=== PATIENT | male | born 1960 | race Caucasian/White ===

== ENCOUNTER → 2017-12-22 08:36 | Outpatient (CLI) | payer OTHER, SELFPAY | PROVIDERS: Family Provider Internal Medicine; PCP Internal Medicine; Visit Provider Nurse Practitioner | DX: M79.672 Pain in left foot (principal) | CPT/HCPCS: 73630 ==

== ENCOUNTER → 2018-01-25 07:48 | Outpatient (CLI) | payer OTHER, SELFPAY ==
[2018-01-25 10:26] LABS: Erythrocyte Sedimentation Rate 28 mm/hr (0-20)
[2018-01-25 10:27] LABS: Absolute Lymphocyte Count 1.81 X10^3/ul (0.83-4.51); Absolute Neutrophil Count 6.9 X10^3/uL (2.0-7.7); Basophil# 0.04 X10^3/uL; Basophil% 0.4 % (0-1); Eosinophil# 0.16 X10^3/uL; Eosinophils% 1.6 % (0-5); Hematocrit 43.3 % (40-54); Hemoglobin 14.5 g/dl (13.0-16.5); Lymphocyte # 1.81 X10^3/ul (4.0); Lymphocyte % 18.2 % (19-41); Mean Corp Hgb Conc 33.5 g/gl (32-36); Mean Corpuscular Hgb 29.9 pg (27.0-32.0); Mean Corpuscular Volume 89.3 fL (80-94); Mean Platelet Vol. 10.6 fl (6.2-12.0); Monocyte# 1.02 X10^3/uL; Monocyte% 10.2 % (0-10); Neutrophil # 6.91 X10^3/uL (2.7-7.7); Neutrophil % 69.3 % (47-70); Platelet Count 243 K/mm3 (150-450); RBC Distribution Width CV 12.9 % (11.6-14.6); RBC Distribution Width SD 42.1 fl (35.1-43.9); Red Blood Count 4.85 M/mm3 (4.6-6.2)
[2018-01-25 10:30] LABS: POSITIVE COUNT NO; POSITIVE DIFFERENTIAL NO; POSITIVE MORPHOLOGY NO
[2018-01-25 10:45] LABS: ALB/GLOB Ratio 0.9 RATIO (0.9-2.4); AST(SGOT) 14 U/L (15-37); Alanine Aminotransfer ALT/SGPT 30 U/L (16-61); Albumin, Serum 3.7 g/dL (3.2-5.0); Alkaline Phosphatase 112 U/L (45-117); Anion Gap 7 (5-15); BUN 18 mg/dL (7-18); BUN/Creat Ratio 17.1 RATIO (10-20); CRP 8.46 mg/L (0.0-3.0); Chloride 108 mmol/L (98-107); Creatinine, Serum 1.05 mg/dL (0.70-1.30); EST Glomerular Filtration Rate 77 mL/min (>60); Est Glom Filt Rate - Afr Amer 94 mL/min (>60); Globulin 4.2 g/dL (2.2-4.2); Glucose 87 mg/dL (74-106); Potassium 4.5 mmol/L (3.5-5.1); Protein, Total 7.9 g/dL (6.4-8.2); Rheumatoid Factor < 10.0 IU/mL (<15); Sodium Level 142 mmol/L (136-145); Uric Acid 6.1 mg/dL (3.5-7.2)
[2018-01-29 16:19] LABS: ANTINUCLEAR ANTIBODIES DIRECT Negative (Negative)
[2018-01-30 22:08] LABS: Lyme IgG P18 Ab Absent (.); Lyme IgG P23 Ab Present (.); Lyme IgG P28 Ab Absent (.); Lyme IgG P30 Ab Absent (.); Lyme IgG P39 Ab Absent (.); Lyme IgG P41 Ab Absent (.); Lyme IgG P45 Ab Absent (.); Lyme IgG P58 Ab Absent (.); Lyme IgG P66 Ab Absent (.); Lyme IgG P93 Ab Absent (.); Lyme IgM P23 Ab Absent (.); Lyme IgM P39 Ab Absent (.); Lyme IgM P41 Ab Absent (.)
[2018-01-31 13:50] LABS: HLA B27 Negative (.); Lyme IgG WB Interpretation Negative (.); Lyme IgM WB Interpretation Negative (.)
== END ==
PROVIDERS: Family Provider Internal Medicine; PCP Internal Medicine; Referring Provider Podiatrist; Visit Provider Podiatrist
DX: L08.9 Local infection of the skin and subcutaneous tissue, unspecified (principal)
CPT/HCPCS: 36415; 80053; 81374; 84550; 85025; 85652; 86038; 86140; 86431; 86617

== ENCOUNTER → 2018-02-20 07:04 | Outpatient (CLI) | payer OTHER, SELFPAY ==
--- NOTE | 2018-02-20 07:09 | MRI_ITS ---
STUDY: MRI LEFT FOREFOOT WITHOUT CONTRAST REASON FOR EXAM: Pain and swelling of the third toe, began 4 months ago with a bite. TECHNIQUE: Standardized fat and water weighted pulse sequences were obtained in all 3 orthogonal planes. COMPARISON: Radiographs 12/22/2017. FINDINGS: Normal metatarsophalangeal joint of the hallux. Normal tibial and fibular sesamoids, with normal sesamoids-first metatarsal articulations. Normal interphalangeal joint of the hallux. Normal proximal and distal phalanges of the great toe. Normal medial and lateral heads of the flexor hallucis brevis tendons. Normal flexor and extensor hallucis longus tendons. Normal second through fifth metatarsophalangeal (MTP) joints. There is mild bone edema of the third proximal and middle phalanges (T2 series 4 images 12, 13; inversion recovery series 7 images 25-31). There is no decreased T1 bone marrow signal to indicate osteomyelitis. Normal proximal and distal interphalangeal joints of the third digit without demonstrated arthropathy (T2 series 4 image 11). There is soft tissue fullness in the plantar aspect of the second webspace (T1 series 5 image 24) measuring 0.7 cm in AP dimension, suggestive of an intermetatarsal neuroma. There is mild flexor tenosynovitis of the third digit at the level of the proximal interphalangeal joint (inversion recovery series 7 images 27, 28) and at the level of the distal third metatarsal (inversion recovery series 7 images 16, 17). Normal extensor tendon of the third digit. Normal visualized metatarsi. Normal intrinsic muscles of the forefoot. There is edema in the subcutis adipose space of the third digit. There is no focal fluid collection to indicate soft tissue abscess. MRI/Lower Ext/No Jt/w/o IMPRESSION: Mild bone edema of the third proximal and middle phalanges. Soft tissue fullness in the plantar aspect of the second webspace suggestive of an intermetatarsal neuroma. Mild flexor tenosynovitis of the third digit. No demonstrated arthropathy of the third digit. Electronically Signed: Austin Osorio MD at 14:13 EST Tel , Service support ,
== END ==
PROVIDERS: Family Provider Internal Medicine; PCP Internal Medicine; Referring Provider Podiatrist; Visit Provider Podiatrist
DX: M86.9 Osteomyelitis, unspecified (principal); M19.072 Primary osteoarthritis, left ankle and foot
CPT/HCPCS: 73718

== ENCOUNTER → 2018-03-19 09:53 | Outpatient (CLI) | payer OTHER, SELFPAY ==
--- NOTE | 2018-03-19 10:02 | RAD_ITS ---
STUDY: X-RAY - PELVIS REASON FOR EXAM: Male, 57 years old. Pain. Foot pain. 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 TECHNIQUE: One view of the pelvis was obtained. COMPARISON: None. FINDINGS: There is a non-specific bowel gas pattern. There are multiple calcified phleboliths. Normal bilateral iliac wings, sacroiliac joints and visualized sacrum. Normal visualized bilateral superior and inferior pubic rami. Normal pubic symphysis. Normal ischial tuberosities. Normal visualized right femoral head. Normal right acetabulum. Normal right hip joint. Normal visualized left femoral head. Normal left acetabulum. Normal left hip joint. RAD/Pelvis 1 or 2 Views IMPRESSION: Normal x-ray examination of the pelvis. Electronically Signed: Cooper Boone MD at 2:21 EST , Service support ,
[2018-03-19 12:16] LABS: Absolute Lymphocyte Count 1.98 X10^3/ul (0.83-4.51); Absolute Neutrophil Count 5.2 X10^3/uL (2.0-7.7); Basophil# 0.03 X10^3/uL; Basophil% 0.4 % (0-1); Eosinophil# 0.12 X10^3/uL; Eosinophils% 1.5 % (0-5); Hematocrit 43.5 % (40-54); Hemoglobin 14.3 g/dl (13.0-16.5); Lymphocyte # 1.98 X10^3/ul (4.0); Lymphocyte % 24.5 % (19-41); Mean Corp Hgb Conc 32.9 g/gl (32-36); Mean Corpuscular Hgb 29.7 pg (27.0-32.0); Mean Corpuscular Volume 90.2 fL (80-94); Mean Platelet Vol. 10.5 fl (6.2-12.0); Monocyte# 0.78 X10^3/uL; Monocyte% 9.6 % (0-10); Neutrophil # 5.15 X10^3/uL (2.7-7.7); Neutrophil % 63.6 % (47-70); Platelet Count 237 K/mm3 (150-450); RBC Distribution Width CV 13.4 % (11.6-14.6); RBC Distribution Width SD 43.5 fl (35.1-43.9); Red Blood Count 4.82 M/mm3 (4.6-6.2); White Blood Count 8.1 K/mm3 (4.4-11.0)
[2018-03-19 12:22] LABS: POSITIVE COUNT NO; POSITIVE DIFFERENTIAL NO; POSITIVE MORPHOLOGY NO
[2018-03-19 12:28] LABS: ALB/GLOB Ratio 0.9 RATIO (0.9-2.4); AST(SGOT) 22 U/L (15-37); Alanine Aminotransfer ALT/SGPT 28 U/L (16-61); Albumin, Serum 3.8 g/dL (3.2-5.0); Alkaline Phosphatase 123 U/L (45-117); Anion Gap 9 (5-15); BUN 18 mg/dL (7-18); Calcium,Total 9.2 mg/dL (8.5-10.1); Chloride 105 mmol/L (98-107); Creatinine, Serum 1.06 mg/dL (0.70-1.30); EST Glomerular Filtration Rate 76 mL/min (>60); Est Glom Filt Rate - Afr Amer 92 mL/min (>60); Globulin 4.2 g/dL (2.2-4.2); Glucose 86 mg/dL (74-106); Potassium 4.4 mmol/L (3.5-5.1); Rheumatoid Factor < 10.0 IU/mL (<15); Sodium Level 141 mmol/L (136-145)
[2018-03-21 11:56] LABS: CCP IgG Antibodies 6 units (0-19); HEPATITIS B SURFACE AG Negative (Negative); Hep B Surface Antibodies Reactive (.); Hep C Antibodies 0.2 s/co ratio (0.0-0.9)
--- OUTSIDE RECORDS SUMMARY | 2018-05-12 14:34 | XMS RPT_ITS | Continuity of Care Document ---
:1960 Author Organization [facility] Address [address] [facility] [address] [place] [address] Phone Care Team Providers Name Role Phone Chelsey Pritchett MD Unavailable Dr. Clemente Flynn Unavailable Tien Jones Unavailable Dr. Hunter Mayers Unavailable Dr. Diallo Jacobo Unavailable Long LEASING DIRECTOR, Rina L Unavailable Unavailable SARIKA Nolan Unavailable Unavailable Britneykeltonradha LEON, Tessy Unavailable Unavailable Unavailable Problems Name Dates Details Abnormal blood sugar (R73.09, 790.29) Comments: went as high 6.1. some better working on 5.8 then recently 5.7 Status: Active Alcohol dependence in sustained full remission (F10.21, 303.93) 1986 Comments: still goes to meetings Status: Active AV fistula (I77.0, 447.0) Comments: in right groin per pt and follow up with Dr. bear. reviewed with patient specialist's note. he had repeat US 10-15 needs to call and follow up us summer 2015. . seen gonzalez 7-16 check US. will follo w yearly. if signs and symptoms surgry. will see what gonzalez found at vascular care conference. 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 Gotti. he wants to rebreak and move heal and redo surgery. stable now still pain will not do more surgery per pt. Dr. rosario and pt not like will send to another opinion he does not want to do if c anhelp risk with AV fistula and DVT with another surgery so that issue Status: Active Benign essential hypertension (I10, 401.1) Comments: he does not want the water pill because cause achey willstop this and he must do low salt diet. Status: Active BMI 40.0-44.9, adult (Z68.41, V85.41) Comments: 42.38 Status: Active BMI 45.0-49.9, adult (Z68.42, V85.42) Status: Active Chronic sinusitis (J32.9, 473.9) Status: Active Encounter for routine history and physical exam for male (Z00.00, V70.0) Comments: 04-02 [facility] physical PSA , colonoscopy 2013(rpt. 10 years)TDAP 2009. Hep C screen 07-01. derm check 04-02. need eye check. dentistplan removal teeth -18 Status: Active Foot pain, left (M79.672, 729.5) Comments: ? Mortons neuroma suggest xray to assure no fracture, and referal to corporate scheduler for insert Status: Active History of pneumonia (Z87.01, V12.61) Comments: was in hospital and at risk Status: Active History of thrombophlebitis (Z86.72, V12.52) Comments: MTHFR mutation. no signs and symptoms of clot. xarelto for long car or plane ride but with fistula and new literature on risk worry need on for life. pt obese and more sedatary. will call netzleyDr. Bear said no to the filter prior to surgery unless there is some reason he cannot tolerate DVT prevention, and Dr. Bear is fine comfortable with aspirin 325mg therapy qd, no need for xarelto qd Status: Active Hyperlipidemia, mild (E78.5, 272.4) Comments: not take statin because worry side effects LDL 130's if loose weightcutting out animal fat eat good fats Status: Active Infected tooth (K04.7, 522.4) Status: Active Inguinal hernia without obstruction or gangrene (K40.90, 550.90) Status: Active Low back pain, episodic (M54.5, 724.2) Comments: right LBP more burning ? tight muscles by how describe if fever, night pain. will give stretches for legs and lower back if worsen kevin call not sound like urine or kidney stone Status: Active MTHFR mutation (E72.12, 270.4) Comments: on folic acid 5 mg a day and vit B complex daily but not tolerate so not on anythign Status: Active Obesity (E66.9, 278.00) Comments: started exercise. mainly portion control and limiting carbs. eat breakfast 3-4 days a week. talk about diet and carbs. is trying to eat earlier in [id number] HS. started 40's over 200. Status: Active Screening for prostate cancer (Z12.5, V76.44) Status: Active [place] (Q66.89, 754.70) Comments: right foot heal nonunion fracture. 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) (F17.201, V15.82) Status: Active Medications Name Dates Details ASPIRIN EC, 325MG (Oral Tablet Delayed Release) 1 (one) Tablet DR Tablet DR qd for 0 days Quantity: 30 {Tablet} Refills: 0 Ordered:24-Jul-2015 Shreyas PURDY, Chelsey Winters MD, Chelsey Hutchins Start : 22-Jun-2015 Active Fish Oil Burp-Less 500 MG Oral Capsule 1 (one) Capsule Capsule bid for 0 days Quantity: 60 {Capsule} Refills: 0 Ordered:12-Aug-2016 SARIKA Nolan Start : 28-Jul-2016 Active Losartan Potassium 100 MG Oral Tablet 1 (one) Tablet Tablet qd for 0 days Quantity: 30 {Tablet} Refills: 4 Ordered:27-Nov-2017 Rina Byers LPN Start : 27-Nov-2017 Active MetFORMIN HCl 500 MG Oral Tablet 1 (one) Tablet in am with breakfast for 0 days Quantity: 30 {Tablet} Refills: 6 Ordered:27-Dec-2017 Fast DO, Bambi A Start : 27-Dec-2017 Active Multivitamin Oral Tablet 1 (one) qd Active VIAGRA, 50MG (Oral Tablet) 1 Tablet uad for 0 days Quantity: 10 {Tablet} Refills: 0 Ordered:04-Oct-2011 SARIKA Nolan Start : 04-Oct-2011 Active ATIVAN, 0.5MG (Oral Tablet) 1 Tablet prn for 0 days Quantity: 30 {Tablet} Refills: 0 Ordered:06-May-2011 SARIKA Nolan Start : 15-Oct-2010 End : 06-May-2011 Inactive Comments:thirty B complex vitamins 1 qd Inactive Biaxin 500 MG Oral Tablet 1 (one) Tablet bid for 0 days Quantity: 20 {Tablet} Refills: 0 Ordered:06-Jul-2017 SARIKA Nolan Start : 15-May-2017 End : 06-Jul-2017 Inactive Comments:Hold Lipitor while taking BYSTOLIC, 2.5MG (Oral Tablet) 1 Tablet daily for 14 days Refills: 0 Ordered:28-Jul-2010 Chelsey Pritchett MD, MD, Dana M Start : 08-Jun-2010 End : 22-Jun-2010 Inactive CONTRAVE, 8-90MG (Oral Tablet Extended Release 12 Hour) 1 (one) Tablet ER 12HR uad for 30 days Refills: 2 Ordered:21-May-2015 SARIKA Nolan Start : 23-Jan-2015 End : 21-May-2015 Inactive Comments:thirty daysstart 1 at night for 1 week then 1 bid for 1 week then 2 in am and 1 at night for 1 weekthen 2 bid. DOXYCYCLINE HYCLATE, 100MG (Oral Capsule) 1 Capsule bid for 10 days Quantity: 20 {Capsule} Refills: 0 Ordered:06-May-2011 Chelsey Pritchett MD, MD, Dana M Start : 06-May-2011 End : 16-May-2011 Inactive FOLIC ACID, 1MG (Oral Tablet) 5 Tablet qd for 0 days Quantity: 150 {Tablet} Refills: 6 Ordered:26-Feb-2013 Chelsey Pritchett MD, MD, Dana M Start : 26-Feb-2013 End : 26-Feb-2013 Inactive Comments:didnt feel well with it -- FRAGMIN, 22818EBWQ/0.5ML (Subcutaneous Injectable) uad 77150 units bid (33307 UNIT/0.5ML) Inactive FRAGMIN, 82861BPZZ/0.5ML (Subcutaneous Injectable) 1 Injectable bid for 2 days Quantity: 4 {Injectable} Refills: 0 Ordered:05-Aug-2010 SARIKA Nolan Start : 05-Aug-2010 End : 07-Aug-2010 Inactive Lipitor 10 MG Oral Tablet 1 (one) Tablet at night for 0 days Quantity: 30 {Tablet} Refills: 4 Ordered:06-Jul-2017 Chelsey Pritchett MD, MD, Dana M Start : 06-Jul-2017 End : 06-Jul-2017 Inactive Comments:does not like the side effects MULTI FOR HIM (Oral Tablet) 1 qd for 0 days Refills: 0 Ordered:12-Apr-2013 SARIKA oNlan End : 12-Apr-2013 Inactive Nystatin 158310 UNIT/GM External Cream uad Cream bid to affected area(s) for 0 days Quantity: 1 {Tube} Refills: 3 Ordered:15-Mar-2018 SARIKA Nolan Start : 22-Dec-2017 End : 15-Mar-2018 Inactive Olmesartan Medoxomil 40 MG Oral Tablet 1 (one) Tablet qd for 0 days Quantity: 30 {Tablet} Refills: 6 Ordered:27-Nov-2017 Chelsey Pritchett MD, MD, Chelsey Hutchins Start : 27-Nov-2017 End : 27-Nov-2017 Inactive Comments:per patient it has also been re called 11-27-17 Terbinafine HCl 1 % External Cream 1 (one) Application bid for 21 days Quantity: 1 {Tube} Refills: 0 Ordered:22-Dec-2017 Betty Davis CNP Start : 22-Dec-2017 End : 12-Jan-2018 Inactive TRIAMTERENE-HCTZ, 37.5-25MG (Oral Capsule) 1 (one) Capsule daily for 0 days Quantity: 30 {Capsule} Refills: 6 Ordered:28-Mar-2014 SARIKA Nolan Start : 03-Jan-2014 End : 28-Mar-2014 Inactive Valsartan 320 MG Oral Tablet 1 (one) Tablet Tablet in am for 0 days Quantity: 30 {Tablet} Refills: 6 Ordered:31-Oct-2017 SARIKA Nolan Start : 30-Mar-2017 End : 31-Oct-2017 Inactive Comments:pt will call when need VICODIN, 5-500MG (Oral Tablet) 1 Tablet q 4-6 hours prn for 0 days Quantity: 30 {Tablet} Refills: 0 Ordered:06-May-2011 SARIKA Nolan Start : 15-Oct-2010 End : 06-May-2011 Inactive WARFARIN SODIUM, 5MG (Oral Tablet) 1 qd as directed (5 MG) Inactive XARELTO, 10MG (Oral Tablet) 1 Tablet daily for 2 weeks for 0 days Quantity: 14 {Tablet} Refills: 0 Ordered:12-Apr-2013 SARIKA Nolan Start : 26-Feb-2013 End : 12-Apr-2013 Inactive XARELTO, 20MG (Oral Tablet) 1 (one) Tablet Tablet qd for 0 days Quantity: 30 {Tablet} Refills: 3 Ordered:22-Jun-2015 SARIKA Nolan Start : 18-Sep-2014 End : 22-Jun-2015 Inactive Valsartan-Hydrochlorothiazide 160-12.5 MG Oral Tablet 1 (one) Tablet in am for 0 days Quantity: 30 {Tablet} Refills: 6 Ordered:30-Mar-2017 Chelsey Pritchett MD, MD, Dana M Start : 30-Mar-2017 End : 30-Mar-2017 Discontinued VITAMIN B COMPLEX (Oral Capsule) 1 Capsule qd for 0 days Quantity: 30 {Capsule} Refills: 6 Ordered:02-Aug-2012 Chelsey Pritchett MD, MD, Dana M Start : 02-Aug-2012 End : 26-Feb-2013 Discontinued Comments:This order discontinued per [employer]. WARFARIN SODIUM, 4MG (Oral Tablet) 2 (two) Tablet qd as directed for 0 days Quantity: 60 {Tablet} Refills: 3 Ordered:09-Dec-2011 Chelsey Pritchett MD, MD, Dana M Start : 09-Dec-2011 End : 17-Mar-2012 Discontinued WARFARIN SODIUM, 5MG (Oral Tablet) 1.5 Tablet qd as directed for 0 days Quantity: 60 {Tablet} Refills: 3 Ordered:06-Mar-2012 Chelsey Pritchett MD, MD, Dana M Start : 06-Mar-2012 End : 17-Mar-2012 Discontinued Allergies and Adverse Reactions Name Dates Details Adhesive Tape (Allergy) Status: Active Curity Suture Removal *MEDICAL DEVICES* (Allergy) Status: Active Comments: dissolvable sutures Penicillins (Allergy) Status: Active Past Medical History Name Dates Details Abnormal blood chemistry (R79.9, 790.6) Comments: prolactin--slightly elevated will recheck Status: Inactive as of 23-Jan-2015 Actinic keratosis (L57.0, 702.0) Comments: reveiwed with patient bx Status: Inactive as of 28-Jul-2008 Athlete's foot, left (B35.3, 110.4) Status: Resolved as of 15-Mar-2018 Decreased sexual response (R68.82, 302.72) Status: Inactive as of 18-Jun-2015 Deep vein thrombosis, unspecified laterality (453.40) Comments: 4-11 after foot surgery.. doppler --- better. that time not have anticaod after surgery plus was more major. this surger 03-21-13 only going to take out screw nto as major. Status: Inactive as of 12-Apr-2013 Disorder of the skin and subcutaneous tissue, unspecified (L98.9, 709.9) Status: Inactive as of 12-Apr-2013 Elevated blood-pressure reading without diagnosis of hypertension (R03.0, 796.2) Comments: better now Status: Inactive as of 28-Mar-2014 Encounter for hepatitis C virus screening test for high risk patient (Z11.59, V73.89) Status: Inactive as of 12-Aug-2016 Exposure to hepatitis C (Z20.5, V01.79) Comments: he was born bin age group needs tested plus work with [employer] for [employer]. Status: Resolved as of 06-Jul-2017 Foot pain (M79.673, 729.5) Comments: had surgery working with Dr. blackwell. reviewed with patient specialist's note and disability papers. nonunion right foot and screw backing out. make need repeat surgery and put in bone wedge to put ba ck together. will do disability for 1 year. Status: Inactive as of 26-Nov-2012 ganglion cyst Comments: reassurance told to get removed again if bother him Status: Inactive as of 14-Oct-2008 Hematuria, unspecified (R31.9, 599.70) Comments: did have cytoscopy in past. seen uro and sisters have too. Status: Inactive as of 12-Apr-2013 Ingrowing nail (L60.0, 703.0) Comments: infected. kevin treat with atb not betternext weekthen remove will hold one day of coumadin and have inr planned in 02/16 week to check. will soak Status: Inactive as of 26-Nov-2012 Low HDL (under 40) (E78.6, 272.5) Comments: reveiwed with patient recent tests hdl good Status: Inactive as of 23-Jan-2015 NEED FOR PROPHYLACTIC VACCINATION AND INOCULATION AGAINST INFLUENZA (V04.81) (Renamed from Need for prophylactic vaccination and inoculation against influenza) (Z23, V04.81) Status: Inactive as of 23-Jan-2015 Neoplasm of uncertain behavior of skin (D48.5, 238.2) Comments: 2 areas on area--one punch6 mm biopsy upper arm and lower arm [id number] Status: Inactive as of 28-Jul-2008 Other and unspecified alcohol dependence, unspecified drinking behavior (F10.20, 303.90) Comments: still in remission Status: Inactive as of 26-Nov-2012 Other general medical examination for administrative purposes (Z02.89, V70.3) Comments: see form Status: Inactive as of 12-Apr-2013 Personal history of thrombosis of leg (V12.51) Comments: 4-11 after foot surgery.. doppler --- better. that time not have anticaod after surgery plus was more major. this surger 03-21-13 only going to take out screw nto as major. Status: Inactive as of 28-Mar-2014 Pneumococcal vaccination given (Z23, V06.6) Status: Inactive as of 28-Jul-2016 Pre-operative examination (Z01.818, V72.84) Comments: will be seen iat PAT and from my standpoint cleared form surgery if their ekg and labs okay Status: Inactive as of 23-Jan-2015 Rash (R21, 782.1) Comments: yeast nystatni help needs more if seat and in heat worsen Status: Inactive as of 03-Jul-2014 Rash (R21, 782.1) Comments: rt ? from compression sock ( sigvaris XL) and swelling vs other, changing compression hose Status: Resolved as of 15-Mar-2018 Screening examination for infectious disease (Z11.9, V75.9) Status: Inactive as of 12-Aug-2016 Screening for measles (Z11.59, V73.2) Status: Inactive as of 12-Aug-2016 Screening for rubella (Z11.59, V73.3) Status: Inactive as of 12-Aug-2016 Sebaceous cyst (L72.3, 706.2) Status: Inactive as of 26-Nov-2012 Unspecified Diagnosis Status: Inactive as of 26-Nov-2012 Unspecified Diagnosis Status: Inactive as of 12-Apr-2013 Unspecified Diagnosis Status: Resolved as of 14-Mar-2017 Unspecified disorder of male genital organs (608.9) Status: Inactive as of 28-Mar-2014 Procedures Procedure Dates Details Colonoscopy Completed Comments: 08-13-13 Jose repeat in 10 years Sugery to right foot/heel area Completed Comments: patient born with club foot x2 with Dr. Blackwell last surgery 03-21-2013 club foot hindu Date Value Details 20-Feb-2018 Lower Ext/No Jt/w/o Result: Comments: See Note; NOTES: [facility] Imaging Services [address] [facility] [place] [address] Lower Ext/No Jt/w/o MR#: [id number] Acct: [id number] Name: KERA RAY Jr. Rep #: [id number] : 1960 M 57 From: Austin Osorio MD PCP: Chelsey Pritchett MD Status: REG CLI Study: Lower Ext/No Jt/w/o Date of Exam: 02/20/18 Exam# [id number] Ordering Dr: Diallo Jacobo DPM STUDY: MRI LEF T FOREFOOT WITHOUT CONTRAST REASON FOR EXAM: Pain and swelling of the third toe, began 4 months ago with a bite. TECHNIQUE: Standardized fat and water weighted pulse sequences were obtained in all 3 o rthogonal planes. COMPARISON: Radiographs 12/22/2017. FINDINGS: Normal metatarsophalangeal joint of the hallux. Normal tibial and fibular sesamoids, with normal sesam oids-first metatarsal articulations. Normal interphalangeal joint of the hallux. Normal proximal and distal phalanges of the great toe. Normal medial and lateral heads of the flexor hallucis brevis ten dons. Normal flexor and extensor hallucis longus tendons. Normal second through fifth metatarsophalangeal (MTP) joints. There is mild bone edema of the third proximal and middle phalanges (T2 series 4 images 12, 13; inversion recovery series 7 images 25-31). There is no decreased T1 bone marrow signal to indicate osteomyelitis. Normal proximal and distal interphalangeal joints of the third digit with out demonstrated arthropathy (T2 series 4 image 11). There is soft tissue fullness in the plantar aspect of the second webspace (T1 series 5 image 24) measuring 0.7 cm in AP dimension, suggestive of an intermetatarsal neuroma. There is mild flexor tenosynovitis of the third digit at the level of the proximal interphalangeal joint (inversion recovery series 7 images 27, 28) and at the level of the di stal third metatarsal (inversion recovery series 7 images 16, 17). Normal extensor tendon of the third digit. Normal visualized metatarsi. Normal intrinsic muscles of the forefoot. There is edema in t he subcutis adipose space of the third digit. There is no focal fluid collection to indicate soft tissue abscess. MRI/Lower Ext/No Jt/w/o IMPRESS ION: Mild bone edema of the third proximal and middle phalanges. Soft tissue fullness in the plantar aspect of the second webspace suggestive of an intermetatarsal neuroma. Mild flexor tenosynovitis o f the third digit. No demonstrated arthropathy of the third digit. Electronically Signed: Austin Osorio MD at 14:13 EST Tel , Service support , Fax CC: Chelsey Pritchett MD; Diallo Jacobo DPM Consumer Science Teacher: Signed 22-Dec-2017 Foot min 3 Views Result: Comments: See Note; NOTES: [facility] Imaging Services [address] [place] [address] Foot min 3 Views MR#: [id number] Acct: [id number] Name: KERA RAY JR Rep #: [id number] : 1960 M 57 From: Gricelda Weiss MD PCP: Chelsey Pritchett MD Status: REG CLI Study: Foot min 3 Views Date of Exam: 12/22/17 Exam# [id number] Ordering Dr: Betty Davis STUDY: X-RAY - LEFT FOOT C LINICAL: Male, 57 years old. Mid foot pain TECHNIQUE: Three view(s) of the foot were obtained. COMPARISON: None. FINDINGS: Bones: There are no acute osseous abnorm alities. Joints: The visualized joints are unremarkable. Soft tissues: The soft tissues are unremarkable. Foreign body: None RAD/Foot min 3 V iews IMPRESSION: No significant abnormalities are seen radiographically in the left foot. If further evaluation is needed or there is clinical concern for a stress fracture, an MRI or nuclear medicine study can be obtained. Electronically Signed: Gricelda Weiss MD at 1:38 EDT Tel Direct: [phone], Service support , CC: Betty Davis WOOD SHINGLE ROOFER; Cehlsey Pritchett MD Consumer Science Teacher: Signed 27-Sep-2015 Venous Duplex Lower Extremity Result: Comments: See Note; NOTES: [facility] Cardiovascular Services [address] [place] [address] Venous Duplex US, Unilateral 09/21/15 0757 MR#: [id number] Acct: [id number] Name: KERA RAY JR Rep #: [id number] : 1960 55 From: Jorge L Vail MD Attending Dr: TIEN BEAR MD Status: REG CLI Ordering Dr: Tien Bear MD Date: 09/21/15 Location: CV S Sex: M C Admitted: Reason For Study: Thrombosis of deep veins of RLE RIGHT LEFT GSV is normal. CFV is compressible, spontaneous, phasic , PTV is compressible. competent, and demonstrates n ormal RT PerV is compressible. augmentation. Rt CFV, Rt FV prox, Rt PopV, and Rt T/P trunk are partially compressible with bright intraluminal echoes consistent with chronic DVT Rt FV mid and dis luan have chronic vein wall thickening Rt CFV has pulsatile venous flow. Procedure Exam performed in department. A preliminary report was called and/or faxed to Dr. Bear. Interpretation Summa ry there is chronic DVT noted of the right lower extremity. Ordering Physician: URSZULA BEAR Referring Physician: Chelsey Pritchett Performed By: Audrey Fan, JOHANN, RVT 09/27/15 0947 Date Jorge L Vail MD CC: Chelsey Pritchett MD; TIEN BEAR MD Date Dictated: 09/21/15 0757 Date Transcribed: 09/27/15 0947 Consumer Science Teacher: Signed Immunization Name Dates Details Influenza, preservative free, injectable Comments: 01-30 jeff dozier Pneumococcal (2 years and up) on: Mar-2016 Comments: in our office Tdap (7 years and up) Comments: 01-30 jeff dozier Family History Unknown Family Member Name Dates Details Father Comments: HTN, obesity, smoke old age 76 yo, AAA Status: Active Mother Comments: Smoker with complicatinos. melanoma face, 75yo think CVA took her. had carotid atherosclerosis Status: Active Negative Family History of: Comments: Prostate or colon CA Status: Active Sister 1 Comments: melanoma face, obesity Status: Active Social History Name Dates Details Caffeine Use Comments: 3-4 cups coffee qd Status: Active Current Work/Study Status: Disabled. Status: Active Exercise History Comments: recumbant bike and walk some. Status: Active Living Situation Comments: lives with , church important Status: Active No Drug Use Status: Active Non Drinker/No Alcohol Use Comments: sober as of 1986 Status: Active Tobacco Use Comments: Quit 19 years ago Status: Active Tobacco use: Former smoker. Status: Inactive Vital Signs Date Test Result Details :14 Temperature 97.2 f Pulse 72 /min Comments: Pattern: Regular Respiration Rate 16 /min Comments: Pattern: Unlabored O2 SAT 97 % Comments: Room air BP Systolic 122 mm[Hg] Comments: Patient Position: Sitting; Cuff Location: Left Arm; Cuff Size: Standard BP Diastolic 78 mm[Hg] Comments: Patient Position: Sitting; Cuff Location: Left Arm; Cuff Size: Standard Weight 278 lb Height 64 in Body Mass Index Calculated 47.72 kg/m2 Body Surface Area Calculated 2.25 m2 :56 Temperature 97.6 f Comments: Method: Temporal Pulse 70 /min Comments: Pattern: Regular Respiration Rate 20 /min Comments: Pattern: Unlabored O2 SAT 98 % Comments: Room air BP Systolic 124 mm[Hg] Comments: Patient Position: Sitting; Cuff Location: Left Arm; Cuff Size: Large BP Diastolic 82 mm[Hg] Comments: Patient Position: Sitting; Cuff Location: Left Arm; Cuff Size: Large Weight 285 lb Height 64 in Body Mass Index Calculated 48.92 kg/m2 Body Surface Area Calculated 2.27 m2 :25 BP Systolic 132 mm[Hg] Comments: Patient Position: Sitting; Cuff Location: Left Arm; Cuff Size: Large BP Diastolic 80 mm[Hg] Comments: Patient Position: Sitting; Cuff Location: Left Arm; Cuff Size: Large Weight 280 lb Height 64 in Body Mass Index Calculated 48.06 kg/m2 Body Surface Area Calculated 2.26 m2 :58 Temperature 97.3 f Comments: Method: Temporal Pulse 78 /min Comments: Pattern: Regular Respiration Rate 20 /min Comments: Pattern: Unlabored O2 SAT 98 % Comments: Room air BP Systolic 124 mm[Hg] Comments: Patient Position: Sitting; Cuff Location: Left Arm; Cuff Size: Large BP Diastolic 84 mm[Hg] Comments: Patient Position: Sitting; Cuff Location: Left Arm; Cuff Size: Large Weight 284 lb Height 68 in Body Mass Index Calculated 43.18 kg/m2 Body Surface Area Calculated 2.37 m2 :04 Temperature 97.6 f Comments: Method: Temporal Pulse 88 /min Comments: Pattern: Regular Respiration Rate 16 /min Comments: Pattern: Unlabored O2 SAT 95 % Comments: Room air BP Systolic 130 mm[Hg] Comments: Patient Position: Sitting; Cuff Location: Left Arm; Cuff Size: Large BP Diastolic 80 mm[Hg] Comments: Patient Position: Sitting; Cuff Location: Left Arm; Cuff Size: Large Weight 278 lb Height 68 in Body Mass Index Calculated 42.27 kg/m2 Body Surface Area Calculated 2.35 m2 :28 Pulse 66 /min Comments: Pattern: Regular Respiration Rate 18 /min O2 SAT 98 % Comments: Room air BP Systolic 124 mm[Hg] Comments: Patient Position: Sitting BP Diastolic 62 mm[Hg] Comments: Patient Position: Sitting Weight 282 lb Height 68 in Body Mass Index Calculated 42.88 kg/m2 Body Surface Area Calculated 2.37 m2 :06 Temperature 97.1 f Comments: Method: Temporal Pulse 73 /min Comments: Pattern: Regular Respiration Rate 16 /min Comments: Pattern: Unlabored O2 SAT 97 % Comments: Room air BP Systolic 130 mm[Hg] Comments: Patient Position: Sitting; Cuff Location: Left Arm; Cuff Size: Standard BP Diastolic 80 mm[Hg] Comments: Patient Position: Sitting; Cuff Location: Left Arm; Cuff Size: Standard Weight 286 lb Height 68 in Body Mass Index Calculated 43.49 kg/m2 Body Surface Area Calculated 2.38 m2 :00 Weight 291 lb Height 68 in Body Mass Index Calculated 44.25 kg/m2 Body Surface Area Calculated 2.4 m2 :37 Temperature 97.2 f Comments: Method: Temporal Pulse 82 /min Comments: Pattern: Regular Respiration Rate 20 /min Comments: Pattern: Unlabored O2 SAT 97 % Comments: Room air BP Systolic 116 mm[Hg] Comments: Patient Position: Sitting; Cuff Location: Left Arm; Cuff Size: Large BP Diastolic 78 mm[Hg] Comments: Patient Position: Sitting; Cuff Location: Left Arm; Cuff Size: Large Weight 287 lb Height 69 in Body Mass Index Calculated 42.38 kg/m2 Body Surface Area Calculated 2.41 m2 :39 Temperature 97.9 f Comments: Method: Temporal Pulse 80 /min Comments: Pattern: Regular Respiration Rate 20 /min Comments: Pattern: Unlabored O2 SAT 98 % Comments: Room air BP Systolic 120 mm[Hg] Comments: Patient Position: Sitting; Cuff Location: Left Arm; Cuff Size: Large BP Diastolic 80 mm[Hg] Comments: Patient Position: Sitting; Cuff Location: Left Arm; Cuff Size: Large Weight 288 lb Height 69 in Body Mass Index Calculated 42.53 kg/m2 Body Surface Area Calculated 2.41 m2 :00 Weight 291 lb Height 69 in Body Mass Index Calculated 42.97 kg/m2 Body Surface Area Calculated 2.42 m2 :15 Temperature 98.2 f Pulse 87 /min Comments: Pattern: Regular Respiration Rate 18 /min Comments: Pattern: Unlabored O2 SAT 95 % Comments: Room air BP Systolic 132 mm[Hg] Comments: Patient Position: Sitting; Cuff Location: Left Arm; Cuff Size: Standard BP Diastolic 84 mm[Hg] Comments: Patient Position: Sitting; Cuff Location: Left Arm; Cuff Size: Standard Weight 285.5 lb Height 69 in Body Mass Index Calculated 42.16 kg/m2 Body Surface Area Calculated 2.4 m2 :18 Temperature 97.6 f Comments: Method: Temporal Pulse 82 /min Comments: Pattern: Regular Respiration Rate 20 /min Comments: Pattern: Unlabored O2 SAT 95 % Comments: Room air BP Systolic 124 mm[Hg] Comments: Patient Position: Sitting; Cuff Location: Left Arm; Cuff Size: Large BP Diastolic 80 mm[Hg] Comments: Patient Position: Sitting; Cuff Location: Left Arm; Cuff Size: Large Weight 296 lb Height 69 in Body Mass Index Calculated 43.71 kg/m2 Body Surface Area Calculated 2.44 m2 :17 Temperature 97.6 f Comments: Method: Temporal Pulse 74 /min Comments: Pattern: Regular Respiration Rate 20 /min Comments: Pattern: Unlabored O2 SAT 97 % Comments: Room air BP Systolic 122 mm[Hg] Comments: Patient Position: Sitting; Cuff Location: Left Arm; Cuff Size: Large BP Diastolic 84 mm[Hg] Comments: Patient Position: Sitting; Cuff Location: Left Arm; Cuff Size: Large Weight 290 lb Height 69 in Body Mass Index Calculated 42.83 kg/m2 Body Surface Area Calculated 2.42 m2 :34 Temperature 97.6 f Comments: Method: Temporal Pulse 80 /min Comments: Pattern: Regular Respiration Rate 20 /min Comments: Pattern: Unlabored O2 SAT 95 % Comments: Room air BP Systolic 130 mm[Hg] Comments: Patient Position: Sitting; Cuff Location: Left Arm; Cuff Size: Large BP Diastolic 80 mm[Hg] Comments: Patient Position: Sitting; Cuff Location: Left Arm; Cuff Size: Large Weight 274 lb Height 69 in Body Mass Index Calculated 40.46 kg/m2 Body Surface Area Calculated 2.36 m2 :26 Temperature 97.6 f Comments: Method: Temporal Pulse 80 /min Comments: Pattern: Regular Respiration Rate 20 /min Comments: Pattern: Unlabored O2 SAT 97 % Comments: Room air BP Systolic 116 mm[Hg] Comments: Patient Position: Sitting; Cuff Location: Left Arm; Cuff Size: Large BP Diastolic 84 mm[Hg] Comments: Patient Position: Sitting; Cuff Location: Left Arm; Cuff Size: Large Weight 286 lb Height 69 in Body Mass Index Calculated 42.23 kg/m2 Body Surface Area Calculated 2.4 m2 :15 Temperature 97.6 f Comments: Method: Temporal Pulse 74 /min Comments: Pattern: Regular Respiration Rate 20 /min Comments: Pattern: Unlabored O2 SAT 97 % Comments: Room air BP Systolic 124 mm[Hg] Comments: Patient Position: Sitting; Cuff Location: Left Arm; Cuff Size: Large BP Diastolic 90 mm[Hg] Comments: Patient Position: Sitting; Cuff Location: Left Arm; Cuff Size: Large Weight 287 lb Height 69 in Body Mass Index Calculated 42.38 kg/m2 Body Surface Area Calculated 2.41 m2 :22 Temperature 97.6 f Comments: Method: Temporal Pulse 77 /min Comments: Pattern: Regular Respiration Rate 18 /min Comments: Pattern: Unlabored O2 SAT 97 % Comments: Room air BP Systolic 130 mm[Hg] Comments: Patient Position: Sitting; Cuff Location: Left Arm; Cuff Size: Large BP Diastolic 86 mm[Hg] Comments: Patient Position: Sitting; Cuff Location: Left Arm; Cuff Size: Large Weight 287 lb Height 69 in Body Mass Index Calculated 42.38 kg/m2 Body Surface Area Calculated 2.41 m2 :55 Temperature 97.6 f Comments: Method: Temporal Pulse 78 /min Comments: Pattern: Regular Respiration Rate 18 /min Comments: Pattern: Unlabored O2 SAT 99 % Comments: Room air BP Systolic 142 mm[Hg] Comments: Patient Position: Sitting; Cuff Location: Left Arm; Cuff Size: Standard BP Diastolic 82 mm[Hg] Comments: Patient Position: Sitting; Cuff Location: Left Arm; Cuff Size: Standard Weight 285 lb Height 69 in Body Mass Index Calculated 42.09 kg/m2 Body Surface Area Calculated 2.4 m2 :29 Pulse 74 /min Comments: Pattern: Regular Respiration Rate 16 /min Comments: Pattern: Unlabored O2 SAT 97 % Comments: Room air BP Systolic 142 mm[Hg] Comments: Patient Position: Sitting; Cuff Location: Left Arm; Cuff Size: Standard BP Diastolic 80 mm[Hg] Comments: Patient Position: Sitting; Cuff Location: Left Arm; Cuff Size: Standard Weight 275 lb Height 69 in Body Mass Index Calculated 40.61 kg/m2 Body Surface Area Calculated 2.37 m2 :59 Temperature 97.1 f Comments: Method: Temporal Pulse 74 /min Comments: Pattern: Regular Respiration Rate 20 /min Comments: Pattern: Unlabored O2 SAT 97 % Comments: Room air BP Systolic 120 mm[Hg] Comments: Patient Position: Sitting; Cuff Location: Left Arm; Cuff Size: Large BP Diastolic 86 mm[Hg] Comments: Patient Position: Sitting; Cuff Location: Left Arm; Cuff Size: Large Weight 274 lb Height 69 in Body Mass Index Calculated 40.46 kg/m2 Body Surface Area Calculated 2.36 m2 :05 Temperature 97.6 f Comments: Method: Temporal Pulse 78 /min Comments: Pattern: Regular Respiration Rate 20 /min Comments: Pattern: Unlabored O2 SAT 98 % Comments: Room air BP Systolic 124 mm[Hg] Comments: Patient Position: Sitting; Cuff Location: Left Arm; Cuff Size: Large BP Diastolic 82 mm[Hg] Comments: Patient Position: Sitting; Cuff Location: Left Arm; Cuff Size: Large Weight 275 lb Height 69 in Body Mass Index Calculated 40.61 kg/m2 Body Surface Area Calculated 2.37 m2 :01 BP Systolic 152 mm[Hg] Comments: Patient Position: Sitting; Cuff Size: Large BP Diastolic 100 mm[Hg] Comments: Patient Position: Sitting; Cuff Size: Large :38 Temperature 97.1 f Comments: Method: Oral Pulse 80 /min Comments: Pattern: Regular Respiration Rate 18 /min Comments: Pattern: Unlabored O2 SAT 97 % Comments: Room air BP Systolic 158 mm[Hg] Comments: Patient Position: Sitting; Cuff Location: Left Arm; Cuff Size: Standard BP Diastolic 82 mm[Hg] Comments: Patient Position: Sitting; Cuff Location: Left Arm; Cuff Size: Standard Weight 277.25 lb Height 69 in Body Mass Index Calculated 40.94 kg/m2 Body Surface Area Calculated 2.37 m2 :32 Temperature 97.6 f Comments: Method: Oral Pulse 76 /min Comments: Pattern: Regular Respiration Rate 20 /min Comments: Pattern: Unlabored BP Systolic 128 mm[Hg] Comments: Patient Position: Sitting; Cuff Location: Left Arm; Cuff Size: Large BP Diastolic 84 mm[Hg] Comments: Patient Position: Sitting; Cuff Location: Left Arm; Cuff Size: Large Weight 293 lb Height 69 in Body Mass Index Calculated 43.27 kg/m2 Body Surface Area Calculated 2.43 m2 :41 Temperature 97.6 f Comments: Method: Oral Pulse 76 /min Comments: Pattern: Regular Respiration Rate 20 /min Comments: Pattern: Unlabored BP Systolic 126 mm[Hg] Comments: Patient Position: Sitting; Cuff Location: Left Arm; Cuff Size: Standard BP Diastolic 78 mm[Hg] Comments: Patient Position: Sitting; Cuff Location: Left Arm; Cuff Size: Standard Weight 287 lb Height 69 in Body Mass Index Calculated 42.38 kg/m2 Body Surface Area Calculated 2.41 m2 :18 Comments: wt taken w shoes Temperature 97.1 f Comments: Method: Temporal Pulse 78 /min Comments: Pattern: Regular Respiration Rate 16 /min Comments: Pattern: Unlabored O2 SAT 97 % Comments: Room air BP Systolic 130 mm[Hg] Comments: Patient Position: Sitting; Cuff Location: Left Arm; Cuff Size: Standard BP Diastolic 76 mm[Hg] Comments: Patient Position: Sitting; Cuff Location: Left Arm; Cuff Size: Standard Weight 287 lb Height 69 in Body Mass Index Calculated 42.38 kg/m2 Body Surface Area Calculated 2.41 m2 :42 BP Systolic 136 mm[Hg] Comments: Patient Position: Sitting BP Diastolic 88 mm[Hg] Comments: Patient Position: Sitting :25 Temperature 97.8 f Comments: Method: Temporal Pulse 72 /min Comments: Pattern: Regular Respiration Rate 16 /min Comments: Pattern: Unlabored O2 SAT 98 % Comments: Room air BP Systolic 138 mm[Hg] Comments: Patient Position: Sitting; Cuff Location: Left Arm; Cuff Size: Standard BP Diastolic 90 mm[Hg] Comments: Patient Position: Sitting; Cuff Location: Left Arm; Cuff Size: Standard Weight 286 lb Height 69 in Body Mass Index Calculated 42.23 kg/m2 Body Surface Area Calculated 2.4 m2 :36 Temperature 97.6 f Comments: Method: Oral Pulse 70 /min Comments: Pattern: Regular Respiration Rate 18 /min Comments: Pattern: Unlabored BP Systolic 160 mm[Hg] Comments: Patient Position: Sitting; Cuff Location: Left Arm; Cuff Size: Standard BP Diastolic 100 mm[Hg] Comments: Patient Position: Sitting; Cuff Location: Left Arm; Cuff Size: Standard Weight 290 lb Height 69 in Body Mass Index Calculated 42.83 kg/m2 Body Surface Area Calculated 2.42 m2 :46 Temperature 97 f Comments: Method: Oral Pulse 78 /min Comments: Pattern: Regular Respiration Rate 20 /min Comments: Pattern: Unlabored O2 SAT 97 % Comments: Room air BP Systolic 142 mm[Hg] Comments: Patient Position: Sitting; Cuff Location: Left Arm; Cuff Size: Large BP Diastolic 90 mm[Hg] Comments: Patient Position: Sitting; Cuff Location: Left Arm; Cuff Size: Large Weight 289 lb Height 69 in Body Mass Index Calculated 42.68 kg/m2 Body Surface Area Calculated 2.42 m2 :59 Temperature 97 f Comments: Method: Temporal Pulse 82 /min Comments: Pattern: Regular Respiration Rate 16 /min Comments: Pattern: Unlabored O2 SAT 96 % Comments: Room air BP Systolic 122 mm[Hg] Comments: Patient Position: Sitting; Cuff Location: Left Arm; Cuff Size: Standard BP Diastolic 80 mm[Hg] Comments: Patient Position: Sitting; Cuff Location: Left Arm; Cuff Size: Standard Weight 287.5 lb Height 69 in Body Mass Index Calculated 42.46 kg/m2 Body Surface Area Calculated 2.41 m2 :33 Temperature 97.2 f Comments: Method: Oral Pulse 84 /min Comments: Pattern: Regular Respiration Rate 18 /min Comments: Pattern: Unlabored O2 SAT 97 % Comments: Room air BP Systolic 128 mm[Hg] Comments: Patient Position: Sitting; Cuff Location: Left Arm; Cuff Size: Standard BP Diastolic 78 mm[Hg] Comments: Patient Position: Sitting; Cuff Location: Left Arm; Cuff Size: Standard Weight 286.5 lb Height 69 in Body Mass Index Calculated 42.31 kg/m2 Body Surface Area Calculated 2.41 m2 :21 Temperature 97.3 f Comments: Method: Oral Pulse 72 /min Comments: Pattern: Regular Respiration Rate 16 /min Comments: Pattern: Unlabored BP Systolic 128 mm[Hg] Comments: Patient Position: Sitting; Cuff Location: Left Arm; Cuff Size: Standard BP Diastolic 74 mm[Hg] Comments: Patient Position: Sitting; Cuff Location: Left Arm; Cuff Size: Standard Weight 287 lb Height 69 in Body Mass Index Calculated 42.38 kg/m2 Body Surface Area Calculated 2.41 m2 :26 Temperature 97.5 f Comments: Method: Oral Pulse 78 /min Comments: Pattern: Regular Respiration Rate 20 /min Comments: Pattern: Unlabored BP Systolic 126 mm[Hg] Comments: Patient Position: Sitting; Cuff Location: Left Arm; Cuff Size: Standard BP Diastolic 90 mm[Hg] Comments: Patient Position: Sitting; Cuff Location: Left Arm; Cuff Size: Standard Weight 287 lb Height 69 in Body Mass Index Calculated 42.38 kg/m2 Body Surface Area Calculated 2.41 m2 :36 Temperature 97.8 f Comments: Method: Oral Pulse 74 /min Comments: Pattern: Regular Respiration Rate 20 /min Comments: Pattern: Unlabored BP Systolic 142 mm[Hg] Comments: Patient Position: Sitting; Cuff Location: Left Arm; Cuff Size: Standard BP Diastolic 86 mm[Hg] Comments: Patient Position: Sitting; Cuff Location: Left Arm; Cuff Size: Standard Weight 284 lb Height 69 in Body Mass Index Calculated 41.94 kg/m2 Body Surface Area Calculated 2.4 m2 :07 Temperature 97.8 f Comments: Method: Oral Pulse 74 /min Comments: Pattern: Regular Respiration Rate 20 /min Comments: Pattern: Unlabored BP Systolic 134 mm[Hg] Comments: Patient Position: Sitting; Cuff Location: Left Arm; Cuff Size: Standard BP Diastolic 84 mm[Hg] Comments: Patient Position: Sitting; Cuff Location: Left Arm; Cuff Size: Standard Weight 284 lb Height 69 in Body Mass Index Calculated 41.94 kg/m2 Body Surface Area Calculated 2.4 m2 :34 Temperature 97.6 f Comments: Method: Oral Pulse 72 /min Comments: Pattern: Regular Respiration Rate 20 /min Comments: Pattern: Unlabored BP Systolic 126 mm[Hg] Comments: Patient Position: Sitting; Cuff Location: Left Arm; Cuff Size: Large BP Diastolic 84 mm[Hg] Comments: Patient Position: Sitting; Cuff Location: Left Arm; Cuff Size: Large Weight 285 lb Height 69 in Body Mass Index Calculated 42.09 kg/m2 Body Surface Area Calculated 2.4 m2 :09 Temperature 97.6 f Comments: Method: Oral Pulse 74 /min Comments: Pattern: Regular Respiration Rate 18 /min Comments: Pattern: Unlabored BP Systolic 128 mm[Hg] Comments: Patient Position: Sitting; Cuff Location: Left Arm; Cuff Size: Standard BP Diastolic 84 mm[Hg] Comments: Patient Position: Sitting; Cuff Location: Left Arm; Cuff Size: Standard Weight 265 lb Height 60 in Body Mass Index Calculated 51.75 kg/m2 Body Surface Area Calculated 2.1 m2 :45 Temperature 98 f Comments: Method: Oral Pulse 70 /min Comments: Pattern: Regular Respiration Rate 20 /min Comments: Pattern: Unlabored BP Systolic 134 mm[Hg] Comments: Patient Position: Sitting; Cuff Location: Left Arm; Cuff Size: Standard BP Diastolic 84 mm[Hg] Comments: Patient Position: Sitting; Cuff Location: Left Arm; Cuff Size: Standard Weight 264 lb Height 60 in Body Mass Index Calculated 51.56 kg/m2 Body Surface Area Calculated 2.1 m2 :11 Pulse 70 /min Comments: Pattern: Regular Respiration Rate 18 /min Comments: Pattern: Unlabored Weight 264 lb Height 60 in Body Mass Index Calculated 51.56 kg/m2 Body Surface Area Calculated 2.1 m2 :25 Temperature 97.6 f Comments: Method: Oral Pulse 72 /min Comments: Pattern: Regular Respiration Rate 20 /min Comments: Pattern: Unlabored BP Systolic 132 mm[Hg] Comments: Patient Position: Sitting; Cuff Location: Left Arm; Cuff Size: Standard BP Diastolic 94 mm[Hg] Comments: Patient Position: Sitting; Cuff Location: Left Arm; Cuff Size: Standard Weight 264 lb Height 60 in Body Mass Index Calculated 51.56 kg/m2 Body Surface Area Calculated 2.1 m2 :41 Temperature 97.9 f Comments: Method: Oral Pulse 76 /min Comments: Pattern: Regular Respiration Rate 20 /min Comments: Pattern: Unlabored BP Systolic 124 mm[Hg] Comments: Patient Position: Sitting; Cuff Location: Left Arm; Cuff Size: Standard BP Diastolic 84 mm[Hg] Comments: Patient Position: Sitting; Cuff Location: Left Arm; Cuff Size: Standard Weight 260 lb Height 69 in Body Mass Index Calculated 38.39 kg/m2 Body Surface Area Calculated 2.31 m2 :27 Temperature 97.9 f Comments: Method: Oral Pulse 68 /min Comments: Pattern: Regular Respiration Rate 16 /min Comments: Pattern: Unlabored BP Systolic 118 mm[Hg] Comments: Patient Position: Sitting; Cuff Location: Left Arm; Cuff Size: Standard BP Diastolic 76 mm[Hg] Comments: Patient Position: Sitting; Cuff Location: Left Arm; Cuff Size: Standard Weight 258.4375 lb :04 Weight 258.4375 lb :07 Temperature 97.6 f Comments: Method: Oral Pulse 64 /min Comments: Pattern: Regular Respiration Rate 18 /min Comments: Pattern: Unlabored BP Systolic 134 mm[Hg] Comments: Patient Position: Sitting; Cuff Location: Left Arm; Cuff Size: Standard BP Diastolic 84 mm[Hg] Comments: Patient Position: Sitting; Cuff Location: Left Arm; Cuff Size: Standard Weight 253 lb Height 69 in Body Mass Index Calculated 37.36 kg/m2 Body Surface Area Calculated 2.28 m2 :36 Temperature 97.6 f Comments: Method: Oral Pulse 82 /min Comments: Pattern: Regular Respiration Rate 18 /min Comments: Pattern: Unlabored BP Systolic 138 mm[Hg] Comments: Patient Position: Sitting; Cuff Location: Left Arm; Cuff Size: Standard BP Diastolic 82 mm[Hg] Comments: Patient Position: Sitting; Cuff Location: Left Arm; Cuff Size: Standard Weight 258 lb Height 69 in Body Mass Index Calculated 38.1 kg/m2 Body Surface Area Calculated 2.3 m2 :25 Temperature 97.6 f Comments: Method: Oral Pulse 76 /min Comments: Pattern: Regular Respiration Rate 18 /min Comments: Pattern: Unlabored BP Systolic 134 mm[Hg] Comments: Patient Position: Sitting; Cuff Location: Left Arm; Cuff Size: Standard BP Diastolic 84 mm[Hg] Comments: Patient Position: Sitting; Cuff Location: Left Arm; Cuff Size: Standard Weight 258 lb Height 69 in Body Mass Index Calculated 38.1 kg/m2 Body Surface Area Calculated 2.3 m2 :54 Temperature 98.2 f Comments: Method: Oral Pulse 68 /min Comments: Pattern: Regular Respiration Rate 20 /min Comments: Pattern: Unlabored BP Systolic 140 mm[Hg] Comments: Patient Position: Sitting; Cuff Location: Left Arm; Cuff Size: Standard BP Diastolic 90 mm[Hg] Comments: Patient Position: Sitting; Cuff Location: Left Arm; Cuff Size: Standard Weight 262 lb Height 69 in Body Mass Index Calculated 38.69 kg/m2 Body Surface Area Calculated 2.32 m2 :25 Temperature 97.9 f Comments: Method: Oral Pulse 76 /min Comments: Pattern: Regular Respiration Rate 18 /min Comments: Pattern: Unlabored BP Systolic 122 mm[Hg] Comments: Patient Position: Sitting; Cuff Location: Left Arm; Cuff Size: Standard BP Diastolic 82 mm[Hg] Comments: Patient Position: Sitting; Cuff Location: Left Arm; Cuff Size: Standard Weight 262 lb Height 69 in Body Mass Index Calculated 38.69 kg/m2 Body Surface Area Calculated 2.32 m2 :13 Temperature 97.2 f Comments: Method: Oral Pulse 80 /min Comments: Pattern: Regular Respiration Rate 17 /min Comments: Pattern: Unlabored BP Systolic 136 mm[Hg] Comments: Patient Position: Sitting; Cuff Location: Left Arm; Cuff Size: Standard BP Diastolic 78 mm[Hg] Comments: Patient Position: Sitting; Cuff Location: Left Arm; Cuff Size: Standard Weight 262.3125 lb :26 Comments: waist circumferance much larger than hip. Temperature 98.4 f Comments: Method: Oral Pulse 72 /min Comments: Pattern: Regular Respiration Rate 16 /min Comments: Pattern: Unlabored BP Systolic 132 mm[Hg] Comments: Patient Position: Sitting; Cuff Location: Left Arm; Cuff Size: Standard BP Diastolic 80 mm[Hg] Comments: Patient Position: Sitting; Cuff Location: Left Arm; Cuff Size: Standard Weight 261.375 lb :57 Temperature 98 f Comments: Method: Oral Pulse 78 /min Comments: Pattern: Regular Respiration Rate 17 /min Comments: Pattern: Unlabored BP Systolic 138 mm[Hg] Comments: Patient Position: Sitting; Cuff Location: Left Arm; Cuff Size: Standard BP Diastolic 92 mm[Hg] Comments: Patient Position: Sitting; Cuff Location: Left Arm; Cuff Size: Standard Weight 259.375 lb Height 69 in Body Mass Index Calculated 38.3 kg/m2 Body Surface Area Calculated 2.31 m2 :42 Pulse 76 /min Comments: Pattern: Regular Respiration Rate 20 /min Comments: Pattern: Unlabored BP Systolic 130 mm[Hg] Comments: Patient Position: Sitting; Cuff Location: Left Arm; Cuff Size: Large BP Diastolic 90 mm[Hg] Comments: Patient Position: Sitting; Cuff Location: Left Arm; Cuff Size: Large Weight 266 lb :07 Pulse 70 /min Comments: Pattern: Regular Respiration Rate 18 /min Comments: Pattern: Unlabored BP Systolic 126 mm[Hg] Comments: Patient Position: Sitting; Cuff Location: Left Arm; Cuff Size: Standard BP Diastolic 90 mm[Hg] Comments: Patient Position: Sitting; Cuff Location: Left Arm; Cuff Size: Standard Weight 0 lb Height 0 in Head Circumference 0.00 cm :01 Temperature 99.4 f Comments: Method: Oral Pulse 72 /min Comments: Pattern: Regular Respiration Rate 18 /min Comments: Pattern: Unlabored BP Systolic 124 mm[Hg] Comments: Patient Position: Sitting; Cuff Location: Right Arm; Cuff Size: Large BP Diastolic 78 mm[Hg] Comments: Patient Position: Sitting; Cuff Location: Right Arm; Cuff Size: Large Weight 0 lb Height 0 in Head Circumference 0.00 cm :01 Pulse 72 /min Comments: Pattern: Regular Respiration Rate 18 /min Comments: Pattern: Unlabored BP Systolic 120 mm[Hg] Comments: Patient Position: Sitting; Cuff Location: Left Arm; Cuff Size: Large BP Diastolic 82 mm[Hg] Comments: Patient Position: Sitting; Cuff Location: Left Arm; Cuff Size: Large Weight 269 lb Height 69 in Body Mass Index Calculated 39.72 kg/m2 Body Surface Area Calculated 2.34 m2 Head Circumference 0.00 cm :38 Pulse 74 /min Comments: Pattern: Regular Respiration Rate 18 /min Comments: Pattern: Unlabored BP Systolic 124 mm[Hg] Comments: Patient Position: Sitting; Cuff Location: Left Arm; Cuff Size: Large BP Diastolic 84 mm[Hg] Comments: Patient Position: Sitting; Cuff Location: Left Arm; Cuff Size: Large Weight 275 lb Height 0 in Head Circumference 0.00 cm :36 Temperature 97.6 f Comments: Method: Oral Pulse 78 /min Comments: Pattern: Regular Respiration Rate 16 /min Comments: Pattern: Undefined BP Systolic 118 mm[Hg] Comments: Patient Position: Undefined; Cuff Location: Undefined; Cuff Size: Undefined BP Diastolic 80 mm[Hg] Comments: Patient Position: Undefined; Cuff Location: Undefined; Cuff Size: Undefined Weight 266 lb Height 69 in Body Mass Index Calculated 39.28 kg/m2 Body Surface Area Calculated 2.33 m2 Head Circumference 0.00 cm :06 Comments: waist is 54 hip 48in Temperature 97.6 f Comments: Method: Oral Pulse 78 /min Comments: Pattern: Regular Respiration Rate 16 /min Comments: Pattern: Unlabored BP Systolic 118 mm[Hg] Comments: Patient Position: Sitting; Cuff Location: Left Arm; Cuff Size: Large BP Diastolic 80 mm[Hg] Comments: Patient Position: Sitting; Cuff Location: Left Arm; Cuff Size: Large Weight 266 lb Height 0 in Head Circumference 0.00 cm :08 Temperature 97.8 f Comments: Method: Oral Pulse 68 /min Comments: Pattern: Regular Respiration Rate 16 /min Comments: Pattern: Unlabored BP Systolic 120 mm[Hg] Comments: Patient Position: Sitting; Cuff Location: Left Arm; Cuff Size: Standard BP Diastolic 78 mm[Hg] Comments: Patient Position: Sitting; Cuff Location: Left Arm; Cuff Size: Standard Weight 0 lb Height 0 in Head Circumference 0.00 cm :39 Temperature 97.8 f Comments: Method: Oral Pulse 64 /min Comments: Pattern: Regular Respiration Rate 16 /min Comments: Pattern: Unlabored BP Systolic 120 mm[Hg] Comments: Patient Position: Sitting; Cuff Location: Left Arm; Cuff Size: Standard BP Diastolic 80 mm[Hg] Comments: Patient Position: Sitting; Cuff Location: Left Arm; Cuff Size: Standard Weight 0 lb Height 0 in Head Circumference 0.00 cm :23 Temperature 98.2 f Comments: Method: Oral Pulse 74 /min Comments: Pattern: Regular Respiration Rate 18 /min Comments: Pattern: Unlabored BP Systolic 122 mm[Hg] Comments: Patient Position: Sitting; Cuff Location: Left Arm; Cuff Size: Standard BP Diastolic 78 mm[Hg] Comments: Patient Position: Sitting; Cuff Location: Left Arm; Cuff Size: Standard Weight 262 lb Height 69 in Body Mass Index Calculated 38.69 kg/m2 Body Surface Area Calculated 2.32 m2 Head Circumference 0.00 cm :48 Temperature 98.5 f Comments: Method: Oral Pulse 72 /min Comments: Pattern: Regular Respiration Rate 16 /min Comments: Pattern: Undefined BP Systolic 135 mm[Hg] Comments: Patient Position: Sitting; Cuff Location: Undefined; Cuff Size: Undefined BP Diastolic 82 mm[Hg] Comments: Patient Position: Sitting; Cuff Location: Undefined; Cuff Size: Undefined Weight 0 lb Height 0 in Head Circumference 0.00 cm Results Date Description Value Details :54 ANTINUCLEAR ANTIBODIES DIRECT Comments: [facility] (refer to report for specific site)refer to report for address and phone number DEMETRIA-DIRECT Negative (Normal) Comments: Performed at: [address] [id number] Director: Fidel Gamble PhD, Phone: [phone] :54 CBC W/Diff, Automated Comments: [facility] [id number] [place], [place], [id number] Absolute Lymph 1.81 {X10_3/ul} (Normal) Range: 0.83-4.51 Absolute Neut 6.9 {X10_3/uL} (Normal) Range: 2.0-7.7 IM GRAN % 0.300 % (Normal) Range: 0.0-0.9 Comments: IG% - Immature Granulocytes (promyelocytes, myelocytes andmetamyelocytes) > 1% indicates that a LEFT SHIFT is Present. BASO% 0.4 % (Normal) Range: 0-1 EO% 1.6 % (Normal) Range: 0-5 MONO% 10.2 % (Abnormal) Range: 0-10 LY% 18.2 % (Abnormal) Range: 19-41 NEUT% 69.3 % (Normal) Range: 47-70 MPV 10.6 fL (Normal) Range: 6.2-12.0 PLT 243 K/mm3 (Normal) Range: 150-450 RDW SD 42.1 fL (Normal) Range: 35.1-43.9 RDW CV 12.9 % (Normal) Range: 11.6-14.6 MCHC 33.5 {g/gl} (Normal) Range: 32-36 MCH 29.9 pg (Normal) Range: 27.0-32.0 MCV 89.3 fL (Normal) Range: 80-94 HCT 43.3 % (Normal) Range: 40-54 HGB 14.5 g/dL (Normal) Range: 13.0-16.5 RBC 4.85 {M/mm3} (Normal) Range: 4.6-6.2 WBC 10.0 K/mm3 (Normal) Range: 4.4-11.0 69-Xuq-59567:54 Comprehensive Metabolic Profil Comments: [facility] [address] [place], [place], [id number] GAP 7 (Normal) Range: 5-15 CO2 27.0 mmol/L (Normal) Range: 21.0-32.0 CL 108 mmol/L (Abnormal) Range: 98-107 K 4.5 mmol/L (Normal) Range: 3.5-5.1 NA 142 mmol/L (Normal) Range: 136-145 T BILI 0.40 mg/dL (Normal) Range: 0.20-1.00 ALT 30 U/L (Normal) Range: 16-61 ALK P 112 U/L (Normal) Range: 45-117 AST 14 U/L (Abnormal) Range: 15-37 CA 9.0 mg/dL (Normal) Range: 8.5-10.1 A/G 0.9 {RATIO} (Normal) Range: 0.9-2.4 GLOB 4.2 g/dL (Normal) Range: 2.2-4.2 ALB 3.7 g/dL (Normal) Range: 3.2-5.0 T PROT 7.9 g/dL (Normal) Range: 6.4-8.2 BUN/CRE 17.1 {RATIO} (Normal) Range: 10-20 EST GFR - AA 94 mL/min (Normal) Comments: GFR Calc EST GFR 77 mL/min (Normal) Comments: Non- GFR Calc CREAT,SERUM 1.05 mg/dL (Normal) Range: 0.70-1.30 Comments: The validity of the calculated GFR AND GFRAA in patients over70 years has not been determined. Clinical correlation isessential. BUN 18 mg/dL (Normal) Range: 7-18 GLU 87 mg/dL (Normal) Range: 74-106 Comments: Please note revised GLUCOSE reference range hdlaiuesc62/02/2018. 16-Osk-94985:54 CRP Comments: [facility] [address] [place], [place], [address] C-REACTIVE PROT 8.46 mg/L (Abnormal) Range: 0.0-3.0 Comments: C-Reactive Protein (CRP) provides useful information for thediagnosis, therapy and monitoring of inflammatory processesand associated diseases. For the evaluation of Relative Riskfor Cardiovascular Dise ase, a High Sensitivity CRP (HSCRP)should be ordered. :54 Erythrocyte Sed Rate Comments: [facility] [address] [place], [place], [address] SED RATE 28 mm/h (Abnormal) Range: 0-20 :54 HLA B27 Negative (Normal) Comments: [facility] (refer to report for specific site)refer to report for address and phone number Comments: HLA-B*27 YrhzcyveN93 allele interpretation for all loci based on IMGT/HLAdatabase version 3.27This test was developed and its performance characteristicsdetermined by [employer]. It has not been cleared o r approvedby the Food and Drug Administration.[facility] CLIA ID Number [id number] test was performed using PCR (Polymerase ChainReaction)/SSOP (Sequence Specific Oligonucleotide Probes)technique. SBT (Sequence Based Typing) and/or SSP(Sequence Specific Primers) may be used as supplementalmethods when necessary. Please contact [facility] CustomerService at if you have any questions. Gayleo r of [facility] Laboratory Dr Hermes Blair, PhDPerformed at: - [address] [id number] Director: Jacinto Pavon MD, Phone: [phone] at: 2 - [address] [id number] Director: Hermes Blair PhD, Phone: [phone] :54 Lyme Antibodies,W Blot Comments: [facility] (refer to report for specific site)refer to report for address and phone number LYME IgM INTERP Negative (Normal) Comments: Note: An equivocal or positive EIA result followed by anegative Western Blot result is considered NEGATIVE. Anequivocal or positive EIA result followed by a positiveWestern Blot is considered POSITIVE b y the CDC.Positive: 2 of the following bands: 23,39 or 41Negative: No bands or banding patterns which do not meetpositive criteria.Criteria for positivity are those recommended byCDC/ASTPHLD. p23=Osp C, o22=eaxnudvrlMttp:Sera from individuals with the following may cross reactin the Lyme Western Blot assays: other spirochetal diseases(periodontal disease, leptospirosis, relapsing fever, yaws,and pinta ); connective autoimmune (Rheumatoid Arthritis andSystemic Lupus Erythematosus and also individuals withAntinuclear Antibody); other infections (Ward MountainSpotted Fever; Ronal-Capone Virus, and Cytomegalovirus). P23 Ab Absent (Normal) P39 Ab Absent (Normal) P41 Ab Absent (Normal) LYME IgG INTERP Negative (Normal) Comments: Positive: 5 of the following Borrelia-specific bands: 18,23,28,30,39,41,45,58, 66, and 93. N egative: No bands or banding patterns which do not meet positive criteria. P18 Ab Absent (Normal) P23 Ab Present (Abnormal) P28 Ab Absent (Normal) P30 Ab Absent (Normal) P39 Ab Absent (Normal) P41 Ab Absent (Normal) P45 Ab Absent (Normal) P58 Ab Absent (Normal) P66 Ab Absent (Normal) P93 Ab Absent (Normal) 44-Tmn-26342:54 Rheumatoid Factor Comments: [facility] [address] [place], [address] RHEUMATOID FAC < 10.0 {IU/mL} (Normal) :54 Uric Acid Comments: [facility] [address] [place], [address] URIC 6.1 mg/dL (Normal) Range: 3.5-7.2 Comments: The drugs N-Acetylcysteine and Metamizole may falselydepress this assay. :06 HgA1C , Office (36862) HgA1C , Office 5.6 % (Normal) Range: 4.6 - 7.1 05-Usa-300180:03 HgA1C , Office (50452) HgA1C , Office 5.7 % (Normal) Range: 4.6 - 7.1 :16 HEPATIC FUNCTION PANEL Comments: PATIENT WAS FASTINGPERFORMED BY: Vidcaster[address] [id number] BY: VidcasterVirtua Our Lady of Lourdes Medical CenterZevjbx2986 [facility] [id number] (37429) ALT (SGPT) 24 [iU]/L (Normal) Range: 0-44 AST (SGOT) 21 [iU]/L (Normal) Range: 0-40 Alkaline Phosphatase, S 98 [iU]/L (Normal) Range: 39-117 Bilirubin, Direct 0.09 mg/dL (Normal) Range: 0.00-0.40 Bilirubin, Total 0.3 mg/dL (Normal) Range: 0.0-1.2 Protein, Total, Serum 7.6 g/dL (Normal) Range: 6.0-8.5 :16 LIPOPROTEIN, BLD, BY NMR Comments: PATIENT WAS FASTINGPERFORMED BY: Vidcaster[address] [id number] BY: VidcasterVirtua Our Lady of Lourdes Medical CenterHpbsqu8223 [facility] [id number]; FU 3- (20513) LP-IR Score 65 (Abnormal) Comments: INSULIN RESISTANCE MARKER <--Insulin Sensitive Insulin Resistant--> Percentile in Reference PopulationInsulin Resistance ScoreLP-IR Score Low 25th 50th 75th High <27 27 45 63 >63LP-IR Score is inaccurate if patient is non-fasting. .The LP-IR score is a laboratory developed i [facility] that has beenassociated with insulin resistance and diabetes risk and should beused as one component of a physician's clinical assessment. TheLP-IR score listed above has not been cleared by the US Food andDrug Administration. LDL Size 21.6 nm (Normal) Comments: INTERPRETATIVE INFORMATION PARTICLE CONCENTRATION AND SIZE <--Lower CVD Risk Highe r CVD Risk--> LDL AND HDL PARTICLES Percentile in Reference Population HDL-P (total) High 75th 50th 25th Low >34.9 34.9 30.5 26.7 <26.7 . Small LDL-P Low 25th 50th 75th High <117 117 527 839 >839 . LDL Size <-Large (Pattern A)-> <-Small (Pattern B)-> 23.0 20.6 20.5 19.0 Small LDL-P and LDL Size are associated with CVD risk, but not afterLDL-P is taken into account. .These assays were developed and their performance characteristicsdetermined by [employer]. These assays have not been cleared by [place] Food and Drug Administration. The clinical utility of theselaboratory values have not been fully established. Small LDL-P 342 nmol/L (Normal) HDL-P (Total) 31.9 umol/L (Normal) Cholesterol, Total 210 mg/dL (Abnormal) Range: 100-199 Triglycerides 129 mg/dL (Normal) Range: 0-149 HDL-C 46 mg/dL (Normal) LDL-C 138 mg/dL (Abnormal) Range: 0-99 Comments: . Optimal < 100 Above optimal 100 - 129 Borderline 1 30 - 159 High 160 - 189 Very high > 189 .LDL-C is inaccurate if patient is non-fasting. LDL-P 1396 nmol/L (Abnormal) Comments: Low < 1000 Moderate 1000 - 1299 Borderline-High 1300 - 1599 High 1600 - 2000 Very High > 28-Jun-20179:16 Renal function Panel Comments: PATIENT WAS FASTINGPERFORMED BY: [facility] Wblkbhasty7822 [facility] [id number] BY: [facility] Qcljsh5643 [facility] [id number] (76820) Albumin, Serum 4.5 g/dL (Normal) Range: 3.5-5.5 Phosphorus, Serum 3.7 mg/dL (Normal) Range: 2.5-4.5 Calcium, Serum 9.6 mg/dL (Normal) Range: 8.7-10.2 Carbon Dioxide, Total 23 mmol/L (Normal) Range: 18-29 Chloride, Serum 100 mmol/L (Normal) Range: 96-106 Potassium, Serum 4.9 mmol/L (Normal) Range: 3.5-5.2 Sodium, Serum 141 mmol/L (Normal) Range: 134-144 BUN/Creatinine Ratio 15 (Normal) Range: 9-20 eGFR If Africn Am 73 mL/min/1.73 (Normal) eGFR If NonAfricn Am 63 mL/min/1.73 (Normal) Creatinine, Serum 1.26 mg/dL (Normal) Range: 0.76-1.27 BUN 19 mg/dL (Normal) Range: 6-24 Glucose, Serum 94 mg/dL (Normal) Range: 65-99 23-Gvc-902044:52 MICROALBUMIN: CREATININE RATIO Comments: PATIENT NOT FASTINGPERFORMED BY: SHADO6[address] [facility] [id number] (80324) AND (03482) Microalb/Creat Ratio <2.6 {mg/g_creat} (Normal) Range: 0.0-30.0 Microalbumin, Urine <3.0 ug/mL (Normal) Creatinine, Urine 117.3 mg/dL (Normal) 37-Bdo-942735:52 URINALYSIS (33055) Comments: PATIENT NOT FASTINGPERFORMED BY: SHADO6370 [facility] [id number] Microscopic Examination MICNIP (Normal) Comments: Microscopic not indicated and not performed. Nitrite, Urine Negative (Normal) Urobilinogen,Semi-Qn 0.2 mg/dL (Normal) Range: 0.2-1.0 Bilirubin Negative (Normal) Occult Blood Negative (Normal) Ketones Negative (Normal) Glucose Negative (Normal) Protein Negative (Normal) WBC Esterase Negative (Normal) Appearance Clear (Normal) Urine-Color Yellow (Normal) pH 5.0 (Normal) Range: 5.0-7.5 Specific Azle 1.022 (Normal) Range: 1.005-1.030 16-Aab-379831:52 Metabolic Panel, Comprehensive Comments: PATIENT NOT FASTINGPERFORMED BY: V[facility]caster Qwybzo5661 [address] [facility] [id number] (03347) ALT (SGPT) 21 [iU]/L (Normal) Range: 0-44 AST (SGOT) 16 [iU]/L (Normal) Range: 0-40 Alkaline Phosphatase, S 93 [iU]/L (Normal) Range: 39-117 Bilirubin, Total 0.3 mg/dL (Normal) Range: 0.0-1.2 A/G Ratio 1.5 (Normal) Range: 1.2-2.2 Globulin, Total 2.8 g/dL (Normal) Range: 1.5-4.5 Albumin, Serum 4.3 g/dL (Normal) Range: 3.5-5.5 Protein, Total, Serum 7.1 g/dL (Normal) Range: 6.0-8.5 Calcium, Serum 9.7 mg/dL (Normal) Range: 8.7-10.2 Carbon Dioxide, Total 25 mmol/L (Normal) Range: 18-29 Chloride, Serum 102 mmol/L (Normal) Range: 96-106 Potassium, Serum 4.6 mmol/L (Normal) Range: 3.5-5.2 Sodium, Serum 143 mmol/L (Normal) Range: 134-144 BUN/Creatinine Ratio 19 (Normal) Range: 9-20 eGFR If Africn Am 93 mL/min/1.73 (Normal) eGFR If NonAfricn Am 81 mL/min/1.73 (Normal) Creatinine, Serum 1.03 mg/dL (Normal) Range: 0.76-1.27 BUN 20 mg/dL (Normal) Range: 6-24 Glucose, Serum 92 mg/dL (Normal) Range: 65-99 53-Ykm-918458:52 CBC WITH MANUAL DIFF Comments: PATIENT NOT FASTINGPERFORMED BY: VidcasterNor-Lea General HospitalRncjnn7007 [facility] [id number] Information: NURSE DRAW (13514) Immature Grans (Abs) 0.0 {x10E3/uL} (Normal) Range: 0.0-0.1 Immature Granulocytes 0 % (Normal) Baso (Absolute) 0.0 {x10E3/uL} (Normal) Range: 0.0-0.2 Eos (Absolute) 0.2 {x10E3/uL} (Normal) Range: 0.0-0.4 Monocytes(Absolute) 0.9 {x10E3/uL} (Normal) Range: 0.1-0.9 Lymphs (Absolute) 2.1 {x10E3/uL} (Normal) Range: 0.7-3.1 Neutrophils (Absolute) 6.1 {x10E3/uL} (Normal) Range: 1.4-7.0 Basos 0 % (Normal) Eos 2 % (Normal) Monocytes 10 % (Normal) Lymphs 22 % (Normal) Neutrophils 66 % (Normal) Platelets 232 {x10E3/uL} (Normal) Range: 150-379 RDW 13.5 % (Normal) Range: 12.3-15.4 MCHC 33.8 g/dL (Normal) Range: 31.5-35.7 MCH 29.5 pg (Normal) Range: 26.6-33.0 MCV 87 fL (Normal) Range: 79-97 Hematocrit 43.5 % (Normal) Range: 37.5-51.0 Hemoglobin 14.7 g/dL (Normal) Range: 12.6-17.7 Comments: Effective March 20, 2017 the reference interval for Hemoglobin MALES only will be changing to: Males 13-15 years: 12.6 - 17.7 Males >15 years: 13.0 - 17.7 RBC 4.98 {x10E6/uL} (Normal) Range: 4.14-5.80 WBC 9.3 {x10E3/uL} (Normal) Range: 3.4-10.8 08-Rfm-585855:49 Microscopic Examination Comments: PATIENT WAS FASTINGPERFORMED BY: [facility] Yzpfiw8956 [facility] [id number] Bacteria Few (Normal) Mucus Threads Present (Normal) Epithelial Cells (non renal) 0-10 {/hpf} (Normal) Range: 0 - 10 RBC 0-2 {/hpf} (Normal) Range: 0 - 2 WBC 0-5 {/hpf} (Normal) Range: 0 - 5 64-Sln-840307:49 URINALYSIS, W/ MICRO (66592) Comments: PATIENT WAS FASTINGPERFORMED BY: VidcasterVirtua Our Lady of Lourdes Medical CenterRrhpwb7280 [facility] [id number] Microscopic Examination See below: (Normal) Comments: Microscopic was indicated and was performed. Microscopic Examination MICRON (Normal) Comments: Microscopic follows if indicated. Nitrite, Urine Negative (Normal) Urobilinogen,Semi-Qn 0.2 mg/dL (Normal) Range: 0.2-1.0 Bilirubin Negative (Normal) Occult Blood Negative (Normal) Ketones Negative (Normal) Glucose Negative (Normal) Protein Negative (Normal) WBC Esterase Negative (Normal) Appearance Clear (Normal) Urine-Color Yellow (Normal) pH 5.5 (Normal) Range: 5.0-7.5 Specific Azle 1.026 (Normal) Range: 1.005-1.030 29-Vir-119873:49 MICROALBUMIN URINE QUANT Comments: PATIENT WAS FASTINGPERFORMED BY: [place]casterJames [place] 1554270 [facility] [id number] (49189) Microalb/Creat Ratio <1.7 {mg/g_creat} (Normal) Range: 0.0-30.0 Creatinine, Urine 178.3 mg/dL (Normal) Microalbumin, Urine <3.0 ug/mL (Normal) 22-Bbg-234998:49 CBC with auto diff (97258) Comments: PATIENT WAS FASTINGPERFORMED BY: VidcasterVirtua Our Lady of Lourdes Medical CenterRyrgxi2337 [facility] [id number] Immature Grans (Abs) 0.0 {x10E3/uL} (Normal) Range: 0.0-0.1 Immature Granulocytes 0 % (Normal) Baso (Absolute) 0.0 {x10E3/uL} (Normal) Range: 0.0-0.2 Eos (Absolute) 0.3 {x10E3/uL} (Normal) Range: 0.0-0.4 Monocytes(Absolute) 1.0 {x10E3/uL} (Abnormal) Range: 0.1-0.9 Lymphs (Absolute) 2.0 {x10E3/uL} (Normal) Range: 0.7-3.1 Neutrophils (Absolute) 5.7 {x10E3/uL} (Normal) Range: 1.4-7.0 Basos 0 % (Normal) Eos 4 % (Normal) Monocytes 11 % (Normal) Lymphs 22 % (Normal) Neutrophils 63 % (Normal) Platelets 217 {x10E3/uL} (Normal) Range: 150-379 RDW 13.5 % (Normal) Range: 12.3-15.4 MCHC 33.9 g/dL (Normal) Range: 31.5-35.7 MCH 29.7 pg (Normal) Range: 26.6-33.0 MCV 88 fL (Normal) Range: 79-97 Hematocrit 43.1 % (Normal) Range: 37.5-51.0 Hemoglobin 14.6 g/dL (Normal) Range: 12.6-17.7 RBC 4.92 {x10E6/uL} (Normal) Range: 4.14-5.80 WBC 9.2 {x10E3/uL} (Normal) Range: 3.4-10.8 06-Dap-524296:49 METABOLIC PANEL, COMPREHENSIVE Comments: now and in three months (approximately); PATIENT WAS FASTINGPERFORMED BY: [facility]6370 [facility] [id number] (28588) ALT (SGPT) 20 [iU]/L (Normal) Range: 0-44 AST (SGOT) 15 [iU]/L (Normal) Range: 0-40 Alkaline Phosphatase, S 93 [iU]/L (Normal) Range: 39-117 Bilirubin, Total 0.3 mg/dL (Normal) Range: 0.0-1.2 A/G Ratio 1.4 (Normal) Range: 1.2-2.2 Globulin, Total 3.1 g/dL (Normal) Range: 1.5-4.5 Albumin, Serum 4.4 g/dL (Normal) Range: 3.5-5.5 Protein, Total, Serum 7.5 g/dL (Normal) Range: 6.0-8.5 Calcium, Serum 9.6 mg/dL (Normal) Range: 8.7-10.2 Carbon Dioxide, Total 24 mmol/L (Normal) Range: 18-29 Chloride, Serum 104 mmol/L (Normal) Range: 96-106 Potassium, Serum 4.9 mmol/L (Normal) Range: 3.5-5.2 Sodium, Serum 144 mmol/L (Normal) Range: 134-144 BUN/Creatinine Ratio 16 (Normal) Range: 9-20 eGFR If Africn Am 81 mL/min/1.73 (Normal) eGFR If NonAfricn Am 70 mL/min/1.73 (Normal) Creatinine, Serum 1.16 mg/dL (Normal) Range: 0.76-1.27 BUN 19 mg/dL (Normal) Range: 6-24 Glucose, Serum 86 mg/dL (Normal) Range: 65-99 :38 HgA1C , Office (76837) HgA1C , Office 5.7 % (Normal) Range: 4.6 - 7.1 :38 Blood Glucose , Office (76294) Blood Glucose , Office 102 (Normal) :45 HgA1C , Office (87539) HgA1C , Office 5.3 % (Normal) Range: 4.6 - 7.1 :57 HEPATITIS C ANTIBODY (60313) Comments: PATIENT WAS FASTINGPERFORMED BY: [employer] [facility] [id number] Hep C Virus Ab 0.1 {s/co_ratio} (Normal) Range: 0.0-0.9 Comments: Negative: < 0.8 Indeterminate: 0.8 - 0.9 Positive: > 0.9 . The CDC recommends that a positive HCV antibody result be followed up with a HCV Nucleic Acid Amplification test (717798). :57 RUBEOLA IgG (05766) Comments: PATIENT WAS FASTINGPERFORMED BY: Vidcaster Qwarof6228 [facility] [id number] Rubeola Ab, IgG 37.1 AU/mL (Normal) Comments: Negative <25.0 Equivocal 25.0 - 29.9 Positive >29.9 Presence of antibodies to Rubeola is presumptive evidence of immunity except when acute infection is suspected. :57 RUBELLA IgG (38011) Comments: PATIENT WAS FASTINGPERFORMED BY: [employer] Ydksmq2628 [facility] [id number] Rubella Antibodies, IgG 16.30 {index} (Normal) Comments: Non-immune <0.90 Equivocal 0.90 - 0.99 Immune >0.99 :57 MUMPS IgG (49980) Comments: PATIENT WAS FASTINGPERFORMED BY: VidcasterVirtua Our Lady of Lourdes Medical CenterEoexuh4979 [facility] [id number] Mumps Abs, IgG 128.0 AU/mL (Normal) Comments: Negative <9.0 Equivocal 9.0 - 10.9 Positive >10.9 A positive result genera lly indicates past exposure to Mumps virus or previous vaccination. :53 MICROALBUMIN: CREATININE Comments: PATIENT WAS FASTINGPERFORMED BY: [address] [id number] BY: VidcasterJames [place] 1554270 [facility] [id number] RATIO (41514) AND (09252) Microalb/Creat Ratio <2.0 {mg/g_creat} (Normal) Range: 0.0-30.0 Microalbumin, Urine <3.0 ug/mL (Normal) Creatinine, Urine 148.5 mg/dL (Normal) :53 CBC with auto diff Comments: PATIENT WAS FASTINGPERFORMED BY: [address] [id number] BY: VidcasterJames [place] 1554270 [facility] [id number] (09106) Immature Grans (Abs) 0.0 {x10E3/uL} (Normal) Range: 0.0-0.1 Immature Granulocytes 0 % (Normal) Baso (Absolute) 0.0 {x10E3/uL} (Normal) Range: 0.0-0.2 Eos (Absolute) 0.4 {x10E3/uL} (Normal) Range: 0.0-0.4 Monocytes(Absolute) 0.8 {x10E3/uL} (Normal) Range: 0.1-0.9 Lymphs (Absolute) 1.7 {x10E3/uL} (Normal) Range: 0.7-3.1 Neutrophils (Absolute) 4.9 {x10E3/uL} (Normal) Range: 1.4-7.0 Basos 0 % (Normal) Eos 5 % (Normal) Monocytes 10 % (Normal) Lymphs 22 % (Normal) Neutrophils 63 % (Normal) Platelets 217 {x10E3/uL} (Normal) Range: 150-379 RDW 13.8 % (Normal) Range: 12.3-15.4 MCHC 33.3 g/dL (Normal) Range: 31.5-35.7 MCH 29.5 pg (Normal) Range: 26.6-33.0 MCV 89 fL (Normal) Range: 79-97 Hematocrit 44.2 % (Normal) Range: 37.5-51.0 Hemoglobin 14.7 g/dL (Normal) Range: 12.6-17.7 RBC 4.99 {x10E6/uL} (Normal) Range: 4.14-5.80 WBC 7.8 {x10E3/uL} (Normal) Range: 3.4-10.8 :53 LIPOPROTEIN, BLD, BY NMR Comments: PATIENT WAS FASTINGPERFORMED BY: BN [facility] Fmhsrpfhrn5326 [facility] [id number] BY: CB [facility] Sswokt0995 [facility] [id number]; fu 4-13 db (57976) LP-IR Score 59 (Abnormal) Comments: INSULIN RESISTANCE MARKER <--Insulin Sensitive Insulin Resistant--> Percentile in Reference PopulationInsulin Resistance ScoreLP-IR Score Low 25th 50th 75th High <27 27 45 63 >63LP-IR Score is inaccurate if patient is non-fasting. .The LP-IR score is a laboratory developed i [facility] that has beenassociated with insulin resistance and diabetes risk and should beused as one component of a physician's clinical assessment. TheLP-IR score listed above has not been cleared by the US Food andDrug Administration. LDL Size 21.7 nm (Normal) Comments: INTERPRETATIVE INFORMATION PARTICLE CONCENTRATION AND SIZE <--Lower CVD Risk Highe r CVD Risk--> LDL AND HDL PARTICLES Percentile in Reference Population HDL-P (total) High 75th 50th 25th Low >34.9 34.9 30.5 26.7 <26.7 . Small LDL-P Low 25th 50th 75th High <117 117 527 839 >839 . LDL Size <-Large (Pattern A)-> <-Small (Pattern B)-> 23.0 20.6 20.5 19.0 Small LDL-P and LDL Size are associated with CVD risk, but not afterLDL-P is taken into account. .These assays were developed and their performance characteristicsdetermined by [employer]. These assays have not been cleared by [place] Food and Drug Administration. The clinical utility of theselaboratory values have not been fully established. Small LDL-P 461 nmol/L (Normal) HDL-P (Total) 31.9 umol/L (Normal) Cholesterol, Total 201 mg/dL (Abnormal) Range: 100-199 Triglycerides 104 mg/dL (Normal) Range: 0-149 HDL-C 46 mg/dL (Normal) LDL-C 134 mg/dL (Abnormal) Range: 0-99 Comments: . Optimal < 100 Above optimal 100 - 129 Borderline 1 30 - 159 High 160 - 189 Very high > 189 .LDL-C is inaccurate if patient is non-fasting. LDL-P 1461 nmol/L (Abnormal) Comments: Low < 1000 Moderate 1000 - 1299 Borderline-High 1300 - 1599 High 1600 - 2000 Very High > 2000 26-Uyc-62830:53 PSA (PROSTATE SPECIFIC Comments: PATIENT WAS FASTINGPERFORMED BY: [facility] Utzqvdiglb8755 [facility] [id number] BY: [facility] Krqtyy8240 [facility] [id number] ANTIGEN) (V76.44) Prostate Specific Ag, 1.0 ng/mL (Normal) Range: 0.0-4.0 Serum Comments: AnyPerkIA methodology. .According to the [place] U[employer] Association, Serum PSA shoulddecrease and remain at undetectable levels after radicalprostatectomy. The AUA defines biochemical recurrence as an initialPSA value 0.2 ng/mL or greater followed by a subsequent confirmatoryPSA value 0.2 ng/mL or greater.Values obtained with d ifferent assay methods or kits cannot be usedinterchangeably. Results cannot be interpreted as absolute evidenceof the presence or absence of malignant disease. :51 CALCIFIDIOL (14240) VIT D 25 Comments: PATIENT WAS FASTINGPERFORMED BY: SHADO6370 [place] [id number] Vitamin D, 25-Hydroxy 32.7 ng/mL (Normal) Range: 30.0-100.0 Comments: Vitamin D deficiency has been defined by the Avenue ofMedicine and an Endocrine Society practice guideline as alevel of serum 25-OH vitamin D less than 20 ng/mL (1,2).The Endocrine Society went on to further define vitamin Dinsufficiency as a level between 21 and 29 ng/mL (2).1. IOM (Avenue of Medicine). 2010. Dietary reference intakes for calcium and D. [place]: The National Academies Press.2. Seymour MF, Amalia VALENTIN, Alice ELIAS, et al. Evaluation, treatment, and prevention of vitamin D deficiency: an Endocrine Society clinical practice guideline. JCEM. 2010; 96(7):1911-30. :51 HGB A1C (52118) Comments: PATIENT WAS FASTINGPERFORMED BY: [id number] [address] [id number] Hemoglobin A1c 5.9 % (Abnormal) Range: 4.8-5.6 Comments: . Pre-diabetes: 5.7 - 6.4 Diabetes: >6.4 Glycemic control for adults with diabetes: <7.0 :59 Microscopic Examination Comments: PATIENT WAS FASTINGPERFORMED BY: [employer] Xdtzjx6855 Osorio [facility] [place] [id number] Bacteria None seen (Normal) Mucus Threads Present (Normal) Cast Type Hyaline casts (Normal) Casts Present {/lpf} (Abnormal) Epithelial Cells (non renal) 0-10 {/hpf} (Normal) Range: 0 - 10 RBC 0-2 {/hpf} (Normal) Range: 0 - 2 WBC 0-5 {/hpf} (Normal) Range: 0 - 5 68-Gas-717446:46 Metabolic Panel, Basic Comments: PATIENT NOT FASTINGPERFORMED BY: [employer] [facility] [id number] Information: [id number] (02780) Calcium, Serum 9.5 mg/dL (Normal) Range: 8.7-10.2 Carbon Dioxide, Total 25 mmol/L (Normal) Range: 18-29 Chloride, Serum 99 mmol/L (Normal) Range: 97-108 Potassium, Serum 4.6 mmol/L (Normal) Range: 3.5-5.2 Sodium, Serum 142 mmol/L (Normal) Range: 134-144 BUN/Creatinine Ratio 17 (Normal) Range: 9-20 eGFR If Africn Am 87 mL/min/1.73 (Normal) eGFR If NonAfricn Am 75 mL/min/1.73 (Normal) Creatinine, Serum 1.11 mg/dL (Normal) Range: 0.76-1.27 BUN 19 mg/dL (Normal) Range: 6-24 Glucose, Serum 88 mg/dL (Normal) Range: 65-99 :59 URINALYSIS, W/ MICRO (62945) Comments: PATIENT WAS FASTINGPERFORMED BY: [employer] [facility] [id number] Microscopic Examination See below: (Normal) Comments: Microscopic was indicated and was performed. Microscopic Examination MICRON (Normal) Comments: Microscopic follows if indicated. Nitrite, Urine Negative (Normal) Urobilinogen,Semi-Qn 0.2 mg/dL (Normal) Range: 0.2-1.0 Bilirubin Negative (Normal) Occult Blood Negative (Normal) Ketones Negative (Normal) Glucose Negative (Normal) Protein Negative (Normal) WBC Esterase Negative (Normal) Appearance Clear (Normal) Urine-Color Yellow (Normal) pH 6.0 (Normal) Range: 5.0-7.5 Specific [place] 1.023 (Normal) Range: 1.005-1.030 :59 METABOLIC PANEL, COMPREHENSIVE Comments: PATIENT WAS FASTINGPERFORMED BY: [employer] Fijetd0942 [facility] [id number] ([id number]) ALT (SGPT) 26 [iU]/L (Normal) Range: 0-44 AST (SGOT) 22 [iU]/L (Normal) Range: 0-40 Alkaline Phosphatase, S 98 [iU]/L (Normal) Range: 39-117 Bilirubin, Total 0.4 mg/dL (Normal) Range: 0.0-1.2 A/G Ratio 1.6 (Normal) Range: 1.1-2.5 Globulin, Total 2.8 g/dL (Normal) Range: 1.5-4.5 Albumin, Serum 4.5 g/dL (Normal) Range: 3.5-5.5 Protein, Total, Serum 7.3 g/dL (Normal) Range: 6.0-8.5 Calcium, Serum 9.6 mg/dL (Normal) Range: 8.7-10.2 Carbon Dioxide, Total 25 mmol/L (Normal) Range: 18-29 Chloride, Serum 101 mmol/L (Normal) Range: 97-108 Potassium, Serum 4.7 mmol/L (Normal) Range: 3.5-5.2 Sodium, Serum 145 mmol/L (Abnormal) Range: 134-144 BUN/Creatinine Ratio 17 (Normal) Range: 9-20 eGFR If Africn Am 88 mL/min/1.73 (Normal) eGFR If NonAfricn Am 76 mL/min/1.73 (Normal) Creatinine, Serum 1.10 mg/dL (Normal) Range: 0.76-1.27 BUN 19 mg/dL (Normal) Range: 6-24 Glucose, Serum 93 mg/dL (Normal) Range: 65-99 68-Gvf-88104:59 LIPID PANEL ([id number]) Comments: PATIENT WAS FASTINGPERFORMED BY: [facility]CoVirtua [facility] CenterDklxfp6801 [facility] [id number] LDL/HDL Ratio 2.8 {ratio_units} (Normal) Range: 0.0-3.6 Comments: LDL/HDL Ratio Men Women 1/2 Avg.Risk 1.0 1.5 Av g.Risk 3.6 3.2 2X Avg.Risk 6.2 5.0 3X Avg.Risk 8.0 6.1 LDL Cholesterol Calc 134 mg/dL (Abnormal) Range: 0-99 VLDL Cholesterol Yimi 19 mg/dL (Normal) Range: 5-40 HDL Cholesterol 48 mg/dL (Normal) Comments: According to ATP-III Guidelines, HDL-C >59 mg/dL is considered anegative risk factor for CHD. Triglycerides 97 mg/dL (Normal) Range: 0-149 Cholesterol, Total 201 mg/dL (Abnormal) Range: 100-199 :59 CBC with auto diff Comments: PATIENT WAS FASTINGPERFORMED BY: [employer] [facility] [id number] Information: [id number] ([id number]) Immature Grans (Abs) 0.0 {x10E3/uL} (Normal) Range: 0.0-0.1 Immature Granulocytes 0 % (Normal) Baso (Absolute) 0.0 {x10E3/uL} (Normal) Range: 0.0-0.2 Eos (Absolute) 0.2 {x10E3/uL} (Normal) Range: 0.0-0.4 Monocytes(Absolute) 0.8 {x10E3/uL} (Normal) Range: 0.1-0.9 Lymphs (Absolute) 2.0 {x10E3/uL} (Normal) Range: 0.7-3.1 Neutrophils (Absolute) 4.1 {x10E3/uL} (Normal) Range: 1.4-7.0 Basos 1 % (Normal) Eos 2 % (Normal) Monocytes 12 % (Normal) Lymphs 28 % (Normal) Neutrophils 57 % (Normal) Platelets 216 {x10E3/uL} (Normal) Range: 150-379 RDW 13.5 % (Normal) Range: 12.3-15.4 MCHC 33.0 g/dL (Normal) Range: 31.5-35.7 MCH 29.1 pg (Normal) Range: 26.6-33.0 MCV 88 fL (Normal) Range: 79-97 Hematocrit 44.3 % (Normal) Range: 37.5-51.0 Hemoglobin 14.6 g/dL (Normal) Range: 12.6-17.7 RBC 5.02 {x10E6/uL} (Normal) Range: 4.14-5.80 WBC 7.1 {x10E3/uL} (Normal) Range: 3.4-10.8 :59 PSA (PROSTATE SPECIFIC Comments: PATIENT WAS FASTINGPERFORMED BY: [facility]Ad[facility] [id number] ANTIGEN) (V76.44) Prostate Specific Ag, 0.7 ng/mL (Normal) Range: 0.0-4.0 Serum Comments: Chandu ECLIA methodology. .According to the [employer], Serum PSA shoulddecrease and remain at undetectable levels after radicalprostatectomy. The AUA defines biochemical recurrence as an initialPSA value 0.2 ng/mL or greater followed by a subsequent confirmatoryPSA value 0.2 ng/mL or greater.Values obtained with d ifferent assay methods or kits cannot be usedinterchangeably. Results cannot be interpreted as absolute evidenceof the presence or absence of malignant disease. 74-Pmd-07519:51 CBC W/Diff, Automated Comments: DR RAY ORDERED PT,PTT PLT,CRE AND BUNTest performed at:[facility] [address] [place], [place] [address] Absolute Lymph 2.19 {X10_3/ul} (Normal) Range: 0.83-4.51 Absolute Neut 4.5 {X10_3/uL} (Normal) Range: 2.0-7.7 IM GRAN % 0.100 % (Normal) Range: 0.0-0.9 Comments: IG% - Immature Granulocytes (promyelocytes, myelocytes andmetamyelocytes) > 1% indicates that a LEFT SHIFT is Present. BASO% 0.4 % (Normal) Range: 0-1 EO% 2.6 % (Normal) Range: 0-5 MONO% 10.5 % (Abnormal) Range: 0-10 LY% 28.1 % (Normal) Range: 19-41 NEUT% 58.3 % (Normal) Range: 47-70 MPV 10.2 fL (Normal) Range: 6.2-12.0 PLT 189 K/mm3 (Normal) Range: 150-450 RDW SD 43.5 fL (Normal) Range: 35.1-43.9 RDW CV 13.4 % (Normal) Range: 11.6-14.6 MCHC 32.8 {g/gl} (Normal) Range: 32-36 MCH 29.5 pg (Normal) Range: 27.0-32.0 MCV 89.9 fL (Normal) Range: 80-94 HCT 45.4 % (Normal) Range: 40-54 HGB 14.9 g/dL (Normal) Range: 13.0-16.5 RBC 5.05 {M/mm3} (Normal) Range: 4.6-6.2 WBC 7.8 K/mm3 (Normal) Range: 4.4-11.0 :51 Comprehensive Metabolic Profil Comments: DR RAY ORDERED PT,PTT PLT,CRE AND BUNTest performed at:[facility] [address] [place] [address] GAP 6 (Normal) Range: 5-15 CO2 28.0 mmol/L (Normal) Range: 21.0-32.0 CL 105 mmol/L (Normal) Range: 98-107 K 4.2 mmol/L (Normal) Range: 3.5-5.1 NA 139 mmol/L (Normal) Range: 136-145 T BILI 0.70 mg/dL (Normal) Range: 0.00-4.00 ALT 30 U/L (Normal) Range: 12-78 ALK P 103 U/L (Normal) Range: 50-136 AST 21 U/L (Normal) Range: 15-37 CA 9.0 mg/dL (Normal) Range: 8.5-10.1 A/G 1.3 {RATIO} (Normal) Range: 0.9-2.4 GLOB 3.2 g/dL (Normal) Range: 2.7-4.2 ALB 4.3 g/dL (Normal) Range: 3.4-5.0 T PROT 7.5 g/dL (Normal) Range: 6.4-8.2 BUN/CRE 16.4 {RATIO} (Normal) Range: 10-20 EST GFR - AA 90 mL/min (Normal) EST GFR 74 mL/min (Normal) CREAT,SERUM 1.1 mg/dL (Normal) Range: 0.8-1.3 BUN 18 mg/dL (Normal) Range: 7-18 GLU 90 mg/dL (Normal) Range: 70-110 :51 Hepatitis C Antibodies Comments: DR RAY ORDERED PT,PTT PLT,CRE AND BUNTest performed at:[facility] [address] [place] [address] HEP C AB <0.1 {s/co_ratio} (Normal) Range: 0.0-0.9 Comments: Negative: < 0.8 Indeterminate: 0.8 - 0.9 Positive: > 0.9 In order to reduce the incidence of a false positive result, the CDC recommends that all s/co ratios between 1.0 and 10.9 be confirmed by a more specific supplemental or PCR testing. [facility] offers HCV Ab w/Reflex to Verification test #[id number]. :51 Lip[address] Profile [address]: DR RAY ORDERED PT,PTT PLT,CRE AND BUNTest performed at:[facility] [address] [facility] [place] [address] VLDL 21 mg/dL (Normal) Range: 5-40 LDL 103 mg/dL (Normal) Range: 0-130 HDL 43 mg/dL (Normal) Comments: Reference Range HDL <40 mg/dL Low HDL Cholesterol HDL >or= 60 mg/dL High HDL Cholesterol TRIG 105 mg/dL (Normal) Range: 0-199 Comments: Serum Triglycerides Reference Interval Normal <150 mg/dL Borderline high 150 - 199 mg/dL High 200 - 499 mg/dL Very High > or = 500 mg/dL CHOL 167 mg/dL (Normal) Comments: <200 mg/dL Desirable 200-240 mg/dL Borderline >240 mg/dL High Risk :51 Mumps Antibody, IgM Comments: DR RAY ORDERED PT,PTT PLT,CRE AND BUNTest performed at:[facility] [address] [facility] [address] [place] [address] MUMPS IgM < 0.80 AU (Normal) Range: 0.00-0.79 Comments: Negative < 0.80 Borderline 0.80 - 1.20 Positive > 1.20Note: The presence of IgM specific antibody should beinterpreted in conjunction with the patient's clinicalhistory and exposure risk when an acute infection issuspected.Performed at: [address] [id number] Director: Meliton song PhD, Phone: [phone] at: [address] [id number] Director: Jacinto Pavon MD, Phone: [phone] :51 Mumps Antibody,IgG Comments: DR RAY ORDERED PT,PTT PLT,CRE AND BUNTest performed at:[facility] [address] [facility]. [place], [place] [id number] MUMPS,IgG 147.0 AU/mL (Normal) Comments: Negative <9.0 Equivocal 9.0 - 10.9 Positive >10.9A positive result generally indicates past exposure toMumps virus or previous vaccination.Performed at: [facility] [id number] Director: Meliton Kaminski PhD, Phone: [phone] :[phone] Partial Thromboplast Time Comments: DR RAY ORDERED PT,PTT PLT,CRE AND BUNTest performed at:[facility] [address] [place] [address] PTT 29.9 s (Normal) Range: 24.1-36.2 :51 Prothrombin Time w/INR Comments: DR RAY ORDERED PT,PTT PLT,CRE AND BUNTest performed at:[facility] [address] [place] [address] INR 1.0 (Normal) PROTIME 13.3 s (Normal) Range: 11.7-14.9 :51 PSA,Total - Annual Screen Comments: DR RAY ORDERED PT,PTT PLT,CRE AND BUNTest performed at:[facility] [address] [place], [place] [id number] PSA,TOT SCREEN 0.69 ng/mL (Normal) Range: 0.00-4.00 Comments: This test was performed using the TPSA assay method for the[employer] chemistry system. Values obtained with differentassay methods cannot be used interchangably.When changing PSA assays in the course of monitoring apatient, additional sequential testing should be carriedout to confirm baseline values. :51 Rubella IgG > 500.0 {IU/mL} Comments: DR RAY ORDERED PT,PTT PLT,CRE AND BUNTest performed at:[facility] [address] [place], [place] [id number] (Normal) Comments: Antibody results Interpretation of Immune Status < 5 IU/ml Presumed Non-immune 5 - < 10 IU/ml Equivocal > or = 10 IU/ml Presumed Immune :51 Rubeola IgG Ab Comments: DR RAY ORDERED PT,PTT PLT,CRE AND BUNTest performed at:[facility] [address] [place] [address] RUBEOLA 08494 37.2 AU/mL (Normal) Comments: Negative <25.0 Equivocal 25.0 - 29.9 Positive >29.9Presence of antibodies to Rubeola is presumptive evidenceof immunity except when acute infection is suspected. :51 Rubeola IgG Ab Comments: DR RAY ORDERED PT,PTT PLT,CRE AND BUNTest performed at:[facility] [address] [place], [place] [id number] RUBEOLA [address] 37.2 AU/mL (Normal) Comments: Negative <25.0 Equivocal 25.0 - 29.9 Positive >29.9Presence of antibodies to Rubeola is presumptive evidenceof immunity except when acute infection is suspected. :51 Urinalysis, Complete Comments: DR RAY ORDERED PT,PTT PLT,CRE AND BUNHow was Urine Obtained? CLEAN CATCHTest performed at:[facility] [address] [place], [place] [id number] MUCUS, URINE 0 SEEN {/hpf} (Normal) BACTERIA 0 SEEN {/hpf} (Normal) SQUAM EPI 0 SEEN {/hpf} (Normal) Range: 0-5 RBC-UA 0 SEEN {/hpf} (Normal) Range: 0-5 WBC 0 SEEN {/hpf} (Normal) Range: 0-5 LEUK ESTERASE Negative /ul (Normal) OCCULT BLOOD-UR 25 /ul (Abnormal) NITRITE UR Negative (Normal) UROBILI Normal mg/dL (Normal) PROT DIPSTX Negative mg/dL (Normal) pH UR 6.0 (Normal) Range: 5.0 - 8.0 SP.GR. DIPSTX 1.025 (Normal) Range: 1.002-1.030 KETONE UR 5 mg/dL (Abnormal) BILIRUBIN URINE Negative mg/dL (Normal) GLUCOSE, UR Normal mg/dL (Normal) CLARITY Clear (Normal) COLOR Yellow (Normal) :20 METABOLIC PANEL, COMPREHENSIVE Comments: PATIENT WAS FASTINGPERFORMED BY: [employer]70 Osor[address] [facility] [id number] ([id number]) ALT (SGPT) 17 [iU]/L (Normal) Range: 0-44 AST (SGOT) 18 [iU]/L (Normal) Range: 0-40 Alkaline Phosphatase, S 93 [iU]/L (Normal) Range: 39-117 Bilirubin, Total 0.3 mg/dL (Normal) Range: 0.0-1.2 A/G Ratio 1.7 (Normal) Range: 1.1-2.5 Globulin, Total 2.5 g/dL (Normal) Range: 1.5-4.5 Albumin, Serum 4.2 g/dL (Normal) Range: 3.5-5.5 Protein, Total, Serum 6.7 g/dL (Normal) Range: 6.0-8.5 Calcium, Serum 9.2 mg/dL (Normal) Range: 8.7-10.2 Carbon Dioxide, Total 25 mmol/L (Normal) Range: 18-29 Chloride, Serum 104 mmol/L (Normal) Range: 97-108 Potassium, Serum 5.1 mmol/L (Normal) Range: 3.5-5.2 Sodium, Serum 141 mmol/L (Normal) Range: 134-144 BUN/Creatinine Ratio 14 (Normal) Range: 9-20 eGFR If Africn Am 87 mL/min/1.73 (Normal) eGFR If NonAfricn Am 75 mL/min/1.73 (Normal) BUN 16 mg/dL (Normal) Range: 6-24 Creatinine, Serum 1.11 mg/dL (Normal) Range: 0.76-1.27 Glucose, Serum 81 mg/dL (Normal) Range: 65-99 :20 LIPID PANEL (96307) Comments: PATIENT WAS FASTINGPERFORMED BY: [employer]6370 [facility] [id number] LDL/HDL Ratio 2.4 {ratio_units} (Normal) Range: 0.0-3.6 LDL Cholesterol Calc 110 mg/dL (Abnormal) Range: 0-99 VLDL Cholesterol Yimi 24 mg/dL (Normal) Range: 5-40 HDL Cholesterol 46 mg/dL (Normal) Comments: According to ATP-III Guidelines, HDL-C >59 mg/dL is considered anegative risk factor for CHD. Triglycerides 121 mg/dL (Normal) Range: 0-149 Cholesterol, Total 180 mg/dL (Normal) Range: 100-199 61-Qhp-87494:20 CBC WITH MANUAL DIFF Comments: PATIENT WAS FASTINGPERFORMED BY: [facility]CoVirtua [facility] CenterKackgk6792 [facility] [id number] Information: [id number] ([id number]) Immature Grans (Abs) 0.0 {x10E3/uL} (Normal) Range: 0.0-0.1 Immature Granulocytes 0 % (Normal) Range: 0-2 Baso (Absolute) 0.0 {x10E3/uL} (Normal) Range: 0.0-0.2 Eos (Absolute) 0.4 {x10E3/uL} (Normal) Range: 0.0-0.4 Monocytes(Absolute) 0.9 {x10E3/uL} (Normal) Range: 0.1-0.9 Lymphs (Absolute) 2.1 {x10E3/uL} (Normal) Range: 0.7-3.1 Neutrophils (Absolute) 4.8 {x10E3/uL} (Normal) Range: 1.4-7.0 Basos 0 % (Normal) Range: 0-3 Eos 5 % (Normal) Range: 0-5 Monocytes 10 % (Normal) Range: 4-12 Lymphs 25 % (Normal) Range: 14-46 Neutrophils 60 % (Normal) Range: 40-74 Platelets 198 {x10E3/uL} (Normal) Range: 150-379 RDW 13.9 % (Normal) Range: 12.3-15.4 MCHC 33.7 g/dL (Normal) Range: 31.5-35.7 MCH 29.0 pg (Normal) Range: 26.6-33.0 MCV 86 fL (Normal) Range: 79-97 Hematocrit 43.3 % (Normal) Range: 37.5-51.0 Hemoglobin 14.6 g/dL (Normal) Range: 12.6-17.7 RBC 5.04 {x10E6/uL} (Normal) Range: 4.14-5.80 WBC 8.2 {x10E3/uL} (Normal) Range: 3.4-10.8 89-Eaz-844625:06 METABOLIC PANEL, COMPREHENSIVE Comments: PATIENT NOT FASTINGPERFORMED BY: [facility]6370 [facility] [id number] ([id number]) ALT (SGPT) 28 [iU]/L (Normal) Range: 0-44 AST (SGOT) 26 [iU]/L (Normal) Range: 0-40 Alkaline Phosphatase, S 107 [iU]/L (Normal) Range: 39-117 Bilirubin, Total 0.3 mg/dL (Normal) Range: 0.0-1.2 A/G Ratio 1.4 (Normal) Range: 1.1-2.5 Globulin, Total 3.0 g/dL (Normal) Range: 1.5-4.5 Albumin, Serum 4.3 g/dL (Normal) Range: 3.5-5.5 Protein, Total, Serum 7.3 g/dL (Normal) Range: 6.0-8.5 Calcium, Serum 9.7 mg/dL (Normal) Range: 8.7-10.2 Carbon Dioxide, Total 25 mmol/L (Normal) Range: 19-28 Chloride, Serum 101 mmol/L (Normal) Range: 97-108 Potassium, Serum 4.2 mmol/L (Normal) Range: 3.5-5.2 Sodium, Serum 140 mmol/L (Normal) Range: 134-144 BUN/Creatinine Ratio 18 (Normal) Range: 9-20 eGFR If Africn Am 94 mL/min/1.73 (Normal) eGFR If NonAfricn Am 81 mL/min/1.73 (Normal) Creatinine, Serum 1.05 mg/dL (Normal) Range: 0.76-1.27 BUN 19 mg/dL (Normal) Range: 6-24 Glucose, Serum 79 mg/dL (Normal) Range: 65-99 84-Lrh-877320:06 CBC WITH MANUAL DIFF Comments: PATIENT NOT FASTINGPERFORMED BY: [facility]6370 [facility] [id number] Information: [id number] ([id number]) Immature Grans (Abs) 0.0 {x10E3/uL} (Normal) Range: 0.0-0.1 Immature Granulocytes 0 % (Normal) Range: 0-2 Baso (Absolute) 0.1 {x10E3/uL} (Normal) Range: 0.0-0.2 Eos (Absolute) 0.2 {x10E3/uL} (Normal) Range: 0.0-0.4 Monocytes(Absolute) 1.3 {x10E3/uL} (Abnormal) Range: 0.1-0.9 Lymphs (Absolute) 2.6 {x10E3/uL} (Normal) Range: 0.7-3.1 Neutrophils (Absolute) 6.1 {x10E3/uL} (Normal) Range: 1.4-7.0 Basos 1 % (Normal) Range: 0-3 Eos 2 % (Normal) Range: 0-5 Monocytes 12 % (Normal) Range: 4-12 Lymphs 25 % (Normal) Range: 14-46 Neutrophils 60 % (Normal) Range: 40-74 Platelets 244 {x10E3/uL} (Normal) Range: 155-379 RDW 13.4 % (Normal) Range: 12.3-15.4 MCHC 33.5 g/dL (Normal) Range: 31.5-35.7 MCH 29.5 pg (Normal) Range: 26.6-33.0 MCV 88 fL (Normal) Range: 79-97 Hematocrit 43.0 % (Normal) Range: 37.5-51.0 Hemoglobin 14.4 g/dL (Normal) Range: 12.6-17.7 RBC 4.88 {x10E6/uL} (Normal) Range: 4.14-5.80 WBC 10.1 {x10E3/uL} (Normal) Range: 3.4-10.8 22-Lso-08582:52 Metabolic Panel, Basic Comments: PATIENT NOT FASTINGPERFORMED BY: LabCoVirtua [facility] CenterFgnnzz6072 [facility] [id number] Information: [id number] ([id number]) Calcium, Serum 9.7 mg/dL (Normal) Range: 8.7-10.2 Carbon Dioxide, Total 26 mmol/L (Normal) Range: 19-28 Chloride, Serum 103 mmol/L (Normal) Range: 97-108 Potassium, Serum 4.6 mmol/L (Normal) Range: 3.5-5.2 Sodium, Serum 143 mmol/L (Normal) Range: 134-144 BUN/Creatinine Ratio 16 (Normal) Range: 9-20 eGFR If Africn Am 86 mL/min/1.73 (Normal) eGFR If NonAfricn Am 74 mL/min/1.73 (Normal) Creatinine, Serum 1.13 mg/dL (Normal) Range: 0.76-1.27 BUN 18 mg/dL (Normal) Range: 6-24 Glucose, Serum 91 mg/dL (Normal) Range: 65-99 63-Udj-29618:35 Urinalysis, Office ([id number]) UA - BILIRUBIN Negative (Normal) UA - BLOOD Hemolyzed Small (Normal) UA - GLUCOSE Negative (Normal) UA - KETONES Negative mg/dL (Normal) UA - LEUKOCYTE ESTERASE Negative (Normal) UA - NITRITE Negative (Normal) UA - PH 5.0 (Normal) UA - PROTEIN Negative mg/dL (Normal) UA - SPECIFIC GRAVITY 1.025 (Normal) URINE UROBILINGN YESSI TIMED 2 mg/dL (Normal) 60-Nng-35302:25 PT (Prothrobim Time) Comments: standing order; PATIENT NOT FASTINGPERFORMED BY: [employer] Fubmvl0620 [facility] [id number] Information: [id number] ([id number]) Prothrombin Time 25.4 {sec} (Abnormal) Range: 9.1-12.0 INR 2.5 (Abnormal) Range: 0.8-1.2 Comments: Reference interval is for non-anticoagulated patients. . Suggested INR therapeutic range for Vitamin K anta gonist therapy: Standard Dose (moderate intensity therapeutic range): 2.0 - 3.0 Higher intensity therapeutic range 2.5 - 3.5 98-Jkt-634086:15 PT (Prothrobim Time) Comments: standing order; PATIENT NOT FASTINGPERFORMED BY: [facility] InternationalVirtua [facility] CenterUawffp6070 [facility] [id number] Information: [id number] ([id number]) Prothrombin Time 18.3 {sec} (Abnormal) Range: 9.1-12.0 INR 1.8 (Abnormal) Range: 0.8-1.2 Comments: Reference interval is for non-anticoagulated patients. . Suggested INR therapeutic range for Vitamin K anta gonist therapy: Standard Dose (moderate intensity therapeutic range): 2.0 - 3.0 Higher intensity therapeutic range 2.5 - 3.5 :54 PT (Prothrobim Time) Comments: standing order; PATIENT NOT FASTINGPERFORMED BY: LARRY [facility]6370 [facility] [id number] Information: [id number] ([id number]) Prothrombin Time 29.6 {sec} (Abnormal) Range: 9.1-12.0 INR 2.9 (Abnormal) Range: 0.8-1.2 Comments: Reference interval is for non-anticoagulated patients. . Suggested INR therapeutic range for Vitamin K anta gonist therapy: Standard Dose (moderate intensity therapeutic range): 2.0 - 3.0 Higher intensity therapeutic range 2.5 - 3.5 20-Kfj-084725:00 PT (Prothrobim Time) Comments: standing order; PATIENT NOT FASTINGPERFORMED BY: LARRY [facility]6370 [facility] [id number] Information: [id number] ([id number]) Prothrombin Time 29.7 {sec} (Abnormal) Range: 9.1-12.0 INR 2.9 (Abnormal) Range: 0.8-1.2 Comments: Reference interval is for non-anticoagulated patients. . Suggested INR therapeutic range for Vitamin K anta gonist therapy: Standard Dose (moderate intensity therapeutic range): 2.0 - 3.0 Higher intensity therapeutic range 2.5 - 3.5 16-Kjo-312209:43 Urinalysis, Office ([id number]) UA - BILIRUBIN Negative (Normal) UA - BLOOD Hemolyzed Moderate (Normal) UA - GLUCOSE Negative (Normal) UA - KETONES Negative mg/dL (Normal) UA - LEUKOCYTE ESTERASE Negative (Normal) UA - NITRITE Negative (Normal) UA - PH 6.0 (Normal) UA - PROTEIN Negative mg/dL (Normal) UA - SPECIFIC GRAVITY 1.025 (Normal) URINE UROBILINGN YESSI TIMED 2 mg/dL (Normal) 25-Omd-569101:42 Prothrombin Time (PT) Comments: PERFORMED BY: [facility]idcasterNor-[facility] HospitalAwzygu0510 [facility] [id number] Prothrombin Time 37.9 {sec} (Abnormal) Range: 9.1-12.0 INR 3.7 (Abnormal) Range: 0.8-1.2 Comments: Client Requested Flag Reference interval is for non- anticoagulated patients. . Suggested INR therapeutic ra nge for Vitamin K antagonist therapy: Standard Dose (moderate intensity therapeutic range): 2.0 - 3.0 Higher intensity therapeutic range 2.5 - 3.5 :52 PT INR 3.8 (Abnormal) Comments: RESULTS CALLED TO 12/13/11 LAYLA ROSAS.REPORT READ BACK BY SAME . PTP 33.8 s (Abnormal) Range: 11.9-14.4 :50 PT INR 2.8 (Normal) PTP 26.8 s (Abnormal) Range: 11.9-14.4 :50 LIPID VLDL 30 mg/dL (Normal) Range: 5-40 LDL 131 mg/dL (Abnormal) Range: 0-130 HDL 43 mg/dL (Normal) Comments: Reference Range HDL <40 mg/dL Low HDL Cholesterol HDL >or= 60 mg/dL High HDL Cholesterol TRIG 151 mg/dL (Normal) Comments: Serum Triglycerides Reference Interval Normal <150 mg/dL Borderline high 150 - 199 mg/dL High 200 - 499 mg/dL Very High > or = 500 mg/dL CHOL 204 mg/dL (Abnormal) Comments: <200 mg/dL Desirable 200-240 mg/dL Borderline >240 mg/dL High Risk :50 PSA 0.62 ng/mL (Normal) Range: 0.00-4.00 Comments: NEW TEST ASSAY METHOD SEPTEMBER 05, 2011This test was performed using the TPSA assay method for the[employer] chemistry system. Values obtained with differentassay methods cannot be used interchangably.When ch anging PSA assays in the course of monitoring apatient, additional sequential testing should be carriedout to confirm baseline values. :01 PT INR 2.3 (Normal) PTP 23.3 s (Abnormal) Range: 11.9-14.4 :40 PT INR 2.8 (Normal) PTP 26.8 s (Abnormal) Range: 11.9-14.4 :57 PT INR 2.9 (Normal) PTP 27.8 s (Abnormal) Range: 11.9-14.4 :55 PT INR 2.3 (Normal) PTP 24.3 s (Abnormal) Range: 11.9-14.4 :45 PT INR 2.8 (Normal) PTP 28.2 s (Abnormal) Range: 11.9-14.4 :15 CBCMD RBCM NORM C+C {NORMAL} (Normal) PE ADEQUATE (Normal) EOS 2 % (Normal) Range: 0-5 MON 12 % (Abnormal) Range: 0-10 LYMPH 28 % (Normal) Range: 19-41 BAND 1 % (Normal) Range: 0-5 PMN 57 % (Normal) Range: 47-70 RJ 100 (Normal) ANC 5.0 3/uL (Normal) Range: 2.0-7.7 PLT 219 K/mm3 (Normal) Range: 150-450 RDW 13.9 % (Normal) Range: 11.6-14.6 MCHC 34.2 g/dL (Normal) Range: 32-36 MCH 29.7 pg (Normal) Range: 27.0-32.0 MCV 87.0 fL (Normal) Range: 80-94 HCT 42.1 % (Normal) Range: 40-54 HGB 14.4 g/dL (Normal) Range: 14.0-18.0 RBC 4.84 {M/mm3} (Normal) Range: 4.6-6.2 WBC 8.0 K/mm3 (Normal) Range: 4.4-11.0 :15 CMP Comments: has f/u 08/04/11 GAP 7 (Normal) Range: 5-15 CO2 29.0 mmol/L (Normal) Range: 21.0-32.0 CL 105 mmol/L (Normal) Range: 98-107 K 4.6 mmol/L (Normal) Range: 3.5-5.1 NA 141 mmol/L (Normal) Range: 136-145 BIT 0.30 mg/dL (Normal) Range: 0.00-1.00 ALT 33 U/L (Normal) Range: 12-78 ALK 107 U/L (Normal) Range: 50-136 AST 20 U/L (Normal) Range: 15-37 CA 8.6 mg/dL (Normal) Range: 8.5-10.1 AG 1.2 {RATIO} (Normal) Range: 0.9-2.4 GLOB 3.5 g/dL (Normal) Range: 2.7-4.2 ALB 4.1 g/dL (Normal) Range: 3.4-5.0 TPROT 7.6 g/dL (Normal) Range: 6.4-8.2 BC 13.3 {RATIO} (Normal) Range: 10-20 GFRAA 115 mL/min (Normal) GFR 95 mL/min (Normal) CREAT 0.9 mg/dL (Normal) Range: 0.8-1.3 BUN 12 mg/dL (Normal) Range: 7-18 GLU 85 mg/dL (Normal) Range: 70-110 :15 LIPID LDL 117 mg/dL (Normal) Range: 0-130 VLDL 27 mg/dL (Normal) Range: 5-40 HDL 48 mg/dL (Normal) Comments: Reference Range HDL <40 mg/dL Low HDL Cholesterol HDL >or= 60 mg/dL High HDL Cholesterol TRIG 133 mg/dL (Normal) Comments: Serum Triglycerides Reference Interval Normal <150 mg/dL Borderline high 150 - 199 mg/dL High 200 - 499 mg/dL Very High > or = 500 mg/dL CHOL 192 mg/dL (Normal) Comments: <200 mg/dL Desirable 200-240 mg/dL Borderline >240 mg/dL High Risk :15 PROL 19.4 ng/mL (Abnormal) Range: 4.0-15.2 Comments: Performed at: - [facility] [id number] Director: Imelda Nye MD, Phone: [phone] :[phone] PSA 0.8 ng/mL (Normal) Range: 0.0-4.0 :15 PT INR 2.8 (Normal) PTP 28.5 s (Abnormal) Range: 11.9-14.4 :15 ALEXIS 353 ng/dL (Normal) Range: 348-1197 :15 UAC UMUC 0 SEEN {/hpf} (Normal) UBAC RARE {/hpf} (Normal) UEPIS 0-5 SEEN {/hpf} (Normal) Range: 0-5 URBC 0-5 SEEN {/hpf} (Normal) Range: 0-5 UWBC 0-5 SEEN {/hpf} (Normal) Range: 0-5 JANNIE NEGATIVE (Normal) UOB 1+ (Abnormal) JUAN NEGATIVE (Normal) UROBU 0.2 EU/dl (Normal) Range: 0.2 - 1.0 uPROTU NEGATIVE (Normal) QUINTON 5.0 (Normal) Range: 5.0-8.0 SGU 1.025 (Normal) Range: 1.002-1.030 KETU NEGATIVE mg/dL (Normal) BILIU NEGATIVE (Normal) GLUR NEGATIVE (Normal) UCLAR CLEAR (Normal) UCOL YELLOW (Normal) :24 PRO TIME INR 2.5 (Normal) PROTIME 26.1 s (Abnormal) Range: 11.9-14.4 :36 Prothrombin Time (PT) Comments: PERFORMED BY: [facility]6370 [facility] [id number] Prothrombin Time 23.6 {sec} (Abnormal) Range: 9.1-12.0 Comments: Please note reference interval change INR 2.2 (Abnormal) Range: 0.8-1.2 Comments: Reference interval is for non-anticoagulated patients. . Suggested INR therapeutic range for Vitamin K anta gonist therapy: Standard Dose (moderate intensity therapeutic range): 2.0 - 3.0 Higher intensity therapeutic range 2.5 - 3.5 :36 PRO TIME INR 1.8 (Normal) PROTIME 20.3 s (Abnormal) Range: 11.9-14.4 :28 PRO TIME INR 2.2 (Normal) PROTIME 23.5 s (Abnormal) Range: 11.9-14.4 :45 PRO TIME INR 2.3 (Normal) PROTIME 24.2 s (Abnormal) Range: 11.9-14.4 :08 PRO TIME INR 2.3 (Normal) PROTIME 24.4 s (Abnormal) Range: 11.9-14.4 :51 PRO TIME INR 2.3 (Normal) PROTIME 24.3 s (Abnormal) Range: 11.9-14.4 :00 CBCD,SMEAR DIFF RED CELL MORPH SeeNote {NORMAL} (Normal) Comments: Result: NORM C+C PLT EST SeeNote (Normal) Comments: Result: ADEQUATE EOS 1 % (Normal) Range: 0-5 MONOCYTE 6 % (Normal) Range: 0-10 LYMPH 30 % (Normal) Range: 19-41 SEGS 63 % (Normal) Range: 47-70 CELLS COUNTED 100 (Normal) ABSOLUTE NEUT 5.9 3/uL (Normal) Range: 2.0-7.7 PLT 246 K/mm3 (Normal) Range: 150-450 RDW 14.2 % (Normal) Range: 11.6-14.6 MCHC 33.2 g/dL (Normal) Range: 32-36 MCH 29.1 pg (Normal) Range: 27.0-32.0 MCV 87.7 fL (Normal) Range: 80-94 HCT 41.2 % (Normal) Range: 40-54 HGB 13.7 g/dL (Abnormal) Range: 14.0-18.0 RBC 4.70 {M/mm3} (Normal) Range: 4.6-6.2 WBC 9.4 K/mm3 (Normal) Range: 4.4-11.0 :00 COMP METABOLIC GAP 11 (Normal) Range: 5-15 CO2 28.0 mmol/L (Normal) Range: 21.0-32.0 CL 102 mmol/L (Normal) Range: 98-107 K 4.8 mmol/L (Normal) Range: 3.5-5.1 NA 141 mmol/L (Normal) Range: 136-145 T BILI 0.30 mg/dL (Normal) Range: 0.00-1.00 ALT 28 U/L (Normal) Range: 12-78 ALK P 114 U/L (Normal) Range: 50-136 AST 13 U/L (Abnormal) Range: 15-37 CA 9.3 mg/dL (Normal) Range: 8.5-10.1 A/G 1.1 {RATIO} (Normal) Range: 0.9-2.4 GLOB 3.6 g/dL (Normal) Range: 2.7-4.2 ALB 4.1 g/dL (Normal) Range: 3.4-5.0 T PROT 7.7 g/dL (Normal) Range: 6.4-8.2 BUN/CRE 12.7 {RATIO} (Normal) Range: 10-20 EST GFR - AA 91 mL/min (Normal) EST GFR 75 mL/min (Normal) CREAT,SERUM 1.1 mg/dL (Normal) Range: 0.8-1.3 BUN 14 mg/dL (Normal) Range: 7-18 GLU 85 mg/dL (Normal) Range: 70-110 :00 [place] [address] [place] 4283 8.2 m[iU]/mL (Normal) Range: 1.7-8.6 FSH 4309 9.1 m[iU]/mL (Normal) Range: 1.5-12.4 :00 LIPID LDL 132 mg/dL (Abnormal) Range: 0-130 VLDL 21 mg/dL (Normal) Range: 5-40 HDL 45 mg/dL (Normal) Comments: Reference Range HDL <40 mg/dL Low HDL Cholesterol HDL >or= 60 mg/dL High HDL Cholesterol TRIG 106 mg/dL (Normal) Comments: Serum Triglycerides Reference Interval Normal <150 mg/dL Borderline high 150 - 199 mg/dL High 200 - 499 mg/dL Very High > or = 500 mg/dL CHOL 198 mg/dL (Normal) Comments: <200 mg/dL Desirable 200-240 mg/dL Borderline >240 mg/dL High Risk :00 PRO TIME INR 2.5 (Normal) PROTIME 25.6 s (Abnormal) Range: 11.9-14.4 : PROLACTIN 4465 21.5 ng/mL (Abnormal) Range: 4.0-15.2 : TEST FR 172043 8.7 pg/mL (Normal) Range: 7.2-24.0 Comments: Performed at: [address] [id number] Director: Imelda Nye MD, Phone: [phone] at: [place] [id number] Director: Jacinto Pavon MD, Phone: [phone] [id number]:47 PRO TIME INR 2.9 (Normal) PROTIME 29.2 s (Abnormal) Range: 11.9-14.4 :37 PRO TIME INR 2.3 (Normal) PROTIME 24.2 s (Abnormal) Range: 11.9-14.4 Comments: Effective SEPTEMBER 14, 2010. :20 PRO TIME INR 2.4 (Normal) PROTIME 25.3 s (Abnormal) Range: 11.9-14.4 Comments: Effective SEPTEMBER 14, 2010. :03 Urinalysis, Office (31443) UA - BILIRUBIN Negative (Normal) UA - BLOOD Hemolyzed Moderate (Normal) UA - GLUCOSE Negative (Normal) UA - KETONES Negative mg/dL (Normal) UA - LEUKOCYTE ESTERASE Negative (Normal) UA - NITRITE Negative (Normal) UA - PH 6.0 (Normal) UA - PROTEIN Negative mg/dL (Normal) UA - SPECIFIC GRAVITY 1.025 (Normal) URINE UROBILINGN YESSI TIMED Normal mg/dL (Normal) :01 PT (Prothrobim Time) Comments: PATIENT NOT FASTINGPERFORMED BY: [facility] Vosenl4006 [facility] [id number] Information: [id number] (84424) Prothrombin Time 35.2 {sec} (Abnormal) Range: 8.7-11.5 INR 3.3 (Abnormal) Range: 0.8-1.2 Comments: Reference interval is for non-anticoagulated patients. . Suggested INR therapeutic range for Vitamin K anta gonist therapy: Standard Dose (moderate intensity therapeutic range): 2.0 - 3.0 Higher intensity therapeutic range 2.5 - 3.5 :01 PROLACTIN (67358) Comments: PATIENT NOT FASTINGPERFORMED BY: VidcasterVirtua Our Lady [facility] Lourdes Medical CenterUcdisv4730 [facility] [id number] Prolactin 20.4 ng/mL (Abnormal) Range: 4.0-15.2 :01 GONADOTROPIN-FSH (13488) Comments: PATIENT NOT FASTINGPERFORMED BY: VidcasterVirtua [facility] Lour[facility] Medical CenterAwvmoz5909 [facility] [id number] FSH 9.0 m[iU]/mL (Normal) Range: 1.5-12.4 :01 GONADOTROPIN-LH (88925) Comments: PATIENT NOT FASTINGPERFORMED BY: [facility]6370 [facility] [id number] LH 6.1 m[iU]/mL (Normal) Range: 1.7-8.6 23-Vyi-803522:15 TESTOSTERONE FREE (65624) Comments: PATIENT WAS FASTINGPERFORMED BY: [place]HA[place] 2664370 [facility] [id number] BY: [address] [id number] Free Testosterone(Direct) 5.0 pg/mL (Abnormal) Range: 7.2-24.0 82-Nei-733101:15 PSA (PROSTATE SPECIFIC Comments: PATIENT WAS FASTINGPERFORMED BY: VidcasterVirtua [facility] Medical CenterDzneiz9212 [facility] [id number] BY: [address] [id number] ANTIGEN) (V76.44) Prostate Specific Ag, 0.6 ng/mL (Normal) Range: 0.0-4.0 Serum Comments: Chandu ECLIA methodology. .According to the [employer], Serum PSA shoulddecrease and remain at undetectable levels after radicalprostatectomy. The AUA defines biochemical recurrence as an initialPSA value 0.2 ng/mL or greater followed by a subsequent confirmatoryPSA value 0.2 ng/mL or greater.Values obtained with d ifferent assay methods or kits cannot be usedinterchangeably. Results cannot be interpreted as absolute evidenceof the presence or absence of malignant disease. 43-Zjf-116518:15 METABOLIC PANEL, Comments: PATIENT WAS FASTINGPERFORMED BY: XIHAMarlette [facility] Hospital6370 [facility] [id number] BY: [address] [id number] COMPREHENSIVE (92508) A/G Ratio 1.6 (Normal) Range: 1.1-2.5 Alkaline Phosphatase, S 125 [iU]/L (Normal) Range: 25-150 ALT (SGPT) 34 [iU]/L (Normal) Range: 0-55 AST (SGOT) 25 [iU]/L (Normal) Range: 0-40 Bilirubin, Total 0.4 mg/dL (Normal) Range: 0.0-1.2 Albumin, Serum 4.7 g/dL (Normal) Range: 3.5-5.5 Calcium, Serum 9.7 mg/dL (Normal) Range: 8.7-10.2 Carbon Dioxide, Total 25 mmol/L (Normal) Range: 20-32 Globulin, Total 2.9 g/dL (Normal) Range: 1.5-4.5 Protein, Total, Serum 7.6 g/dL (Normal) Range: 6.0-8.5 BUN/Creatinine Ratio 13 (Normal) Range: 9-20 Chloride, Serum 99 mmol/L (Normal) Range: 97-108 Potassium, Serum 4.2 mmol/L (Normal) Range: 3.5-5.2 Sodium, Serum 139 mmol/L (Normal) Range: 135-145 BUN 15 mg/dL (Normal) Range: 6-24 Creatinine, Serum 1.18 mg/dL (Normal) Range: 0.76-1.27 eGFR If Africn Am 83 mL/min/1.73 (Normal) Comments: Note: A persistent eGFR <60 mL/min/1.73 m2 (3 months or more) mayindicate chronic kidney disease. An eGFR >59 mL/min/1.73 m2 with anelevated urine protein also may indicate chronic kidney disease.Calculated using CKD-EPI formula. eGFR If NonAfricn Am 72 mL/min/1.73 (Normal) Glucose, Serum 84 mg/dL (Normal) Range: 65-99 08-Dsh-264298:15 LIPID PANEL (48490) Comments: PATIENT WAS FASTINGPERFORMED BY: CB [facility] Gfxcup9552 [facility] [id number] BY: BN [facility] Joojhqyyff3104 [facility] [id number] LDL Cholesterol Calc 136 mg/dL (Abnormal) Range: 0-99 LDL/HDL Ratio 2.6 {ratio_units} (Normal) Range: 0.0-3.6 Cholesterol, Total 214 mg/dL (Abnormal) Range: 100-199 HDL Cholesterol 52 mg/dL (Normal) Comments: According to ATP-III Guidelines, HDL-C >59 mg/dL is considered anegative risk factor for CHD. Triglycerides 128 mg/dL (Normal) Range: 0-149 VLDL Cholesterol Yimi 26 mg/dL (Normal) Range: 5-40 84-Klx-049887:15 CBC WITH MANUAL DIFF Comments: PATIENT WAS FASTINGPERFORMED BY: CB [facility] Jboetf8303 [facility] [id number] BY: BN [facility] Cayojddjkl3853 [facility] [id number] Inf ormation: [id number] (58271) Immature Grans (Abs) 0.0 {x10E3/uL} (Normal) Range: 0.0-0.1 Baso (Absolute) 0.0 {x10E3/uL} (Normal) Range: 0.0-0.2 Immature Granulocytes 0 % (Normal) Range: 0-1 Comments: Effective September 06, 2010, the reference intervals will be changing to: 0 - 2 Basos 0 % (Normal) Range: 0-3 Eos 1 % (Normal) Range: 0-7 Eos (Absolute) 0.1 {x10E3/uL} (Normal) Range: 0.0-0.4 Lymphs (Absolute) 1.9 {x10E3/uL} (Normal) Range: 0.7-4.5 Monocytes(Absolute) 1.2 {x10E3/uL} (Abnormal) Range: 0.1-1.0 Neutrophils (Absolute) 6.5 {x10E3/uL} (Normal) Range: 1.8-7.8 Monocytes 12 % (Normal) Range: 4-13 Lymphs 20 % (Normal) Range: 14-46 Neutrophils 67 % (Normal) Range: 40-74 Platelets 237 {x10E3/uL} (Normal) Range: 140-415 RDW 14.3 % (Normal) Range: 11.7-15.0 MCH 29.2 pg (Normal) Range: 27.0-34.0 MCHC 33.9 g/dL (Normal) Range: 32.0-36.0 Hematocrit 44.8 % (Normal) Range: 36.0-50.0 Hemoglobin 15.2 g/dL (Normal) Range: 12.5-17.0 MCV 86 fL (Normal) Range: 80-98 RBC 5.20 {x10E6/uL} (Normal) Range: 4.10-5.60 WBC 9.7 {x10E3/uL} (Normal) Range: 4.0-10.5 :15 PT (Prothrobim Time) Comments: PATIENT WAS FASTINGPERFORMED BY: [place] 2986170 [facility] [id number] BY: [address] [id number] ([id number]) Prothrombin Time 31.0 {sec} (Abnormal) Range: 8.7-11.5 INR 2.9 (Abnormal) Range: 0.8-1.2 Comments: Reference interval is for non-anticoagulated patients. . Suggested INR therapeutic range for Vitamin K anta gonist therapy: Standard Dose (moderate intensity therapeutic range): 2.0 - 3.0 Higher intensity therapeutic range 2.5 - 3.5 :28 Prothrombin Time (PT) Comments: PERFORMED BY: [facility]6370 [facility] [id number] Prothrombin Time 18.5 {sec} (Abnormal) Range: 8.7-11.5 INR 1.7 (Abnormal) Range: 0.8-1.2 Comments: Reference interval is for non-anticoagulated patients. . Suggested INR therapeutic range for Vitamin K anta gonist therapy: Standard Dose (moderate intensity therapeutic range): 2.0 - 3.0 Higher intensity therapeutic range 2.5 - 3.5 :17 PT (PROTHROMBIN TIME) Comments: PATIENT NOT FASTINGPERFORMED BY: [place] 2986170 [facility] [id number] Information: [id number] (82434) Prothrombin Time 15.0 {sec} (Abnormal) Range: 8.7-11.5 INR 1.4 (Abnormal) Range: 0.8-1.2 Comments: Reference interval is for non-anticoagulated patients. . Suggested INR therapeutic range for Vitamin K anta gonist therapy: Standard Dose (moderate intensity therapeutic range): 2.0 - 3.0 Higher intensity therapeutic range 2.5 - 3.5 :03 PRO TIME Comments: PER ORDER CALL DR WEST WITH RESULT. INR 2.2 (Normal) PROTIME 22.5 s (Abnormal) Range: 9.1-11.7 :52 PRO TIME Comments: Call to with results. To be done on Monday. 08/07/10 INR 1.7 (Normal) Comments: CRITICAL VALUE REPEATED AND VERIFIED. CALLED TO NNBEPK88/21/11 MARY OCHOARESULTS READ BACK BY SAME. PROTIME 17.2 s (Abnormal) Range: 9.1-11.7 :57 PT (Prothrobim Time) Comments: standing order to start ; PATIENT NOT FASTINGPERFORMED BY: [facility] Hxuvxd7585 [facility] [id number] Information: [id number] ([id number]) Prothrombin Time 28.7 {sec} (Abnormal) Range: 9.1-12.0 Comments: Please note reference interval change INR 2.7 (Abnormal) Range: 0.8-1.2 Comments: Reference interval is for non-anticoagulated patients. . Suggested INR therapeutic range for Vitamin K anta gonist therapy: Standard Dose (moderate intensity therapeutic range): 2.0 - 3.0 Higher intensity therapeutic range 2.5 - 3.5 4-Khj-172413:01 Urinalysis, Office (39999) UA - LEUKOCYTE ESTERASE Negative (Normal) UA - NITRITE Negative (Normal) URINE UROBILINGN YESSI TIMED 2 mg/dL (Normal) UA - PROTEIN Negative mg/dL (Normal) UA - PH 5.0 (Normal) UA - BLOOD Hemolyzed Small (Normal) UA - SPECIFIC GRAVITY 1.025 (Normal) UA - KETONES Small mg/dL (Normal) UA - BILIRUBIN Negative (Normal) UA - GLUCOSE Negative (Normal) :11 CBCD,SMEAR DIFF EOS 5 % (Normal) Range: 0-5 MONOCYTE 6 % (Normal) Range: 0-10 PLT EST SeeNote (Normal) Comments: Result: ADEQUATE RED CELL MORPH SeeNote {NORMAL} (Normal) Comments: Result: NORM C+C ABSOLUTE NEUT 5.1 3/uL (Normal) Range: 2.0-7.7 BAND 1 % (Normal) Range: 0-5 CELLS COUNTED 100 (Normal) HCT 43.9 % (Normal) Range: 40-54 LYMPH 27 % (Normal) Range: 19-41 MCH 30.6 pg (Normal) Range: 27.0-32.0 MCHC 34.7 g/dL (Normal) Range: 32-36 MCV 88.2 fL (Normal) Range: 80-94 PLT 186 K/mm3 (Normal) Range: 150-450 RDW 13.2 % (Normal) Range: 11.6-14.6 SEGS 61 % (Normal) Range: 47-70 HGB 15.2 g/dL (Normal) Range: 14.0-18.0 RBC 4.98 {M/mm3} (Normal) Range: 4.6-6.2 WBC 8.4 K/mm3 (Normal) Range: 4.4-11.0 :11 COMP METABOLIC GAP 10 (Normal) Range: 5-15 ALK P 119 U/L (Normal) Range: 50-136 ALT 32 U/L (Normal) Range: 12-78 AST 13 U/L (Abnormal) Range: 15-37 CA 8.9 mg/dL (Normal) Range: 8.5-10.1 CL 102 mmol/L (Normal) Range: 98-107 CO2 27.0 mmol/L (Normal) Range: 21.0-32.0 K 4.4 mmol/L (Normal) Range: 3.5-5.1 NA 139 mmol/L (Normal) Range: 136-145 T BILI 0.60 mg/dL (Normal) Range: 0.00-1.00 A/G 1.0 {RATIO} (Normal) Range: 0.9-2.4 ALB 3.9 g/dL (Normal) Range: 3.4-5.0 BUN 16 mg/dL (Normal) Range: 7-18 BUN/CRE 14.5 {RATIO} (Normal) Range: 10-20 CREAT,SERUM 1.1 mg/dL (Normal) Range: 0.8-1.3 EST GFR 76 mL/min (Normal) EST GFR - AA 92 mL/min (Normal) GLOB 3.9 g/dL (Normal) Range: 2.7-4.2 GLU 88 mg/dL (Normal) Range: 70-110 T PROT 7.8 g/dL (Normal) Range: 6.4-8.2 :11 LIPID HDL 43 mg/dL (Normal) Comments: Reference RangeHDL <40 mg/dL Low HDL CholesterolHDL >or= 60 mg/dL High HDL Cholesterol LDL 119 mg/dL (Normal) Range: 0-130 TRIG 86 mg/dL (Normal) Comments: Serum Triglycerides Reference IntervalNormal <150 mg/dLBorderline high 150 - 199 mg/dLHigh 200 - 499 mg/ dLVery High > or = 500 mg/dL VLDL 17 mg/dL (Normal) Range: 5-40 CHOL 179 mg/dL (Normal) Comments: <200 mg/dL Xajyzncqi153-275 mg/dL Borderline>240 mg/dL High Risk :11 PSA, SCREEN 0.7 ng/mL (Normal) Range: 0.0-4.0 90-Xdb-736789:10 Urinalysis, Office (96642) UA - BLOOD Negative (Normal) UA - LEUKOCYTE ESTERASE Negative (Normal) UA - NITRITE Negative (Normal) UA - PH 5.0 (Normal) Comments: 5.5 UA - PROTEIN Negative mg/dL (Normal) UA - SPECIFIC GRAVITY 1.025 (Normal) URINE UROBILINGN YESSI TIMED 2 mg/dL (Normal) UA - BILIRUBIN Negative (Normal) UA - GLUCOSE Negative (Normal) UA - KETONES Negative mg/dL (Normal) 11-Aqm-662296:10 URINE WILLEM CULTURE-YESSI COL Comments: PATIENT NOT FASTINGClinical Information: SRC:UR ADD [id number] PERFORMED BY: LabCoVirtua [facility] CenterLliguy5359 [facility] [id number] COUNT (31529) Result 1 NG36 (Normal) Comments: No growth in 36 - 48 hours. Urine Culture,Comprehensive Final report (Normal) 58-Dnq-80372:00 Urinalysis, Office (40211) UA - BILIRUBIN Negative (Normal) UA - BLOOD Non Hemolyzed Trace (Normal) UA - GLUCOSE Negative (Normal) UA - KETONES Negative mg/dL (Normal) UA - LEUKOCYTE ESTERASE Negative (Normal) Comments: aw UA - NITRITE Negative (Normal) UA - PH 5.0 (Normal) UA - PROTEIN Negative mg/dL (Normal) UA - SPECIFIC GRAVITY 1.025 (Normal) URINE UROBILINGN YESSI TIMED Normal mg/dL (Normal) 7-Iku-223763:08 Urinalysis, Office (33660) UA - BILIRUBIN Negative (Normal) UA - BLOOD Hemolyzed Trace (Normal) UA - GLUCOSE Negative (Normal) UA - KETONES Negative mg/dL (Normal) UA - LEUKOCYTE ESTERASE Negative (Normal) Comments: aw UA - NITRITE Negative (Normal) UA - PH 5.0 (Normal) UA - PROTEIN Negative mg/dL (Normal) UA - SPECIFIC GRAVITY 1.025 (Normal) URINE UROBILINGN YESSI TIMED Normal mg/dL (Normal) :14 CBCD BASO% 0.2 % (Normal) Range: 0-1 EO% 1.7 % (Normal) Range: 0-5 HCT 45.0 % (Normal) Range: 40-54 HGB 15.2 g/dL (Normal) Range: 14.0-18.0 LY% 25.6 % (Normal) Range: 19-41 MCH 30.1 pg (Normal) Range: 27.0-32.0 MCHC 33.9 g/dL (Normal) Range: 32-36 MCV 88.9 fL (Normal) Range: 80-94 MONO% 10.2 % (Abnormal) Range: 0-10 MPV 8.8 fL (Normal) Range: 6.5-12.0 NEUT% 62.3 % (Normal) Range: 47-70 PLT 225 K/mm3 (Normal) Range: 150-450 RBC 5.06 {M/mm3} (Normal) Range: 4.6-6.2 RDW 13.7 % (Normal) Range: 11.6-14.6 WBC 9.3 K/mm3 (Normal) Range: 4.4-11.0 :14 COMP METABOLIC A/G 1.0 {RATIO} (Normal) Range: 0.9-2.4 ALB 4.0 g/dL (Normal) Range: 3.4-5.0 ALK P 114 U/L (Normal) Range: 50-136 ALT 46 U/L (Normal) Range: 30-65 AST 20 U/L (Normal) Range: 15-37 BUN 14 mg/dL (Normal) Range: 7-18 BUN/CRE 11.7 {RATIO} (Normal) Range: 10-20 CA 9.1 mg/dL (Normal) Range: 8.5-10.1 CL 103 mmol/L (Normal) Range: 98-107 CO2 29.1 mmol/L (Normal) Range: 21.0-32.0 CREAT,SERUM 1.2 mg/dL (Normal) Range: 0.8-1.3 EST GFR 69 mL/min (Normal) EST GFR - AA 84 mL/min (Normal) GAP 6 (Normal) Range: 5-15 GLOB 3.9 g/dL (Normal) Range: 2.7-4.2 GLU 93 mg/dL (Normal) Range: 70-110 K 5.1 mmol/L (Normal) Range: 3.5-5.1 NA 138 mmol/L (Normal) Range: 136-145 T BILI 0.27 mg/dL (Normal) Range: 0.00-1.00 T PROT 7.9 g/dL (Normal) Range: 6.4-8.2 :14 LIPID CHOL 192 mg/dL (Normal) Comments: <200 mg/dL Desirable 200-240 mg/dL Borderline >240 mg/dL High Risk HDL 48 mg/dL (Normal) Comments: Reference Range HDL <40 mg/dL Low HDL Cholesterol HDL >or= 60 mg/dL High HDL Cholesterol LDL 115 mg/dL (Normal) Range: 0-130 TRIG 143 mg/dL (Normal) Comments: Serum Triglycerides Reference Interval Normal <150 mg/dL Borderline high 150 - 199 mg/dL High 200 - 499 mg/dL Very High > or = 500 mg/dL VLDL 29 mg/dL (Normal) Range: 5-40 :14 PSA,TOT SCREEN 0.71 ng/mL (Normal) Range: 0.00-4.00 Comments: This test was performed using the TPSA method for the[employer] chemistry system.Values obtained with different assay methods cannot be usedinterchangably.When changing PSA assays in the course of monito ring apatient, additional sequential testing should be carriedout to confirm baseline values. :14 TSH 1.60 {uIU/mL} (Normal) Range: 0.34-4.82 :16 CBCD,SMEAR DIFF BAND 4 % (Normal) Range: 0-5 BASOPHIL 2 % (Abnormal) Range: 0-1 CELLS COUNTED 100 (Normal) EOS 1 % (Normal) Range: 0-5 HCT 41.9 % (Normal) Range: 40-54 HGB 14.3 g/dL (Normal) Range: 14.0-18.0 LYMPH 28 % (Normal) Range: 19-41 MCH 29.6 pg (Normal) Range: 27.0-32.0 MCHC 34.1 g/dL (Normal) Range: 32-36 MCV 86.7 fL (Normal) Range: 80-94 MONOCYTE 11 % (Abnormal) Range: 0-10 PLT 237 K/mm3 (Normal) Range: 150-450 PLT EST SeeNote (Normal) Comments: Result: ADEQUATE RBC 4.83 {M/mm3} (Normal) Range: 4.6-6.2 RDW 13.3 % (Normal) Range: 11.6-14.6 RED CELL MORPH SeeNote {NORMAL} (Normal) Comments: Result: NORM C+C SEGS 54 % (Normal) Range: 47-70 WBC 8.1 K/mm3 (Normal) Range: 4.4-11.0 88-Qqj-43494:16 COMP METABOLIC A/G 1.1 {RATIO} (Normal) Range: 0.9-2.4 ALB 3.9 g/dL (Normal) Range: 3.4-5.0 ALK P 104 U/L (Normal) Range: 50-136 ALT 52 [iU]/L (Normal) Range: 30-65 AST 20 U/L (Normal) Range: 15-37 BUN 14 mg/dL (Normal) Range: 7-18 BUN/CRE 14.0 {RATIO} (Normal) Range: 10-20 CA 8.8 mg/dL (Normal) Range: 8.5-10.1 CL 104 mmol/L (Normal) Range: 98-107 CO2 29.0 mmol/L (Normal) Range: 21.0-32.0 CREAT,SERUM 1.0 mg/dL (Normal) Range: 0.8-1.3 GAP 5 (Normal) Range: 5-15 GLOB 3.5 g/dL (Normal) Range: 2.7-4.2 GLU 86 mg/dL (Normal) Range: 70-110 K 4.2 mmol/L (Normal) Range: 3.5-5.1 NA 138 mmol/L (Normal) Range: 136-145 T BILI 0.38 mg/dL (Normal) Range: 0.00-1.00 T PROT 7.4 g/dL (Normal) Range: 6.4-8.2 :16 LIPID CHOL 171 mg/dL (Normal) Comments: <200 mg/dL Desirable 200-240 mg/dL Borderline >240 mg/dL High Risk HDL 37 mg/dL (Normal) Comments: Reference Range HDL <40 mg/dL Low HDL Cholesterol HDL >or= 60 mg/dL High HDL Cholesterol LDL 111 mg/dL (Normal) Range: 0-130 TRIG 114 mg/dL (Normal) Comments: Serum Triglycerides Reference Interval Normal <150 mg/dL Borderline high 150 - 199 mg/dL High 200 - 499 mg/dL Very High > or = 500 mg/dL VLDL 23 mg/dL (Normal) Range: -40 :16 PSA,TOT SCREEN 0.69 ng/mL (Normal) Range: 0.00-4.00 Comments: This test was performed using the TPSA method for the[employer] chemistry system.Values obtained with different assay methods cannot be usedinterchangably.When changing PSA assays in the course of monito ring apatient, additional sequential testing should be carriedout to confirm baseline values. :16 TSH 1.62 {uIU/mL} (Normal) Range: 0.34-4.82 :11 LIPID CHOL 177 mg/dL (Normal) Comments: <200 mg/dL Desirable 200-240 mg/dL Borderline >240 mg/dL High Risk HDL 40 mg/dL (Normal) Comments: Reference Range HDL <40 mg/dL Low HDL Cholesterol HDL >or= 60 mg/dL High HDL Cholesterol LDL 115 mg/dL (Normal) Range: 0-130 TRIG 110 mg/dL (Normal) Comments: Serum Triglycerides Reference Interval Normal <150 mg/dL Borderline high 150 - 199 mg/dL High 200 - 499 mg/dL Very High > or = 500 mg/dL VLDL 22 mg/dL (Normal) Range: 5-40 :11 PSA,TOT SCREEN 0.92 ng/mL (Normal) Range: 0.00-4.00 Comments: This test was performed using the TPSA method for the[employer] chemistry system.Values obtained with different assay methods cannot be usedinterchangably.When changing PSA assays in the course of monito ring apatient, additionaly sequential testing should be carriedout to confirm baseline values. :11 ROUTINE UA BILIRUBIN URINE SeeNote (Normal) Comments: Result: NEGATIVE CLARITY CLEAR (Normal) COLOR YELLOW (Normal) GLUCOSE, UR SeeNote (Normal) Comments: Result: NEGATIVE KETONE UR SeeNote mg/dL (Normal) Comments: Result: NEGATIVE LEUK ESTERASE SeeNote (Normal) Comments: Result: NEGATIVE NITRITE UR SeeNote (Normal) Comments: Result: NEGATIVE OCCULT BLOOD-UR SeeNote (Normal) Comments: Result: NEGATIVE pH UR 5.5 (Normal) Range: 5.0-8.0 PROT DIPSTX SeeNote (Normal) Comments: Result: NEGATIVE SP.GR. DIPSTX >=1.030 (Normal) Range: 1.002-1.030 UROBILI 0.2 EU/dl (Normal) Range: 0.2 - 1.0 Plan of Care Name Dates Details Instructions BMI 45.0-49.9, adult : Follow up if no improvement or if symptoms worsen Indication: BMI 45.0-49.9, adult BMI 45.0-49.9, adult : Eprescribed prescriptions (G8553) Indication: BMI 45.0-49.9, adult Encounter for routine history and physical exam for male : Eprescribed prescriptions (G8553) Indication: Encounter for routine history and physical exam for male Obesity : Eprescribed prescriptions (G8553) Indication: Obesity Benign essential hypertension : *Tremaine Inhibitor Side Effects Indication: Benign essential hypertension Pre-operative examination : Eprescribed prescriptions (G8553) Indication: Pre-operative examination Rash : Eprescribed prescriptions (G8553) Indication: Rash Alcohol dependence in sustained full remission : Eprescribed prescriptions (G8553) Indication: Alcohol dependence in sustained full remission NEED FOR PROPHYLACTIC VACCINATION AND INOCULATION AGAINST INFLUENZA (V04.81) (Renamed from Need for prophylactic vaccination and inoculation against influenza) : Flu (Influenza) *: flu shot Indication: NEED FOR PROPHYLACTIC VACCINATION AND INOCULATION AGAINST INFLUENZA (V04.81) (Renamed from Need for prophylactic vaccination and inoculation against influenza) Chronic sinusitis : Flu Shots (Influenza Vaccine): prevention Indication: Chronic sinusitis Elevated blood-pressure reading without diagnosis of hypertension : High Blood Pressure (Essential Hypertension) *: cardiovascular health Indication: Elevated blood-pressure reading without diagnosis of hypertension Elevated blood-pressure reading without diagnosis of hypertension : FOLLOW UP IN 3 MONTHS to evaluate BP and lifestyle modification Indication: Elevated blood-pressure reading without diagnosis of hypertension Neoplasm of uncertain behavior of skin : Shave Biopsy with Epi Indication: Neoplasm of uncertain behavior of skin Neoplasm of uncertain behavior of skin : Punch Biopsy with Epi Indication: Neoplasm of uncertain behavior of skin Neoplasm of uncertain behavior of skin : Shave Biopsy without Epi Indication: Neoplasm of uncertain behavior of skin Planned Observations PSA (Prostate Specific Antigen), Screening ([id number])Indication: Screening for prostate cancer On: 37-Dmo-864866:52 Request MICROALBUMIN: CREATININE RATIO ([id number]) AND ([id number])Indication: Benign essential hypertension On: :51 Request URINALYSIS ([id number])Indication: Benign essential hypertension On: :51 Request CBC WITH MANUAL DIFF ([id number])Indication: Benign essential hypertension On: :51 Request Metabolic Panel, Comprehensive ([id number])Indication: Benign essential hypertension On: 41-Bmo-369796:51 Request HEPATITIS C ANTIBODY ([id number])Indication: Exposure to hepatitis C On: 1-Mau-101785:47 Request METABOLIC PANEL, COMPREHENSIVE ([id number])Indication: Benign essential hypertension On: :46 Request LIPOPROTEIN, BLD, BY NMR ([id number])Indication: Benign essential hypertension On: :46 Request RUBEOLA IgG ([id number])Indication: Encounter for routine history and physical exam for male On: :42 Request RUBELLA IgG ([id number])Indication: Encounter for routine history and physical exam for male On: :42 Request MUMPS IgG ([id number])Indication: Encounter for routine history and physical exam for male On: :42 Request HEPATITIS C ANTIBODY ([id number])Indication: Encounter for routine history and physical exam for male On: :42 Request PSA (PROSTATE SPECIFIC ANTIGEN) (V76.44)Indication: Encounter for routine history and physical exam for male On: :07 Request URINALYSIS, W/ MICRO ([id number])Indication: Benign essential hypertension On: :04 Request METABOLIC PANEL, COMPREHENSIVE ([id number])Indication: Benign essential hypertension On: 81-Xxn-18855:04 Request LIPID PANEL ([id number])Indication: Benign essential hypertension On: : Request CBC W/AUTO DIFF WBC ([id number])Indication: Benign essential hypertension On: :04 Request PT (Prothrobim Time) ([id number])Indication: Deep vein thrombosis, unspecified laterality On: 30-Nov-2012 Request Comments: standing order PT (Prothrobim Time) ([id number])Indication: Deep vein thrombosis, unspecified laterality On: 31-Oct-2012 Request Comments: standing order PT (Prothrobim Time) ([id number])Indication: Deep vein thrombosis, unspecified laterality On: 01-Oct-2012 Request Comments: standing order PT (Prothrobim Time) ([id number])Indication: Deep vein thrombosis, unspecified laterality On: 01-Sep-2012 Request Comments: standing order URINALYSIS, W/ MICRO ([id number])Indication: Hematuria, unspecified On: 28-Aug-2012 Request PT (Prothrobim Time) ([id number])Indication: Deep vein thrombosis, unspecified laterality On: 02-Aug-2012 Request Comments: standing order URINALYSIS, W/ MICRO ([id number])Indication: Low HDL (under 40) On: 01-Bhl-38513:20 Request METABOLIC PANEL, COMPREHENSIVE ([id number])Indication: Elevated blood-pressure reading without diagnosis of hypertension On: :19 Request CBC WITH MANUAL DIFF ([id number])Indication: Personal history of thrombosis of leg On: 35-Bmd-81925:19 Request LIPID PANEL ([id number])Indication: Low HDL (under 40) On: 50-Bls-29535:19 Request PSA (PROSTATE SPECIFIC ANTIGEN) (V76.44)Indication: Encounter for routine history and physical exam for male On: 09-Juc-09928:19 Request PT (Prothrobim Time) ([id number])Indication: Deep vein thrombosis, unspecified laterality On: 03-Jul-2012 Request Comments: standing order PT (Prothrobim Time) ([id number])Indication: Deep vein thrombosis, unspecified laterality On: 03-Jun-2012 Request Comments: standing order PT (Prothrobim Time) ([id number])Indication: Deep vein thrombosis, unspecified laterality On: 04-May-2012 Request Comments: standing order METABOLIC PANEL, COMPREHENSIVE ([id number])Indication: Low HDL (under 40) On: :07 Request LIPID PANEL ([id number])Indication: Low HDL (under 40) On: :07 Request URINALYSIS, W/ MICRO ([id number])Indication: Hematuria, unspecified On: :06 Request METABOLIC PANEL, COMPREHENSIVE ([id number])Indication: Elevated blood-pressure reading without diagnosis of hypertension On: :56 Request LIPID PANEL ([id number])Indication: Elevated blood-pressure reading without diagnosis of hypertension On: :56 Request CBC WITH MANUAL DIFF ([id number])Indication: Elevated blood-pressure reading without diagnosis of hypertension On: :56 Request PROLACTIN ([id number])Indication: Abnormal blood chemistry On: :56 Request METABOLIC PANEL, COMPREHENSIVE ([id number])Indication: Elevated blood-pressure reading without diagnosis of hypertension On: 86-Dqy-700609:19 Request LIPID PANEL ([id number])Indication: Elevated blood-pressure reading without diagnosis of hypertension On: 98-Xai-635646:19 Request CBC WITH MANUAL DIFF ([id number])Indication: Elevated blood-pressure reading without diagnosis of hypertension On: 88-Rhm-900525:19 Request TESTOSTERONE FREE ([id number])Indication: Testicular hypofunction On: 13-Iaj-754541:16 Request GONADOTROPIN-FSH ([id number])Indication: Testicular hypofunction On: 29-Xvz-731242:15 Request GONADOTROPIN-LH ([id number])Indication: Testicular hypofunction On: 31-Sjx-757626:15 Request PROLACTIN ([id number])Indication: Testicular hypofunction On: 14-Dxp-004328:15 Request PROLACTIN ([id number])Indication: Testicular hypofunction On: 3-Iyr-052226:14 Request Comments: 8 weeks URINALYSIS, W/ MICRO ([id number])Indication: Hematuria, unspecified On: 59-Kwr-65075:23 Request Planned Encounters Medical; [facility] Exam (Doctor) - On: 05-Apr-2018 7:00 [facility] Shreyas PURDY, Chelsey Pritchett MD, Chelsey Hutchins Planned Procedures Radiology - Foot - LeftBy: Ciesa On: 22-Dec-2017 Intent Betty LEON Radiology - Foot - RightBy: Ciesa On: 22-Dec-2017 Intent Betty LEON EKG ([id number])By: Chelsey Pritchett MD On: 03-Jul-2014 Intent Chelsey Pritchett MD Comments: see scanned document of test done to see results reviewed today with patient ADMINISTRATION OF INFLUENZA VIRUS On: 28-Mar-2014 Intent VACCINE ([id number])By: Chelsey Pritchett MD, MD, Dana M Flu Vaccine (Quadrivalent) [id number]: On: 28-Mar-2014 Intent Chelsey Pritchett MD, MD, Dana Comments: Lot #:[id number] date:mount given:0.5ml Route: IMSite given:left deltoid Given by: Radha Hutchins IMMUNIZ ADMNIN, 1 VAC, SNGL/COMBO On: 26-Feb-2013 Intent ([id number])By: Chelsey Pritchett MD, MD, Dana M FLU VAC, SPLIT, >3 YEARS, INTRAMUSC On: 26-Feb-2013 Intent ([id number])By: Chelsey Pritchett MD, MD, Dana M Venous Doppler - RightBy: Shreyas On: 26-Feb-2013 Intent Chelsey PURDY MD, Dana M Comments: leg 1 week after surgery check clot pt with history of dvt Eprescribed prescriptions ([id number])By: On: 26-Feb-2013 Intent Long LEASING DIRECTOR, Rina L Eprescribed prescriptions ([id number])By: On: 18-Dec-2012 Intent Long LEASING DIRECTOR, Rina L Eprescribed prescriptions ([id number])By: On: 27-Jul-2012 Intent Long LEASING DIRECTOR, Rina L Eprescribed prescriptions ([id number])By: On: 18-Jun-2012 Intent Long LEASING DIRECTOR, Rina L Eprescribed prescriptions ([id number])By: On: 27-Mar-2012 Intent Long LEASING DIRECTOR, Rina L FLU VACCINE H1N1 ([id number])By: Shreyas On: 05-Jan-2012 Intent Chelsey PURDY MD, Dana M FLU VAC, SPLIT, >3 YEARS, INTRAMUSC On: 20-Jan-2011 Intent ([id number])By: Fior Cheek LPN Comments: Lot #[id number]/12Site-right deltoidgiven by: Ellis Cheek LPN IMMUNIZ ADMNIN, 1 VAC, SNGL/COMBO On: 20-Jan-2011 Intent ([id number])By: Fior Cheek LPN Eprescribed prescriptions ([id number])By: On: 16-Sep-2010 Intent Chelsey Pritchett MD, MD, Dana M Bio Z ([id number])By: Betty Davis CNP On: 17-Nov-2009 Intent ELECTROCARDIOGRAM, COMPLETE (ECG) On: 17-Nov-2009 Intent ([id number])By: Betty Davis CNP Eye Exam ([id number])By: Karan LARA, On: 17-Nov-2009 Intent Sharron Comments: OD- 20/20-1 OS- 20/20-1 OU- 2020 TDAP VACCINE >7 IM ([id number])By: On: 01-Sep-2009 Intent Shreyas PURDY, Chelsey Mcclain MD Comments: Lot #[id number]/1/2012Site-right dltDose0.5mlgiven by Isiah Hutchins BIOPSY OF SKIN LESION, SINGLE On: 22-Mar-2006 Intent ([id number])By: Shreyas PURDY, Chelsey Mcclain MD Instructions Name Dates Details BMI 45.0-49.9, adult : How to access health information online Indication: BMI 45.0-49.9, adult BMI 45.0-49.9, adult : How to access health information online - Detail Indication: BMI 45.0-49.9, adult BMI 45.0-49.9, adult : Patient Instructions Indication: BMI 45.0-49.9, adult BMI 45.0-49.9, adult : How to access health information online Indication: BMI 45.0-49.9, adult BMI 45.0-49.9, adult : How to access health information online - Detail Indication: BMI 45.0-49.9, adult BMI 45.0-49.9, adult : Patient Instructions Indication: BMI 45.0-49.9, adult BMI 40.0-44.9, adult : How to access health information online Indication: BMI 40.0-44.9, adult BMI 40.0-44.9, adult : How to access health information online - Detail Indication: BMI 40.0-44.9, adult BMI 40.0-44.9, adult : Patient Instructions Indication: BMI 40.0-44.9, adult Encounter for routine history and physical exam for male : How to access health information online Indication: Encounter for routine history and physical exam for male Encounter for routine history and physical exam for male : How to access health information online - Detail Indication: Encounter for routine history and physical exam for male Encounter for routine history and physical exam for male : Patient Instructions Indication: Encounter for routine history and physical exam for male Obesity : How to access health information online Indication: Obesity Obesity : How to access health information online - Detail Indication: Obesity Obesity : Patient Instructions Indication: Obesity BMI 40.0-44.9, adult : How to access health information online Indication: BMI 40.0-44.9, adult BMI 40.0-44.9, adult : How to access health information online - Detail Indication: BMI 40.0-44.9, adult BMI 40.0-44.9, adult : Patient Instructions Indication: BMI 40.0-44.9, adult BMI 40.0-44.9, adult : How to access health information online Indication: BMI 40.0-44.9, adult BMI 40.0-44.9, adult : How to access health information online - Detail Indication: BMI 40.0-44.9, adult BMI 40.0-44.9, adult : Patient Instructions Indication: BMI 40.0-44.9, adult BMI 40.0-44.9, adult : Weight check (V05.4) Indication: BMI 40.0-44.9, adult BMI 40.0-44.9, adult : How to access health information online Indication: BMI 40.0-44.9, adult BMI 40.0-44.9, adult : How to access health information online - Detail Indication: BMI 40.0-44.9, adult BMI 40.0-44.9, adult : Patient Instructions Indication: BMI 40.0-44.9, adult BMI 40.0-44.9, adult : How to access health information online Indication: BMI 40.0-44.9, adult BMI 40.0-44.9, adult : How to access health information online - Detail Indication: BMI 40.0-44.9, adult BMI 40.0-44.9, adult : Patient Instructions Indication: BMI 40.0-44.9, adult Encounter for routine history and physical exam for male : How to access health information online Indication: Encounter for routine history and physical exam for male Encounter for routine history and physical exam for male : How to access health information online - Detail Indication: Encounter for routine history and physical exam for male Encounter for routine history and physical exam for male : Patient Instructions Indication: Encounter for routine history and physical exam for male Encounter for routine history and physical exam for male : How to access health information online Indication: Encounter for routine history and physical exam for male Encounter for routine history and physical exam for male : How to access health information online - Detail Indication: Encounter for routine history and physical exam for male Encounter for routine history and physical exam for male : Patient Instructions Indication: Encounter for routine history and physical exam for male Avulsion fracture of calcaneus with nonunion, right : How to access health information online Indication: Avulsion fracture of calcaneus with nonunion, 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, right : How to access health information online - Detail Indication: Avulsion fracture of calcaneus with nonunion, 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, right : Patient Instructions Indication: Avulsion fracture of calcaneus with nonunion, right Obesity : How to access health information online Indication: Obesity Obesity : How to access health information online - Detail Indication: Obesity Obesity : Patient Instructions Indication: Obesity Avulsion fracture of calcaneus with nonunion, right : How to access health information online Indication: Avulsion fracture of calcaneus with nonunion, 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, right : How to access health information online - Detail Indication: Avulsion fracture of calcaneus with nonunion, 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, right : Patient Instructions Indication: Avulsion fracture of calcaneus with nonunion, right Pre-operative examination : How to access health information online Indication: Pre-operative examination Pre-operative examination : How to access health information online - Detail Indication: Pre-operative examination Pre-operative examination : Patient Instructions Indication: Pre-operative examination Rash : How to access health information online Indication: Rash Rash : How to access health information online - Detail Indication: Rash Alcohol dependence in sustained full remission : How to access health information online Indication: Alcohol dependence in sustained full remission Alcohol dependence in sustained full remission : How to access health information online - Detail Indication: Alcohol dependence in sustained full remission Obesity : Patient Instructions Indication: Obesity Pre-operative examination : Patient Instructions Indication: Pre-operative examination Deep vein thrombosis, unspecified laterality : Patient Instructions Indication: Deep vein thrombosis, unspecified laterality MTHFR mutation : Patient Instructions Indication: MTHFR mutation MTHFR mutation : Patient Instructions Indication: MTHFR mutation Talipes : Patient Instructions Indication: Talipes Elevated blood-pressure reading without diagnosis of hypertension : Patient Instructions Indication: Elevated blood-pressure reading without diagnosis of hypertension Advance Directives Name Dates Details Immunization Registry [place] - Effective on Effective: 30-Mar-201703/30/2017. Expiration date unspecified Encounters Lab Order On: 06-Mar-2018 17:49 Encounter Diagnosis: Benign essential hypertension, Screening for prostate cancer End: 06-Mar-2018 17:53 [facility] Annotation/Addendum On: 22-Dec-2017 8:30 Encounter Diagnosis: Foot pain, left End: 22-Dec-2017 8:34 [facility] Office Visit On: 22-Dec-2017 7:13 Encounter Reason: Insect Bite/Sting - The patient sustained an insect bite/sting to the left foot (bit on this foot) and right foot (has something he is using nystatni cream for on this foot)., [ADDITIONAL REASON] foot pain - Rt foot pain End: 22-Dec-2017 8:29 Encounter Diagnosis: BMI 45.0-49.9, adult, Tobacco abuse, in remission (Renamed from Tobacco dependence in remission), Foot pain, left, Rash, Athlete's foot, left [facility] Phone Encounter On: 27-Nov-2017 12:10 Encounter Diagnosis: Benign essential hypertension End: 27-Nov-2017 12:12 [facility] Office Visit On: 10-Nov-2017 6:56 Encounter Reason: Follow up for chronic medical issues - The patient feels well with minor complaints, has good energy level and is sleeping well. Patient has been compliant with instructions. Current medication use: no End: 10-Nov-2017 7:45 side effects, compliant with dosing regimen and considered effective by patient. Patient sleeps 5 hours per night. Impact of disease: emotional impact-mild. Nutrition: balanced diet and supplemental vit amins. The medical issues the patient is following up for include blood sugar issues, cardiac issues, high blood pressure, high cholesterol and other (obesity, ED, testicular hypofunction, MTHFR).Encounter Diagnosis: BMI 45.0-49.9, adult, Tobacco abuse, in remission (Renamed from Tobacco dependence in remission), Abnormal blood sugar, History of thrombophlebitis, AV fistula, History of pneumonia, Avulsion fracture of calcaneus with nonunion, right, MTHFR mutation, Testicular hypofunction, Inguinal hernia without obstruction or gangrene, Chronic sinusitis, Obesity, Hyperlipidemia, mild, Benign essential hypertension, Low back pain, episodic, Talipes, Alcohol dependence in sustained full remission, Infected tooth, BMI 40.0-44.9, adult [facility] Phone Encounter On: 31-Oct-2017 15:39 Encounter Diagnosis: Benign essential hypertension End: 31-Oct-2017 15:40 [facility] Office Visit On: 06-Oct-2017 7:22 [facility] End: 12-Oct-2017 7:11 Office Visit On: 06-Jul-2017 9:58 Encounter Reason: Follow up for chronic medical issues - The patient feels well with minor complaints and has good energy level. Patient has been compliant with instructions. Current medication use: compliant with dosing End: 06-Jul-2017 10:38 regimen. Patient sleeps 7 hours per night. Impact of disease: emotional impact- mild. Nutrition: balanced diet and supplemental vitamins. The medical issues the patient is following up for include blood sugar issues, cardiac issues, high blood pressure, high cholesterol and other (obesity, talipes, obesity, testicular hypofunction, AV fistula, MTHFR).Encounter Diagnosis: BMI 40.0-44.9, adult, Abnormal blood sugar, Tobacco abuse, in remission (Renamed from Tobacco dependence in remission), Benign essential hypertension, Obesity, Hyperlipidemia, mild [facility] Phone Encounter On: 15-May-2017 8:22 Encounter Diagnosis: Infected tooth End: 15-May-2017 8:39 [facility] Phone Encounter On: 03-Apr-2017 12:17 [facility] End: 03-Apr-2017 12:18 Office Visit On: 30-Mar-2017 6:57 Encounter Reason: Physical male exam - Last seen between 1-3 months ago. General health: feels well with minor complaints, has good energy level and is sleeping well. The patient's appetite is normal. Nutrition: normal/a End: 04-Apr-2017 9:42 dequate. Exercises 0 days per week. Sleeps on average 6 hours per night. Normal bowel and bladder habits. Safety measures include appropriate use of safety belts and home smoke detectors. There are no c urrent emotional problems. The patient's libido is normal. Preventative measures done by patient are screening, colonoscopy (07-29) and PSA (2016). Note for Physical exam: [facility]-Encounter Diagnosis: BMI 40.0-44.9, adult, Tobacco abuse, in remission (Renamed from Tobacco dependence in remission), Encounter for routine history and physical exam for male, History of thrombophlebitis, Avulsion fracture of calcaneus with nonunion, right, Obesity, MTHFR mutation, Inguinal hernia without obstruction or gangrene, Hyperlipidemia, mild, Testicular hypofunction, AV fistula, Benign essential hypertension, Abnormal blood sugar, Low back pain, episodic, Chronic sinusitis, Talipes, Alcohol dependence in sustained full remission, History of pneumonia, Exposure to hepatitis C [facility] Lab Order On: 14-Mar-2017 11:44 Encounter Diagnosis: Benign essential hypertension End: 14-Mar-2017 11:46 [facility] Office Visit On: 08-Dec-2016 9:23 Encounter Reason: Follow up for chronic medical issues - The patient feels well with no complaints.Encounter Diagnosis: AV fistula, Avulsion fracture of calcaneus with nonunion, right, Testicular hypofunction, End: 08-Dec-2016 9:43 Inguinal hernia without obstruction or gangrene, Exposure to hepatitis C, Hyperlipidemia, mild, Benign essential hypertension, History of pneumonia, History of thrombophlebitis, Talipes, Chronic sinusitis, Low back pain, episodic, Obesity, Prediabetes, BMI 40.0-44.9, adult, MTHFR mutation, Tobacco abuse, in remission (Renamed from Tobacco dependence in remission), Alcohol dependence in sustained full remission [facility] Office Visit On: 06-Oct-2016 7:05 Encounter Reason: Follow up for chronic medical issues - The patient feels well with minor complaints, has good energy level and is sleeping well. Patient has been compliant with instructions. Current medication use: no End: 06-Oct-2016 7:43 side effects, compliant with dosing regimen and considered effective by patient. Patient sleeps 7 hours per night. Impact of disease: emotional impact-mild. Nutrition: balanced diet and supplemental vit amins. The medical issues the patient is following up for include blood sugar issues, cardiac issues, high blood pressure and other (obesity, testicular hypofunction, MTHFR, hx. avulsion fracture ).Encounter Diagnosis: Tobacco abuse, in remission (Renamed from Tobacco dependence in remission), BMI 40.0-44.9, adult, Obesity, Low back pain, episodic [facility] Office Visit On: 08-Sep-2016 6:59 [facility] End: 08-Sep-2016 10:40 Office Visit On: 12-Aug-2016 8:37 Encounter Reason: Follow up acute care visit - The patient feeling better since last seen and improving. Patient has been compliant with instructions. Current medication use: no side effects, compliant with dosing regime End: 12-Aug-2016 9:21 n and considered effective by patient. Patient sleeps 7 hours per night. Impact of disease: emotional impact-mild. Nutrition: balanced diet and supplemental vitamins. The medical issues the patient is following up for include other (weight check ). Encounter Diagnosis: BMI 40.0-44.9, adult, Tobacco abuse, in remission (Renamed from Tobacco dependence in remission), Obesity, Prediabetes [facility] Office Visit On: 28-Jul-2016 8:39 Encounter Reason: Follow up for chronic medical issues - The patient feels well with no complaints, has good energy level and is sleeping well. Patient has been compliant with instructions. Current medication use: no bryson End: 28-Jul-2016 9:29 e effects, compliant with dosing regimen and considered effective by patient. Patient sleeps 7 hours per night. Impact of disease: emotional impact-mild. Nutrition: balanced diet and supplemental vitami ns. The medical issues the patient is following up for include blood sugar issues, cardiac issues, high blood pressure and other (obesity, testicular hypofunction, MTHFR, hx. avulsion fracture ).Encounter Diagnosis: BMI 40.0-44.9, adult, Tobacco abuse, in remission (Renamed from Tobacco dependence in remission), Prediabetes, History of thrombophlebitis, MTHFR mutation, Talipes, Hyperlipidemia, mild, Testicular hypofunction, Chronic sinusitis, Benign essential hypertension, Inguinal hernia without obstruction or gangrene, AV fistula, Obesity, Avulsion fracture of calcaneus with nonunion, right, Alcohol dependence in sustained full remission, Screening for rubella, Encounter for hepatitis C virus screening test for high risk patient, Screening examination for infectious disease, Exposure to hepatitis C, History of pneumonia, Screening for measles [facility] Office Visit On: 21-Jul-2016 7:00 [facility] End: 01-Aug-2016 6:47 Office Visit On: 09-Jun-2016 9:11 Encounter Reason: Weight check - Doign diet and exerciseEncounter Diagnosis: BMI 40.0-44.9, adult End: 12-Jun-2016 8:30 [facility] Internal Medicine Office Visit On: 28-Apr-2016 8:18 Encounter Diagnosis: BMI 40.0-44.9, adult, Benign essential hypertension, Chronic sinusitis, AV fistula, Inguinal hernia without obstruction or gangrene, Testicular hypofunction, End: 28-Apr-2016 9:08 Tobacco abuse, in remission (Renamed from Tobacco dependence in remission), MTHFR mutation, History of thrombophlebitis, Hyperlipidemia, mild, Prediabetes, History of pneumonia, Obesity, Talipes, Avulsion fracture of calcaneus with nonunion, right, Exposure to hepatitis C, Alcohol dependence in sustained full remission, Encounter for hepatitis C virus screening test for high risk patient, Screening for rubella, Screening for measles, Screening examination for infectious disease [facility] Office Visit On: 24-Mar-2016 10:17 Encounter Reason: Follow up acute care visit - The patient feels the same. Patient has been compliant with instructions. Current medication use: no side effects, compliant with dosing regimen and considered effective by End: 24-Mar-2016 11:08 patient. Patient sleeps 7 hours per night. Impact of disease: emotional impact-mild. Nutrition: balanced diet and supplemental vitamins. The medical issues the patient is following up for include other (lifestyle changes ).Encounter Diagnosis: BMI 40.0-44.9, adult, Tobacco abuse, in remission (Renamed from Tobacco dependence in remission), Testicular hypofunction, History of thrombophlebitis, MTHFR mutation, Chronic sinusitis, Benign essential hypertension, Inguinal hernia without obstruction or gangrene, Prediabetes, Obesity, AV fistula, Avulsion fracture of calcaneus with nonunion, right, Talipes, Alcohol dependence in sustained full remission, Exposure to hepatitis C, Encounter for routine history and physical exam for male, Hyperlipidemia, mild, History of pneumonia, Pneumococcal vaccination given [facility] Office Visit On: 04-Feb-2016 6:30 Encounter Diagnosis: Encounter for routine history and physical exam for male, Tobacco abuse, in remission (Renamed from Tobacco dependence in remission), BMI 40.0- 44.9, adult, Chronic sinusitis, Benign essential hypertension, End: 04-Feb-2016 8:59 Inguinal hernia without obstruction or gangrene, Alcohol dependence in sustained full remission, Testicular hypofunction, History of thrombophlebitis, Obesity, AV fistula, MTHFR mutation, Avulsion fracture of calcaneus with nonunion, right, Talipes, Prediabetes [facility] Office Visit On: 24-Jul-2015 7:26 Encounter Reason: Physical male exam - Last seen between 1-3 months ago. General health: feels well with no complaints, has good energy level and is sleeping well. The patient's appetite is normal. Nutrition: normal/adeq End: 24-Jul-2015 8:35 uate. Exercises 0 days per week. Sleeps on average 6 hours per night. Normal bowel and bladder habits. Safety measures include appropriate use of safety belts and home smoke detectors. There are no curr ent emotional problems. The patient's libido is normal. Preventative measures done by patient are screening, colonoscopy (07-29) and PSA (07-16-15).Encounter Diagnosis: Encounter for routine history and physical exam for male, Tobacco abuse, in remission (Renamed from Tobacco dependence in remission), Alcohol dependence in sustained full remission, Testicular hypofunction, Inguinal hernia without obstruction or gangrene, AV fistula, Obesity, Chronic sinusitis, Benign essential hypertension, History of thrombophlebitis, Avulsion fracture of calcaneus with nonunion, right, Talipes, MTHFR mutation [facility] Refill Request On: 22-Jun-2015 17:18 Encounter Diagnosis: History of thrombophlebitis End: 22-Jun-2015 17:20 [facility] Historical Summary On: 18-Jun-2015 10:40 Encounter Diagnosis: Benign essential hypertension End: 18-Jun-2015 10:42 [facility] Office Visit On: 18-Jun-2015 9:15 Encounter Diagnosis: Avulsion fracture of calcaneus with nonunion, right, History of thrombophlebitis, MTHFR mutation, Benign essential hypertension, LVH (left ventricular hypertrophy) End: 18-Jun-2015 10:26 [facility] Office Visit On: 21-May-2015 7:22 Encounter Reason: Follow up acute care visit - The patient feels the same. Patient has been non-compliant with instructions. Current medication use: no side effects. Patient sleeps 7 hours per night. Impact of disease: e End: 21-May-2015 8:10 motional impact-mild. Nutrition: inappropriate diet and poor nutrition. The medical issues the patient is following up for include other (obesity, has decided he does not need pills to lose weight, he needs to do it on his own, per Dr. Bear last note he is to repeat doppler in September, and fu then, and he also rec. weight loss ).Encounter Diagnosis: Obesity, Tobacco abuse, in remission (Renamed from Tobacco dependence in remission), Decreased sexual response, Avulsion fracture of calcaneus with nonunion, right, Alcohol dependence in sustained full remission, Inguinal hernia without obstruction or gangrene, MTHFR mutation, Talipes, History of thrombophlebitis, Testicular hypofunction, Chronic sinusitis, AV fistula, Benign essential hypertension, Encounter for routine history and physical exam for male [facility] Office Visit On: 23-Jan-2015 6:55 Encounter Reason: Follow up for chronic medical issues - The patient feels well with no complaints, has good energy level and is sleeping well. Patient has been compliant with instructions. Current medication use: no bryson End: 23-Jan-2015 7:21 e effects, compliant with dosing regimen and considered effective by patient. Patient sleeps 7 hours per night. Impact of disease: emotional impact-mild. Nutrition: balanced diet and supplemental vitami ns. The medical issues the patient is following up for include cardiac issues and other (obesity, hx. avulsion fracture, erectile dysfunction, MTHFR factor, testicular hypofunction ).Encounter Diagnosis: Avulsion fracture of calcaneus with nonunion, right, Benign Essential Hypertension (401.1), Obesity (278.00), Chronic sinusitis (473.9), Testicular hypofunction (257.2), Personal history of thrombophlebitis (V12.52), AV fistula, Talipes, Inguinal hernia without obstruction or gangrene, MTHFR mutation, Alcohol dependence in sustained full remission, Decreased sexual response [facility] Office Visit On: 25-Aug-2014 8:23 Encounter Reason: FormsEncounter Diagnosis: Pre-operative examination, unspecified (V72.84), AV fistula, Benign Essential Hypertension (401.1), Obesity (278.00) End: 25-Aug-2014 8:48 [facility] Office Visit On: 03-Jul-2014 6:59 Encounter Reason: Follow up, Diagnostic Procedure Results - Diagnostic tests include other (labs ). Date: (06-27-14). Current symptoms include other (continues with issues wuth left foot, going back into surgery on Monday with Dr. Bear ). 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52), Rash (782.1), Well Male Exam (V70.0) End: 28-Mar-2014 9:46 [facility] Office Visit On: 03-Jan-2014 7:29 Encounter Reason: Follow up for chronic medical issues - The patient feels well with minor complaints (right leg and foot), has good energy level and is sleeping well. Patient has been compliant with instructions. Osiris End: 03-Jan-2014 8:09 t medication use: no side effects and compliant with dosing regimen. Patient sleeps 7 hours per night. 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), Benign Essential Hypertension (401.1), Unilateral or unspecified inguinal hernia, without mention of obstruction or gangrene (550.90), Personal history of thrombosis of leg (V12.51), Obesity (278.00), DYSFUNCTION, INHIBITED SEXUAL EXCITEMENT (302.72), AV fistula, Well Male Exam (V70.0) [facility] Phone Encounter On: 29-Aug-2013 11:05 [facility] End: 29-Aug-2013 11:07 Office Visit On: 24-May-2013 8:32 Encounter Diagnosis: Obesity (278.00), 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 The surgeon for the procedure will be Dr Blackwell. Recent symptoms do not include fever, chills, fatigue, chest pain, cough, dyspnea, dysur End: 26-Feb-2013 9:55 ia, urinary frequency, nausea, vomiting, diarrhea, abdominal pain, easy bruising, lower extremity swelling or poor exercise tolerance. Pertinent medical history includes prior anesthesia and thromboembo lic problems (hx of dvt and thrombophlebitis -- also htn and MTHFR), while pertinent medical history does not include previous anesthesia reaction. Pertinent family history includes myocardial infarctio n (grandfather - maternal), stroke (Grandfather -- pathernal) and aneurysm (Father), while pertinent family history does not include anesthesia reaction, sudden , clotting disorder (UNCERTAIN) or b leeding disorder. Pertinent social history includes nonsteroidal anti-inflammatory drug use (just prn) and concerns regarding care after surgery (Has had complications from previous surgery and also con erned with no weight and elevate foot -- and ended up w blood clot), while pertinent social history does not include aspirin use, tobacco use, alcohol use, illicit drug use, transfusion refusal or weari ng dentures or partial plates. 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 Encounter Diagnosis: DVT (453.42), End: 18-Dec-2012 8:45 Benign Essential Hypertension (401.1), Obesity (278.00) [facility] Office Visit On: 26-Nov-2012 9:33 Encounter Diagnosis: Other general medical examination for administrative purposes (V70.3), Hematuria, unspecified (599.70), Benign Essential Hypertension (401.1) End: 26-Nov-2012 10:26 [facility] Office Visit On: 19-Nov-2012 10:36 Encounter Diagnosis: Talipes, unspecified (754.70) End: 19-Nov-2012 11:53 [facility] Office Visit On: 27-Jul-2012 6:58 Encounter Reason: Follow up for chronic medical issues - The patient feels well with minor complaints (DVT), has decreased energy level and is sleeping well. Patient has been compliant with instructions. Current medicati End: 27-Jul-2012 8:30 on use: no side effects, compliant with dosing regimen and considered effective by patient. Patient sleeps 8 hours per night. Nutrition: balanced diet (attempted). The medical issues the patient is foll owing up for include All identified problems below, high blood pressure and other (DVT, obesity).Encounter Diagnosis: MTHFR (methylene THF reductase) deficiency and homocystinuria (270.4), Talipes, unspecified (754.70), Other and unspecified alcohol dependence, unspecified drinking behavior (303.90), Low HDL (272.5), Alcoholism in remission (303.93), Personal history of thrombosis of leg (V12.51), Obesity (278.00), Well Male Exam (V70.0), Testicular hypofunction (257.2), Elevated Blood Pressure without diagnosis of Hypertension (796.2) [facility] Office Visit On: 18-Jun-2012 8:31 Encounter Reason: Follow up tests - Date: (May 2012).Encounter Diagnosis: MTHFR (methylene THF reductase) deficiency and homocystinuria (270.4), Rash (782.1), Obesity (278.00), Personal history of thrombophlebitis (V12.52), End: 18-Jun-2012 9:13 Talipes, unspecified (754.70) [facility] Prescription Refill On: 29-May-2012 17:02 Encounter Diagnosis: DVT (453.42) End: 29-May-2012 17:18 [facility] Office Visit On: 27-Mar-2012 7:47 Encounter Reason: Follow up for chronic medical issues - The patient feels well with minor complaints (DVT), has decreased energy level and is sleeping well. Patient has been compliant with instructions. Current medicati End: 27-Mar-2012 9:10 on use: no side effects, compliant with dosing regimen and considered effective by patient. Patient sleeps 8 hours per night. Nutrition: balanced diet (attempted). The medical issues the patient is foll owing up for include All identified problems below, high blood pressure and other (DVT, obesity).Encounter Diagnosis: Talipes, unspecified (754.70), DVT (453.42), Testicular hypofunction (257.2), Chronic sinusitis (473.9) [facility] Office Visit On: 22-Mar-2012 9:24 Encounter Diagnosis: Talipes, unspecified (754.70), Obesity (278.00), DVT (453.42), Rash (782.1) End: 22-Mar-2012 10:06 [facility] Office Visit On: 05-Jan-2012 11:35 Encounter Diagnosis: Well Male Exam (V70.0), DVT (453.42), Elevated Blood Pressure without diagnosis of Hypertension (796.2), Hematuria, unspecified (599.70) End: 05-Jan-2012 12:11 [facility] Phone Encounter On: 05-Dec-2011 8:59 Encounter Diagnosis: Low HDL (272.5), Well Male Exam (V70.0) End: 05-Dec-2011 9:02 [facility] Office Visit On: 04-Oct-2011 12:07 Encounter Diagnosis: Talipes, unspecified (754.70), Unspecified disorder of male genital organs (608.9) End: 07-Oct-2011 6:26 [facility] Phone Encounter On: 22-Sep-2011 15:07 [facility] End: 22-Sep-2011 15:09 Office Visit On: 04-Aug-2011 7:34 Encounter Reason: Follow up tests - Diagnostic tests include other (labs ). Date: (07-12-11).Encounter Diagnosis: Obesity (278.00), Low HDL (272.5), DVT (453.42), Elevated Blood Pressure without diagnosis of Hypertension (796.2), End: 04-Aug-2011 8:13 Talipes, unspecified (754.70), Hematuria, unspecified (599.70), Other and unspecified alcohol dependence, unspecified drinking behavior (303.90), Well Male Exam (V70.0) [facility] Phone Encounter On: 12-Jul-2011 14:51 [facility] End: 12-Jul-2011 14:52 Phone Encounter On: 31-May-2011 16:54 [facility] End: 31-May-2011 16:58 Office Visit On: 06-May-2011 8:09 Encounter Diagnosis: Ingrowing nail (703.0) End: 06-May-2011 8:45 [facility] Phone Encounter On: 02-May-2011 13:32 [facility] End: 02-May-2011 13:35 Office Visit On: 03-Feb-2011 11:45 Encounter Diagnosis: Foot pain (729.5) End: 03-Feb-2011 12:24 [facility] Office Visit On: 20-Jan-2011 8:11 Encounter Reason: Injections - The medication the patient is here to receive is other (flu).Encounter Diagnosis: Need for prophylactic vaccination and inoculation against influenza (V04.81) End: 21-Jan-2011 7:04 [facility] Office Visit On: 04-Jan-2011 8:25 Encounter Diagnosis: Testicular hypofunction (257.2), Abnormal blood chemistry (790.6), Elevated Blood Pressure without diagnosis of Hypertension (796.2), DVT (453.42), Foot pain (729.5), Low HDL (272.5) End: 04-Jan-2011 9:03 [facility] Office Visit On: 16-Dec-2010 10:40 Encounter Diagnosis: Foot pain (729.5), Testicular hypofunction (257.2) End: 16-Dec-2010 11:34 [facility] Office Visit On: 04-Nov-2010 9:24 Encounter Reason: Follow up acute care visit - The patient feeling better since last seen (progress each week). Patient has been compliant with instructions. Current medication use: experiencing side effects (coumadin, d End: 04-Nov-2010 10:19 epending on what I have eaten, I get little lightheaded or dizzy. I take it around 4 pm and an hour or so later it happens when I sit up but it only lasts a short time. Just sometimes) and compliant with dosing regimen. Patient sleeps 6 hours per night. The medical issues the patient is following up for include other (dvt and testicular hypofunction).Encounter Diagnosis: DVT (453.42), Testicular hypofunction (257.2), Elevated Blood Pressure without diagnosis of Hypertension (796.2) [facility] Phone Encounter On: 15-Oct-2010 13:20 Encounter Diagnosis: DVT (453.42) End: 15-Oct-2010 13:21 [facility] Phone Encounter On: 07-Oct-2010 14:50 [facility] End: 07-Oct-2010 14:52 Phone Encounter On: 17-Sep-2010 12:13 Encounter Diagnosis: Testicular hypofunction (257.2) End: 17-Sep-2010 12:15 [facility] Annotation/Addendum On: 16-Sep-2010 9:02 Encounter Diagnosis: Hematuria, unspecified (599.70) End: 16-Sep-2010 9:23 [facility] Office Visit On: 16-Sep-2010 8:05 Encounter Reason: Follow up, Laboratory Test Results - Lab results: abnormal blood chemistry. Date: (09-02-10). Current symptoms/reason for visit include/s Follow up visit with no current symptoms.Encounter Diagnosis: Testicular hypofunction (257.2), End: 16-Sep-2010 8:40 DVT (453.42) [facility] Office Visit On: 02-Sep-2010 8:26 Encounter Reason: Follow up for chronic medical issues - The patient feels well with minor complaints (DVT), has decreased energy level and is sleeping well. Patient has been compliant with instructions. Current medicati End: 02-Sep-2010 9:26 on use: no side effects, compliant with dosing regimen and considered effective by patient. Patient sleeps 8 hours per night. Nutrition: balanced diet (attempted). The medical issues the patient is foll owing up for include All identified problems below, high blood pressure and other (DVT, obesity).Encounter Diagnosis: DVT (453.42), Foot pain (729.5), Elevated Blood Pressure without diagnosis of Hypertension (796.2), Obesity (278.00), Well Male Exam (V70.0), DYSFUNCTION, INHIBITED SEXUAL EXCITEMENT (302.72), Hematuria, unspecified (599.70) [facility] Phone Encounter On: 13-Aug-2010 14:08 Encounter Diagnosis: Unspecified Diagnosis End: 13-Aug-2010 14:14 [facility] Erroneous Entry On: 13-Aug-2010 9:02 Encounter Diagnosis: DVT (453.42) End: 13-Aug-2010 9:09 [facility] Annotation/Addendum On: 05-Aug-2010 13:53 Encounter Diagnosis: DVT (453.42) End: 05-Aug-2010 13:59 [facility] Office Visit On: 02-Aug-2010 15:25 Encounter Reason: Follow up hospital - Reason for ER visit: note: (DVT ). The patient feels well with minor complaints and has decreased energy level. Patient has been compliant with instructions. Current medication use: End: 02-Aug-2010 15:54 no side effects and compliant with dosing regimen. Patient sleeps 7 hours per night. Impact of disease: emotional impact-mild. Nutrition: balanced diet and supplemental vitamins.Encounter Diagnosis: DVT (453.42) [facility] Office Visit On: 08-Jun-2010 8:54 Encounter Reason: Preoperative evaluation - The patient feels well with minor complaints, has good energy level and is sleeping well. Surgical procedures include: other (right foot repair ). Date of procedure: (06-15-10 End: 08-Jun-2010 9:30 . [facility] ) . There have been no problems with general anesthesia or blood/blood products. Note for Preoperative evaluation: pt having alot foot pain when ever up on it. having surgery 06-15-10. will be in cast for 3 months and then 2 months in boot. no weight on it for first 3 months. no complications with surgery in past. no infection signs and symptoms now. no chest pain , sob or exercise intolerance. Encounter Diagnosis: Pre-operative examination, unspecified (V72.84), Foot pain (729.5), Obesity (278.00), Elevated Blood Pressure without diagnosis of Hypertension (796.2) [facility] Office Visit On: 04-May-2010 8:22 Encounter Diagnosis: Foot pain (729.5), Obesity (278.00) End: 04-May-2010 8:48 [facility] Office Visit On: 11-Feb-2010 14:05 Encounter Reason: Follow up Hypertension - The symptoms have been associated with anxiety, excessive caffeine intake (on weekends), family history of hypertension (father) and obesity.Encounter Diagnosis: End: 11-Feb-2010 14:37 Elevated Blood Pressure without diagnosis of Hypertension (796.2), Obesity (278.00) [facility] Office Visit On: 08-Feb-2010 15:15 Encounter Reason: Physical male exam - Last seen between 1-3 months ago (8 weeks ago). General health: feels well with no complaints, has good energy level and is sleeping well. The patient's appetite is normal. Nutritio End: 08-Feb-2010 15:49 n: supplemental vitamins & iron. Exercises 5 days per week. Sleeps on average 5 hours per night. Safety measures include appropriate use of safety belts, appropriate use of helmets, counseling regar ding safe sex/HIV and home smoke detectors. The patient's libido is decreased. Preventative measures done by patient are screening, fecal occult blood (July 25), screening, visual acuity (January) , TB skin testing (within 2 years), PSA (July 25) and rectal exam ().Encounter Diagnosis: Obesity (278.00), Elevated Blood Pressure without diagnosis of Hypertension (796.2), Other and unspecified alcohol dependence, unspecified drinking behavior (303.90), Low HDL (272.5), Well Male Exam (V70.0), DYSFUNCTION, INHIBITED SEXUAL EXCITEMENT (302.72), Hematuria, unspecified (599.70) [facility] Office Visit On: 17-Nov-2009 12:48 Encounter Reason: Forms - The patient presents to the office to be evaluate for DOT form (see scanned in form filled out). Encounter Diagnosis: Other general medical examination for administrative purposes (V70.3), End: 17-Nov-2009 14:09 Elevated Blood Pressure without diagnosis of Hypertension (796.2) [facility] Office Visit On: 01-Sep-2009 15:39 Encounter Reason: Follow up for chronic medical issues - The patient feels well with minor complaints ,has good energy level and is sleeping well. Patient has been compliant with instructions. Patient sleeps 8 hours per End: 05-Sep-2009 10:02 night. Impact of disease: emotional impact-mild. Nutrition: balanced diet and supplemental vitamins. The medical issues the patient is following up for include other (obesity, Hx. of alcohol abuse, low hdl, hx. hematuria). Encounter Diagnosis: Obesity (278.00), Low HDL (272.5), Other and unspecified alcohol dependence, unspecified drinking behavior (303.90), Chronic sinusitis (473.9), Well Male Exam (V70.0) [facility] Admission Note On: 31-Mar-2009 15:21 Encounter Diagnosis: Unilateral or unspecified inguinal hernia, without mention of obstruction or gangrene (550.90) End: 31-Mar-2009 15:22 [facility] Office Visit On: 31-Mar-2009 15:06 [facility] End: 31-Mar-2009 15:19 Office Visit On: 09-Jan-2009 11:09 Encounter Diagnosis: Hematuria, unspecified (599.70) End: 09-Jan-2009 15:44 [facility] Office Visit On: 24-Sep-2008 7:57 Encounter Reason: Urinary problems - There has been associated blood in urine. Encounter Diagnosis: Hematuria, unspecified (599.70) End: 24-Sep-2008 8:26 [facility] Office Visit On: 18-Aug-2008 15:00 Encounter Diagnosis: Other general medical examination for administrative purposes (V70.3) End: 18-Aug-2008 15:27 [facility] Office Visit On: 28-Jul-2008 15:38 Encounter Reason: Follow up for chronic medical issues - The patient feels well with minor complaints ,has good energy level and is sleeping well. Patient has been compliant with instructions. Patient sleeps 7 hours per End: 28-Jul-2008 16:16 night. Impact of disease: emotional impact-mild. Nutrition: balanced diet. The medical issues the patient is following up for include other (obesity, hx. inguinal hernia ). Encounter Diagnosis: Obesity (278.00), Low HDL (272.5), Other and unspecified alcohol dependence, unspecified drinking behavior (303.90), [place], unspecified (754.70), Well Male Exam (V70.0), Sebaceous cyst (706.2), Unspecified disorder of skin and subcutaneous tissue (709.9), Unspecified disorder of male genital organs (608.9), Unilateral or unspecified inguinal hernia, without mention of obstruction or gangrene (550.90), Lesion-Unknown behavior (238.2), ganglion cyst, Actinic keratosis (702.0) [facility] Annotation/Addendum On: 11-Feb-2008 15:33 [facility] End: 11-Feb-2008 15:37 Office Visit On: 11-Feb-2008 15:06 Encounter Reason: Follow up for chronic medical issues - The patient feels well with minor complaints ,has good energy level and is sleeping well. Patient has been compliant with instructions. Patient sleeps 8 hours per End: 11-Feb-2008 15:33 night. Impact of disease: no overall impact. Nutrition: balanced diet. The medical issues the patient is following up for include other (obesity ). Encounter Diagnosis: Obesity (278.00), Tal[place], unspecified (754.70), Other and unspecified alcohol dependence, unspecified drinking behavior (303.90), Well Male Exam (V70.0) [facility] Office Visit On: 26-Nov-2007 16:03 Encounter Diagnosis: Lesion-Unknown behavior (238.2) End: 26-Nov-2007 16:48 [facility] Office Visit On: 06-Nov-2007 15:39 Encounter Diagnosis: Lesion-Unknown behavior (238.2), ganglion cyst End: 06-Nov-2007 15:56 [facility] Office Visit On: 24-Jul-2007 15:23 Encounter Reason: Follow up for chronic medical issues - The patient feels well with no complaints ,has good energy level and is sleeping well. Patient has been compliant with instructions. Current medication use: no bryson End: 24-Jul-2007 15:56 e effects ,compliant with dosing regimen and considered effective by patient. Patient sleeps 7 hours per night. Impact of disease: emotional impact-mild. Nutrition: balanced diet. The medical issues the patient is following up for include other (obesity ). Encounter Diagnosis: Well Male Exam (V70.0), Other and unspecified alcohol dependence, unspecified drinking behavior (303.90), Obesity (278.00) [facility] Office Visit On: 28-Jul-2006 13:40 Encounter Reason: Physical male exam - Last seen between 6-12 months ago. General health: feels well with no complaints ,has good energy level and is sleeping well. The patient's appetite is normal. Nutrition: normal/reji End: 28-Jul-2006 14:25 quate. Exercises 0 days per week. Sleeps on average 6 hours per night. Normal bowel and bladder habits. Safety measures include appropriate use of safety belts and home smoke detectors. There are no cur rent emotional problems. The patient's libido is normal. Preventative measures done by patient are PSA (2006). Encounter Diagnosis: Well Male Exam (V70.0), Actinic keratosis (702.0), Lesion-Unknown behavior (238.2), Obesity (278.00), Sebaceous cyst (706.2), Tal[place], unspecified (754.70), Unilateral or unspecified inguinal hernia, without mention of obstruction or gangrene (550.90), Other and unspecified alcohol dependence, unspecified drinking behavior (303.90), Unspecified disorder of skin and subcutaneous tissue (709.9), Unspecified disorder of male genital organs (608.9) [facility] Office Visit On: 22-Mar-2006 15:44 Encounter Reason: Ear infection - The onset of the ear infection has been gradual and has been occurring in an intermittent pattern for 1 years. The course has been constant. The ear infection is described as mild (Right End: 22-Mar-2006 16:38 ear spot geting bigger and swollen at time.). Encounter Diagnosis: Lesion-Unknown behavior (238.2) [facility] Historical Summary On: 20-Mar-2006 11:18 [facility] End: 20-Mar-2006 11:31 Payers Raji garcia guarantor
--- OUTSIDE RECORDS SUMMARY | 2018-05-12 14:35 | XMS RPT_ITS | Continuity of Care Document ---
:1960 Author Organization [facility] Address [address] [place] [address] Phone Care Team Providers Name Role Phone Chelsey Pritchett MD Unavailable Dr. Clemente Flynn Unavailable Tien Jones Unavailable Dr. Hunter Mayers Unavailable Dr. Diallo Jacobo Unavailable Zeeshan ADJUNCT POLITICAL SCIENCE INSTRUCTOR, Rina L Unavailable Unavailable Ryan LEON, Tessy Unavailable SARIKA Nolan Unavailable Unavailable Unavailable Unavailable Problems Name Dates Details Abnormal blood sugar (R73.09, 790.29) Comments: went as high 6.1. 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 need eye check. dentistplan removal teeth 4-18 Status: Active Foot pain, left (M79.672, 729.5) Comments: ? Mortons neuroma suggest xray to assure no fracture, and referal to provider relations specialist for insert Status: Active History of pneumonia [...] carbs. is trying to eat earlier in [id number] HS. started 40's over 200. Status: Active Rash (R21, 782.1) Comments: rt ? from compression sock ( sigvaris XL) and swelling vs other, changing compression hose Status: Active Screening for prostate cancer (Z12.5, [...] Quantity: 30 {Tablet} Refills: 6 Ordered:27-Dec-2017 Fast Bambi GILLESPIE Start : 27-Dec-2017 Active Multivitamin Oral Tablet 1 (one) qd Active Nystatin 537995 UNIT/GM External Cream uad Cream bid to affected area(s) for 0 days Quantity: 1 {Tube} Refills: 3 Ordered:22-Dec-2017 CiBetty martins CNP Start : 22-Dec-2017 Active VIAGRA, 50MG (Oral Tablet) 1 Tablet [...] Comments:didnt feel well with it -- FRAGMIN, 21273AMRT/0.5ML (Subcutaneous Injectable) uad 20006 units bid (92229 UNIT/0.5ML) Inactive FRAGMIN, 11486GEKP/0.5ML (Subcutaneous Injectable) 1 Injectable bid for 2 days Quantity: 4 {Injectable} Refills: 0 Ordered:05-Aug-2010 SARIKA Nolan Start : 05-Aug-2010 End : 07-Aug-2010 Inactive Lipitor 10 MG Oral Tablet 1 (one) Tablet at night for 0 days Quantity: 30 {Tablet} Refills: 4 Ordered:06-Jul-2017 Shreyas PURDY, Chelsey Guzman MD Start : 06-Jul-2017 End : 06-Jul-2017 Inactive Comments:does not like the side effects MULTI FOR HIM (Oral Tablet) 1 qd for 0 days Refills: 0 Ordered:12-Apr-2013 SARIKA Nolan End : 12-Apr-2013 Inactive Olmesartan Medoxomil 40 MG Oral Tablet 1 (one) Tablet qd for 0 days Quantity: 30 {Tablet} Refills: 6 Ordered:27-Nov-2017 Chelsey Pritchett MD, MD, Dana M Start : 27-Nov-2017 End : 27-Nov-2017 Inactive Comments:per patient it has also been re called 11-27-17 Terbinafine HCl 1 % External Cream 1 (one) Application bid for 21 days Quantity: 1 {Tube} Refills: 0 Ordered:22-Dec-2017 Ryan LEONBetty E Start : 22-Dec-2017 End : 12-Jan-2018 Inactive [...] patient bx Status: Inactive as of 28-Jul-2008 Decreased sexual response (R68.82, 302.72) Status: Inactive [...] age group needs tested plus work with [employer]. Status: Resolved as of 06-Jul-2017 Foot pain [...] of coumadin and have inr planned in / week to check. 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 doppler -11-- better. that time not have anticaod after [...] heat worsen Status: Inactive as of 03-Jul-2014 Screening examination for infectious disease (Z11.9, V75.9) [...] Dr. 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-Dec-2017 Foot min 3 Views Result: Comments: See Note; NOTES: [facility] Imaging Services [address] [place] [address] Foot min 3 Views MR#: [id number] Acct: [id number] Name: KERA RAY JR Rep #: [id number] : 1960 M 57 From: Gricelda Weiss MD PCP: Chelsey Pritchett MD Status: REG CLI Study: Foot min 3 Views Date of Exam: 12/22/17 Exam# [id number] Ordering Dr: Betty Davis STUDY: X-RAY - [...] Weiss MD at 1:38 EDT Tel Direct: [phone], Service support , CC: Betty Davis PHILOSOPHY FACULTY; Chelsey Pritchett MD High School Music Director: Signed 27-Sep-2015 Venous Duplex Lower Extremity Result: Comments: See Note; NOTES: [facility] Cardiovascular Services [address] [place] [address] Venous Duplex US, Unilateral 09/21/15 0757 MR#: [id number] Acct: [id number] Name: KERA RAY JR Rep #: [id number] : 1960 55 From: Jorge L Vail [...] Dictated: 09/21/15 0757 Date Transcribed: 09/27/15 0947 High School Music Director: Signed Immunization Name Dates Details Influenza, preservative free, injectable Comments: 01-30 jeff mejiaeve Pneumococcal (2 years and up) on: Mar-2016 [...] Active Living Situation Comments: lives with , hinduism important Status: Active No Drug Use Status: [...] number DEMETRIA-DIRECT Negative (Normal) Comments: Performed at: [facility] [address] [id number] Director: Fidel Gamble PhD, Phone: [phone] :54 CBC W/Diff, Automated Comments: [facility] [address] [place], [place], [address] Absolute Lymph 1.81 {X10_3/ul} (Normal) Range: 0.83-4.51 [...] 4.6-6.2 WBC 10.0 K/mm3 (Normal) Range: 4.4-11.0 04-Txw-60623:54 Comprehensive Metabolic Profil Comments: [facility] [address] [place], [address] GAP 7 (Normal) Range: 5-15 CO2 27.0 [...] Comments: Please note revised GLUCOSE reference range gfhqidkcu99/02/2018. 98-Lmd-67401:54 CRP Comments: [facility] [address] [place], [id number] C-REACTIVE PROT 8.46 mg/L (Abnormal) Range: 0.0-3.0 Comments: C-Reactive Protein (CRP) provides useful information for thediagnosis, therapy and monitoring of inflammatory processesand associated diseases. For the evaluation of Relative Riskfor Cardiovascular Dise ase, a High Sensitivity CRP (HSCRP)should be ordered. :54 Erythrocyte Sed Rate Comments: [facility] [address] [place], [address] SED RATE 28 mm/h (Abnormal) Range: 0-20 :54 HLA B27 Negative (Normal) Comments: [facility] (refer to report for specific site)refer to report for address and phone number Comments: HLA-B*27 XntxhbgfY61 allele interpretation for all loci based on IMGT/HLAdatabase version 3.27This test was developed and its performance characteristicsdetermined by Drive. It has not been cleared o r approvedby the Food and Drug Administration.HLA Lab CLIA ID Number [id number] test was performed using PCR (Polymerase ChainReaction)/SSOP (Sequence Specific Oligonucleotide Probes)technique. SBT (Sequence Based Typing) and/or SSP(Sequence Specific Primers) may be used as supplementalmethods when necessary. Please contact HLA CustomerService at if you have any questions. Directo r of HLA Laboratory Dr Hermes Blair, PhDPerformed at: - [address] [id number] Director: Jacinto Pavon MD, Phone: [phone] at: [address] [place], [place] [id number] [place], [place] [id number] Director: Hermes Blair PhD, Phone: [phone] :54 Lyme Antibodies,W Blot Comments: [facility] (refer [...] positivity are those recommended byCDC/ASTPHLD. p23=Osp C, u64=xjdmurmpdIves:Sera from individuals with the following may cross [...] Ab Absent (Normal) P93 Ab Absent (Normal) 67-Evd-12336:54 Rheumatoid Factor Comments: [facility] Xpgxybeogz5986 [facility] [place], [address] RHEUMATOID FAC < 10.0 {IU/mL} (Normal) 11-Nhg-80395:54 Uric Acid Comments: [facility] Ghwltqwblp4257 [facility] [place], [address] URIC 6.1 mg/dL (Normal) Range: 3.5-7.2 Comments: The drugs N-Acetylcysteine and Metamizole may falselydepress this assay. :06 HgA1C , Office (12892) HgA1C , Office 5.6 % (Normal) Range: 4.6 - 7.1 85-Ndp-566206:03 HgA1C , Office (56313) HgA1C , Office 5.7 % (Normal) Range: 4.6 - 7.1 :16 HEPATIC FUNCTION PANEL Comments: PATIENT WAS FASTINGPERFORMED BY: [employer] [id number] BY: Intechra HoldingsHoly Name Medical CenterOfnoif5907 [facility] [id number] (51383) ALT (SGPT) 24 [iU]/L (Normal) Range: 0-44 AST (SGOT) 21 [iU]/L (Normal) Range: 0-40 Alkaline Phosphatase, S 98 [iU]/L (Normal) Range: 39-117 Bilirubin, Direct 0.09 mg/dL (Normal) Range: 0.00-0.40 Bilirubin, Total 0.3 mg/dL (Normal) Range: 0.0-1.2 Protein, Total, Serum 7.6 g/dL (Normal) Range: 6.0-8.5 :16 LIPOPROTEIN, BLD, BY NMR Comments: PATIENT WAS FASTINGPERFORMED BY: [employer] [address] [id number] BY: [place] Graphene ScienceHoly Name Medical CenterDotliz9368 [facility] [id number]; FU 07-06 (66017) LP-IR Score 65 (Abnormal) Comments: INSULIN RESISTANCE MARKER <--Insulin Sensitive Insulin Resistant--> Percentile in Reference PopulationInsulin Resistance ScoreLP-IR Score Low 25th 50th 75th High <27 27 45 63 >63LP-IR Score is inaccurate if patient is non-fasting. .The LP-IR score is a laboratory developed i [facility] that has beenassociated with insulin resistance and [...] were developed and their performance characteristicsdetermined by [employer]. These assays have not been cleared by [...] 1600 - 2000 Very High > 2000 24-Rgm-48393:16 Renal function Panel Comments: PATIENT WAS FASTINGPERFORMED BY: [facility] [address] [id number] BY: [facility] Npushd7359 [facility] [id number] (85933) Albumin, Serum 4.5 g/dL (Normal) Range: 3.5-5.5 [...] Glucose, Serum 94 mg/dL (Normal) Range: 65-99 96-Mev-242363:52 MICROALBUMIN: CREATININE RATIO Comments: PATIENT NOT FASTINGPERFORMED BY: Nekst6370 Osorio [facility] [id number] (55691) AND (55511) Microalb/Creat Ratio <2.6 {mg/g_creat} (Normal) Range: 0.0-30.0 Microalbumin, Urine <3.0 ug/mL (Normal) Creatinine, Urine 117.3 mg/dL (Normal) :52 URINALYSIS (65895) Comments: PATIENT NOT FASTINGPERFORMED BY: Nekst6370 CUVISM MAGAZINEFrye Regional Medical Center [facility] [id number] Microscopic Examination MICNIP (Normal) Comments: Microscopic not indicated and not performed. Nitrite, Urine Negative (Normal) Urobilinogen,Semi-Qn 0.2 mg/dL (Normal) Range: 0.2-1.0 Bilirubin Negative (Normal) Occult Blood Negative (Normal) Ketones Negative (Normal) Glucose Negative (Normal) Protein Negative (Normal) WBC Esterase Negative (Normal) Appearance Clear (Normal) Urine-Color Yellow (Normal) pH 5.0 (Normal) Range: 5.0-7.5 Specific [place] 1.022 (Normal) Range: 1.005-1.030 00-Cyy-522379:52 Metabolic Panel, Comprehensive Comments: PATIENT NOT FASTINGPERFORMED BY: Intechra HoldingsHoly Name Medical CenterNdvgjd6611 [facility] [id number] (76342) ALT (SGPT) 21 [iU]/L (Normal) Range: 0-44 [...] Glucose, Serum 92 mg/dL (Normal) Range: 65-99 55-Lhs-485082:52 CBC WITH MANUAL DIFF Comments: PATIENT NOT FASTINGPERFORMED BY: [employer] S[employer] TechnologyCorewell Health [facility] Hospital6370 [facility] [id number] Information: NURSE DRAW (33344) Immature Grans (Abs) 0.0 {x10E3/uL} (Normal) Range: [...] 4.14-5.80 WBC 9.3 {x10E3/uL} (Normal) Range: 3.4-10.8 38-Aep-060970:49 Microscopic Examination Comments: PATIENT WAS FASTINGPERFORMED BY: Nekst6370 [facility] Hospital [id number] Bacteria Few (Normal) Mucus Threads Present (Normal) Epithelial Cells (non renal) 0-10 {/hpf} (Normal) Range: 0 - 10 RBC 0-2 {/hpf} (Normal) Range: 0 - 2 WBC 0-5 {/hpf} (Normal) Range: 0 - 5 71-Qrz-262010:49 URINALYSIS, W/ MICRO (22214) Comments: PATIENT WAS FASTINGPERFORMED BY: [place]70 Osorio [facility] [id number] Microscopic Examination See below: (Normal) Comments: Microscopic was indicated and was performed. Microscopic Examination MICRON (Normal) Comments: Microscopic follows if indicated. Nitrite, Urine Negative (Normal) Urobilinogen,Semi-Qn 0.2 mg/dL (Normal) Range: 0.2-1.0 Bilirubin Negative (Normal) Occult Blood Negative (Normal) Ketones Negative (Normal) Glucose Negative (Normal) Protein Negative (Normal) WBC Esterase Negative (Normal) Appearance Clear (Normal) Urine-Color Yellow (Normal) pH 5.5 (Normal) Range: 5.0-7.5 Specific [place] 1.026 (Normal) Range: 1.005-1.030 76-Spy-810895:49 MICROALBUMIN URINE QUANT Comments: PATIENT WAS FASTINGPERFORMED BY: [employer]st6370 [facility] [id number] (82810) Microalb/Creat Ratio <1.7 {mg/g_creat} (Normal) Range: 0.0-30.0 Creatinine, Urine 178.3 mg/dL (Normal) Microalbumin, Urine <3.0 ug/mL (Normal) 65-Kgm-306739:49 CBC with auto diff (83017) Comments: PATIENT WAS FASTINGPERFORMED BY: [place]70 [facility] [id number] Immature Grans (Abs) 0.0 {x10E3/uL} (Normal) Range: [...] 4.14-5.80 WBC 9.2 {x10E3/uL} (Normal) Range: 3.4-10.8 61-Zac-459675:49 METABOLIC PANEL, COMPREHENSIVE Comments: now and in three months (approximately); PATIENT WAS FASTINGPERFORMED BY: LabCoHoly Name Medical CenterKcvvmg7909 [facility] [id number] (91714) ALT (SGPT) 20 [iU]/L (Normal) Range: 0-44 [...] (Normal) Range: 65-99 :38 HgA1C , Office (78286) HgA1C , Office 5.7 % (Normal) Range: 4.6 - 7.1 :38 Blood Glucose , Office (17450) Blood Glucose , Office 102 (Normal) :45 HgA1C , Office (72285) HgA1C , Office 5.3 % (Normal) Range: 4.6 - 7.1 :57 HEPATITIS C ANTIBODY (91044) Comments: PATIENT WAS FASTINGPERFORMED BY: [employer] Edfget9176 [facility] [id number] Hep C Virus Ab 0.1 {s/co_ratio} (Normal) Range: 0.0-0.9 Comments: Negative: < 0.8 Indeterminate: 0.8 - 0.9 Positive: > 0.9 . The CDC recommends that a positive HCV antibody result be followed up with a HCV Nucleic Acid Amplification test (405425). :57 RUBEOLA IgG (32223) Comments: PATIENT WAS FASTINGPERFORMED BY: Intechra HoldingsHoly Name Medical CenterIpoxub4243 [facility] [id number] Rubeola Ab, IgG 37.1 AU/mL (Normal) Comments: Negative <25.0 Equivocal 25.0 - 29.9 Positive >29.9 Presence of antibodies to Rubeola is presumptive evidence of immunity except when acute infection is suspected. :57 RUBELLA IgG (79507) Comments: PATIENT WAS FASTINGPERFORMED BY: [employer] [id number] Rubella Antibodies, IgG 16.30 {index} (Normal) Comments: Non-immune <0.90 Equivocal 0.90 - 0.99 Immune >0.99 :57 MUMPS IgG (86882) Comments: PATIENT WAS FASTINGPERFORMED BY: [facility] Sensing TechnologyCorewell Health [facility] Hospital6370 [facility] [id number] Mumps Abs, IgG 128.0 AU/mL (Normal) Comments: Negative <9.0 Equivocal 9.0 - 10.9 Positive >10.9 A positive result genera lly indicates past exposure to Mumps virus or previous vaccination. :53 MICROALBUMIN: CREATININE Comments: PATIENT WAS FASTINGPERFORMED BY: [employer] [id number] BY: [place] 5356470 [facility] [id number] RATIO (19718) AND (48655) Microalb/Creat Ratio <2.0 {mg/g_creat} (Normal) Range: 0.0-30.0 Microalbumin, Urine <3.0 ug/mL (Normal) Creatinine, Urine 148.5 mg/dL (Normal) :53 CBC with auto diff Comments: PATIENT WAS FASTINGPERFORMED BY: [employer] [id number] BY: [place] [id number] [facility] [id number] (89817) Immature Grans (Abs) 0.0 {x10E3/uL} (Normal) Range: [...] Comments: PATIENT WAS FASTINGPERFORMED BY: BN [facility] Bmlfzcklzk2147 [facility] [id number] BY: CB [facility] Hihqkd6758 [facility] [id number]; fu 4-13 db (57593) LP-IR Score 59 (Abnormal) Comments: INSULIN RESISTANCE MARKER <--Insulin Sensitive Insulin Resistant--> Percentile in Reference PopulationInsulin Resistance ScoreLP-IR Score Low 25th 50th 75th High <27 27 45 63 >63LP-IR Score is inaccurate if patient is non-fasting. .The LP-IR score is a laboratory developed i [facility] that has beenassociated with insulin resistance and [...] were developed and their performance characteristicsdetermined by [employer]. These assays have not been cleared by [...] 1600 - 2000 Very High > 2000 20-Yad-23502:53 PSA (PROSTATE SPECIFIC Comments: PATIENT WAS FASTINGPERFORMED BY: [facility] Ttukoxydck6253 [facility] [id number] BY: [facility] Ihxvsz1138 [facility] [id number] ANTIGEN) (V76.44) Prostate Specific Ag, 1.0 ng/mL (Normal) Range: 0.0-4.0 Serum Comments: [employer] methodology. .According to the [place] Urological Association, Serum PSA shoulddecrease and remain at undetectable levels after radicalprostatectomy. The AUA defines biochemical recurrence as an initialPSA value 0.2 ng/mL or greater followed by a subsequent confirmatoryPSA value 0.2 ng/mL or greater.Values obtained with d ifferent assay methods or kits cannot be usedinterchangeably. Results cannot be interpreted as absolute evidenceof the presence or absence of malignant disease. :51 CALCIFIDIOL (89640) VIT D 25 Comments: PATIENT WAS FASTINGPERFORMED BY: [place]70 CUVISM MAGAZINEFrye Regional Medical Center [facility] [id number] Vitamin D, 25-Hydroxy 32.7 ng/mL (Normal) Range: 30.0-100.0 Comments: Vitamin D deficiency has been defined by the [place] ofMedicine and an Endocrine Society practice guideline as alevel of serum 25-OH vitamin D less than 20 ng/mL (1,2).The Endocrine Society went on to further define vitamin Dinsufficiency as a level between 21 and 29 ng/mL (2).1. IOM ([place] of Medicine). 2010. Dietary reference intakes for calcium and D. [place]: The National AcademAcqua Tele[employer] Ltd Press.2. Seymour MF, Amalia VALENTIN, Alice ELIAS, et al. Evaluation, treatment, and prevention of vitamin D deficiency: an Endocrine Society clinical practice guideline. JCEM. 2010; 96(7):1911-30. :51 HGB A1C (85790) Comments: PATIENT WAS FASTINGPERFORMED BY: Nekst6370 [facility]UVISM MAGAZINEFrye Regional [facility] [id number] Hemoglobin A1c 5.9 % (Abnormal) Range: 4.8-5.6 Comments: . Pre-diabetes: 5.7 - 6.4 Diabetes: >6.4 Glycemic control for adults with diabetes: <7.0 :59 Microscopic Examination Comments: PATIENT WAS FASTINGPERFORMED BY: Nekst6370 CactusFrye Regional Medical Centerin [place] [id number] Bacteria None seen (Normal) Mucus Threads Present (Normal) Cast Type Hyaline casts (Normal) Casts Present {/lpf} (Abnormal) Epithelial Cells (non renal) 0-10 {/hpf} (Normal) Range: 0 - 10 RBC 0-2 {/hpf} (Normal) Range: 0 - 2 WBC 0-5 {/hpf} (Normal) Range: 0 - 5 :46 Metabolic Panel, Basic Comments: PATIENT NOT FASTINGPERFORMED BY: [place] Graphene ScienceHoly Name Medical CenterVqudir8925 [facility] [id number] Information: [id number] (96421) Calcium, Serum 9.5 mg/dL (Normal) Range: 8.7-10.2 [...] (Normal) Range: 65-99 :59 URINALYSIS, W/ MICRO (47926) Comments: PATIENT WAS FASTINGPERFORMED BY: organgir.amlin6370 [facility] [id number] Microscopic Examination See below: (Normal) Comments: Microscopic was indicated and was performed. Microscopic Examination MICRON (Normal) Comments: Microscopic follows if indicated. Nitrite, Urine Negative (Normal) Urobilinogen,Semi-Qn 0.2 mg/dL (Normal) Range: 0.2-1.0 Bilirubin Negative (Normal) Occult Blood Negative (Normal) Ketones Negative (Normal) Glucose Negative (Normal) Protein Negative (Normal) WBC Esterase Negative (Normal) Appearance Clear (Normal) Urine-Color Yellow (Normal) pH 6.0 (Normal) Range: 5.0-7.5 Specific [place] 1.023 (Normal) Range: 1.005-1.030 :59 METABOLIC PANEL, COMPREHENSIVE Comments: PATIENT WAS FASTINGPERFORMED BY: [place] Graphene ScienceHoly Name Medical CenterJjrvet0666 [facility] [id number] (37270) ALT (SGPT) 26 [iU]/L (Normal) Range: 0-44 [...] Glucose, Serum 93 mg/dL (Normal) Range: 65-99 31-Qej-68179:59 LIPID PANEL (41688) Comments: PATIENT WAS FASTINGPERFORMED BY: [facility]6370 [facility] [id number] LDL/HDL Ratio 2.8 {ratio_units} (Normal) Range: 0.0-3.6 [...] auto diff Comments: PATIENT WAS FASTINGPERFORMED BY: LARRY [employer] Jhsqkg9046 [facility] [id number] Information: [id number] (73750) Immature Grans (Abs) 0.0 {x10E3/uL} (Normal) Range: [...] (PROSTATE SPECIFIC Comments: PATIENT WAS FASTINGPERFORMED BY: Intechra HoldingsHoly Name Medical CenterKjbzax2142 [facility] [id number] ANTIGEN) (V76.44) Prostate Specific Ag, 0.7 ng/mL (Normal) Range: 0.0-4.0 Serum Comments: [employer] Pharm[employer]IA methodology. .According to the [place] Urological Association, Serum PSA shoulddecrease and remain at undetectable levels after radicalprostatectomy. The AUA defines biochemical recurrence as an initialPSA value 0.2 ng/mL or greater followed by a subsequent confirmatoryPSA value 0.2 ng/mL or greater.Values obtained with d ifferent assay methods or kits cannot be usedinterchangeably. Results cannot be interpreted as absolute evidenceof the presence or absence of malignant disease. 93-Vzh-33791:51 CBC W/Diff, Automated Comments: DR RAY ORDERED PT,PTT PLT,CRE AND BUNTest performed at:[facility] [address] [place], [place] [address] Absolute Lymph 2.19 {X10_3/ul} (Normal) Range: 0.83-4.51 [...] RAY ORDERED PT,PTT PLT,CRE AND BUNTest performed at:[facility] Gyvcajtmjt3495 [facility] [place] [address] GAP 6 (Normal) Range: 5-15 [...] RAY ORDERED PT,PTT PLT,CRE AND BUNTest performed at:[facility] [address]oyz[address] [place], [place] [id number] HEP C AB <0.1 {s/co_ratio} (Normal) Range: 0.0-0.9 Comments: Negative: < 0.8 Indeterminate: 0.8 - 0.9 Positive: > 0.9 In order to reduce the incidence of a false positive result, the CDC recommends that all s/co ratios between 1.0 and 10.9 be confirmed by a more specific supplemental or PCR testing. [facility] offers HCV Ab w/Reflex to Verification test #[id number]. :51 Lipid Profile Comments: DR RAY ORDERED PT,PTT PLT,CRE AND BUNTest performed at:[facility] Rimtrxdjkb2271 [facility]. [place], [place] [address] VLDL 21 mg/dL (Normal) Range: 5-40 LDL [...] RAY ORDERED PT,PTT PLT,CRE AND BUNTest performed at:[facility] Gnmkrzbjpb9876 [facility]. [place], [place] [id number] MUMPS IgM < 0.80 AU (Normal) Range: 0.00-0.79 Comments: Negative < 0.80 Borderline 0.80 - 1.20 Positive > 1.20Note: The presence of IgM specific antibody should beinterpreted in conjunction with the patient's clinicalhistory and exposure risk when an acute infection issuspected.Performed at: [address] [id number] Director: Meliton song PhD, Phone: [phone] at: [address] [id number] Director: Jacinto Pavon MD, Phone: [phone] :51 Mumps Antibody,IgG Comments: DR RAY ORDERED PT,PTT PLT,CRE AND BUNTest performed at:[facility] [address] [place], [place] [id number] MUMPS,IgG 147.0 AU/mL (Normal) Comments: Negative <9.0 Equivocal 9.0 - 10.9 Positive >10.9A positive result generally indicates past exposure toMumps virus or previous vaccination.Performed at: [facility] Lab[address] [id number] Director: Meliton Kaminski PhD, Phone: [phone] :[phone] Partial Thromboplast Time Comments: DR RAY ORDERED PT,PTT PLT,CRE AND BUNTest performed at:[facility] [address] [place] [address] PTT 29.9 s (Normal) Range: 24.1-36.2 :51 Prothrombin Time w/INR Comments: DR RAY ORDERED PT,PTT PLT,CRE AND BUNTest performed at:[facility] [address] [place], [place] [id number] INR 1.0 (Normal) PROTIME 13.3 s (Normal) Range: 11.7-14.9 :51 PSA,Total - Annual Screen Comments: DR RAY ORDERED PT,PTT PLT,CRE AND BUNTest performed at:[facility] [address] [place], [place] [id number] PSA,TOT SCREEN 0.69 ng/mL (Normal) Range: 0.00-4.00 Comments: This test was performed using the TPSA assay method for the[facility] chemistry system. Values obtained with differentassay methods cannot be used interchangably.When changing PSA assays in the course of monitoring apatient, additional sequential testing should be carriedout to confirm baseline values. :51 Rubella IgG > 500.0 {IU/mL} Comments: DR RAY ORDERED PT,PTT PLT,CRE AND BUNTest performed at:[facility] [address] [place], [place] [id number] (Normal) Comments: Antibody results Interpretation of Immune Status < 5 IU/ml Presumed Non-immune 5 - < 10 IU/ml Equivocal > or = 10 IU/ml Presumed Immune :51 Rubeola IgG Ab Comments: DR RAY ORDERED PT,PTT PLT,CRE AND BUNTest performed at:[facility] [address] [place] [address] RUBEOLA 36981 37.2 AU/mL (Normal) Comments: Negative <25.0 Equivocal 25.0 - 29.9 Positive >29.9Presence of antibodies to Rubeola is presumptive evidenceof immunity except when acute infection is suspected. 72-Nak-18030:51 Rubeola IgG Ab Comments: DR RAY ORDERED PT,PTT PLT,CRE AND BUNTest performed at:[facility] [address] [place] [address] RUBEOLA 26981 37.2 AU/mL (Normal) Comments: Negative <25.0 Equivocal 25.0 - 29.9 Positive >29.9Presence of antibodies to Rubeola is presumptive evidenceof immunity except when acute infection is suspected. :51 Urinalysis, Complete Comments: DR RAY ORDERED PT,PTT PLT,CRE AND BUNHow was Urine Obtained? CLEAN CATCHTest performed at:[facility] [address] [place] [address] MUCUS, URINE 0 SEEN {/hpf} (Normal) BACTERIA [...] PANEL, COMPREHENSIVE Comments: PATIENT WAS FASTINGPERFORMED BY: [place] Osorio [facility] [id number] ([id number]) ALT (SGPT) 17 [iU]/L (Normal) Range: 0-44 [...] mg/dL (Normal) Range: 65-99 :20 LIPID PANEL (94596) Comments: PATIENT WAS FASTINGPERFORMED BY: [place]70 [facility] [id number] LDL/HDL Ratio 2.4 {ratio_units} (Normal) Range: 0.0-3.6 LDL Cholesterol Calc 110 mg/dL (Abnormal) Range: 0-99 VLDL Cholesterol Yimi 24 mg/dL (Normal) Range: 5-40 HDL Cholesterol 46 mg/dL (Normal) Comments: According to ATP-III Guidelines, HDL-C >59 mg/dL is considered anegative risk factor for CHD. Triglycerides 121 mg/dL (Normal) Range: 0-149 Cholesterol, Total 180 mg/dL (Normal) Range: 100-199 26-Sqm-11954:20 CBC WITH MANUAL DIFF Comments: PATIENT WAS FASTINGPERFORMED BY: LabCoHoly Name Medical CenterEchdbc2747 [facility] [id number] Information: [id number] ([id number]) Immature Grans (Abs) 0.0 {x10E3/uL} (Normal) Range: [...] 4.14-5.80 WBC 8.2 {x10E3/uL} (Normal) Range: 3.4-10.8 71-Fuh-419215:06 METABOLIC PANEL, COMPREHENSIVE Comments: PATIENT NOT FASTINGPERFORMED BY: [employer] Prdsuu6188 [facility] [id number] ([id number]) ALT (SGPT) 28 [iU]/L (Normal) Range: 0-44 [...] Glucose, Serum 79 mg/dL (Normal) Range: 65-99 61-Jxc-601285:06 CBC WITH MANUAL DIFF Comments: PATIENT NOT FASTINGPERFORMED BY: [employer] TechnologyCorewell Health Green[facility] Hospital6370 [facility] [id number] Information: [id number] (24086) Immature Grans (Abs) 0.0 {x10E3/uL} (Normal) Range: [...] 4.14-5.80 WBC 10.1 {x10E3/uL} (Normal) Range: 3.4-10.8 46-Yyd-35181:52 Metabolic Panel, Basic Comments: PATIENT NOT FASTINGPERFORMED BY: LabCoHoly Name Medical CenterOyirvb9819 [facility] [id number] Information: [id number] ([id number]) Calcium, Serum 9.7 mg/dL (Normal) Range: 8.7-10.2 [...] Glucose, Serum 91 mg/dL (Normal) Range: 65-99 61-Car-04889:35 Urinalysis, Office (06513) UA - BILIRUBIN Negative (Normal) UA - BLOOD Hemolyzed Small (Normal) UA - GLUCOSE Negative (Normal) UA - KETONES Negative mg/dL (Normal) UA - LEUKOCYTE ESTERASE Negative (Normal) UA - NITRITE Negative (Normal) UA - PH 5.0 (Normal) UA - PROTEIN Negative mg/dL (Normal) UA - SPECIFIC GRAVITY 1.025 (Normal) URINE UROBILINGN YESSI TIMED 2 mg/dL (Normal) 66-Juz-09565:25 PT (Prothrobim Time) Comments: standing order; PATIENT NOT FASTINGPERFORMED BY: [place] [employer]rap[employer] ScienceHoly Name Medical CenterOnvrre5804 [facility] [id number] Information: [id number] ([id number]) Prothrombin Time 25.4 {sec} (Abnormal) Range: 9.1-12.0 INR 2.5 (Abnormal) Range: 0.8-1.2 Comments: Reference interval is for non-anticoagulated patients. . Suggested INR therapeutic range for Vitamin K anta gonist therapy: Standard Dose (moderate intensity therapeutic range): 2.0 - 3.0 Higher intensity therapeutic range 2.5 - 3.5 81-Vms-815555:15 PT (Prothrobim Time) Comments: standing order; PATIENT NOT FASTINGPERFORMED BY: Ac[facility] Sensing TechnologyCorewell Health Greenville Hospital6370 [facility] [id number] Information: [id number] ([id number]) Prothrombin Time 18.3 {sec} (Abnormal) Range: 9.1-12.0 INR 1.8 (Abnormal) Range: 0.8-1.2 Comments: Reference interval is for non-anticoagulated patients. . Suggested INR therapeutic range for Vitamin K anta gonist therapy: Standard Dose (moderate intensity therapeutic range): 2.0 - 3.0 Higher intensity therapeutic range 2.5 - 3.5 87-Rkk-35615:54 PT (Prothrobim Time) Comments: standing order; PATIENT NOT FASTINGPERFORMED BY: LARRY [facility]6370 [facility] [id number] Information: [id number] ([id number]) Prothrombin Time 29.6 {sec} (Abnormal) Range: 9.1-12.0 INR 2.9 (Abnormal) Range: 0.8-1.2 Comments: Reference interval is for non-anticoagulated patients. . Suggested INR therapeutic range for Vitamin K anta gonist therapy: Standard Dose (moderate intensity therapeutic range): 2.0 - 3.0 Higher intensity therapeutic range 2.5 - 3.5 52-Erm-300456:00 PT (Prothrobim Time) Comments: standing order; PATIENT NOT FASTINGPERFORMED BY: [facility] Diegolin6370 [facility] [id number] Information: [id number] ([id number]) Prothrombin Time 29.7 {sec} (Abnormal) Range: 9.1-12.0 INR 2.9 (Abnormal) Range: 0.8-1.2 Comments: Reference interval is for non-anticoagulated patients. . Suggested INR therapeutic range for Vitamin K anta gonist therapy: Standard Dose (moderate intensity therapeutic range): 2.0 - 3.0 Higher intensity therapeutic range 2.5 - 3.5 34-Oeo-001886:43 Urinalysis, Office (27089) UA - BILIRUBIN Negative (Normal) UA - BLOOD Hemolyzed Moderate (Normal) UA - GLUCOSE Negative (Normal) UA - KETONES Negative mg/dL (Normal) UA - LEUKOCYTE ESTERASE Negative (Normal) UA - NITRITE Negative (Normal) UA - PH 6.0 (Normal) UA - PROTEIN Negative mg/dL (Normal) UA - SPECIFIC GRAVITY 1.025 (Normal) URINE UROBILINGN YESSI TIMED 2 mg/dL (Normal) 86-Znj-769722:42 Prothrombin Time (PT) Comments: PERFORMED BY: [employer] TechnologyPemiscot Memorial Health SystemsYcpqkj0631 [facility] [id number] Prothrombin Time 37.9 {sec} (Abnormal) Range: 9.1-12.0 [...] performed using the TPSA assay method for the[employer] chemistry system. Values obtained with differentassay methods [...] ng/mL (Abnormal) Range: 4.0-15.2 Comments: Performed at: [facility] [address] [id number] Director: Imelda Nye MD, Phone: [phone] :[phone] PSA 0.8 ng/mL (Normal) Range: 0.0-4.0 [...] :36 Prothrombin Time (PT) Comments: PERFORMED BY: [facility]6370 [facility] [id number] Prothrombin Time 23.6 {sec} (Abnormal) Range: 9.1-12.0 [...] 7-18 GLU 85 mg/dL (Normal) Range: 70-110 : [place] [address] [address] [address] 4283 8.2 m[iU]/mL (Normal) Range: 1.7-8.6 FSH 4309 9.1 m[iU]/mL (Normal) Range: 1.5-12.4 : LIPID LDL 132 mg/dL (Abnormal) Range: 0-130 [...] 200-240 mg/dL Borderline >240 mg/dL High Risk : PRO TIME INR 2.5 (Normal) PROTIME 25.6 s (Abnormal) Range: 11.9-14.4 : PROLACTIN 4465 21.5 ng/mL (Abnormal) Range: 4.0-15.2 : TEST FR 804367 8.7 pg/mL (Normal) Range: 7.2-24.0 Comments: Performed at: [facility] [address] [id number] Director: Imelda Nye MD, Phone: [phone] at: [facility] LabLauren [place] [address]Kpt Director: Jacinto Pavon MD, Phone: [phone] 1-Oka-819011:47 PRO TIME INR 2.9 (Normal) PROTIME 29.2 s (Abnormal) Range: 11.9-14.4 :37 PRO TIME INR 2.3 (Normal) PROTIME 24.2 s (Abnormal) Range: 11.9-14.4 Comments: Effective SEPTEMBER 14, 2010. :20 PRO TIME INR 2.4 (Normal) PROTIME 25.3 s (Abnormal) Range: 11.9-14.4 Comments: Effective SEPTEMBER 14, 2010. :03 Urinalysis, Office (64248) UA - BILIRUBIN Negative (Normal) UA - BLOOD Hemolyzed Moderate (Normal) UA - GLUCOSE Negative (Normal) UA - KETONES Negative mg/dL (Normal) UA - LEUKOCYTE ESTERASE Negative (Normal) UA - NITRITE Negative (Normal) UA - PH 6.0 (Normal) UA - PROTEIN Negative mg/dL (Normal) UA - SPECIFIC GRAVITY 1.025 (Normal) URINE UROBILINGN YESSI TIMED Normal mg/dL (Normal) : PT (Prothrobim Time) Comments: PATIENT NOT FASTINGPERFORMED BY: Intechra HoldingsRUSTMoyyzn9090 [facility] [id number] Information: [id number] (05525) Prothrombin Time 35.2 {sec} (Abnormal) Range: 8.7-11.5 INR 3.3 (Abnormal) Range: 0.8-1.2 Comments: Reference interval is for non-anticoagulated patients. . Suggested INR therapeutic range for Vitamin K anta gonist therapy: Standard Dose (moderate intensity therapeutic range): 2.0 - 3.0 Higher intensity therapeutic range 2.5 - 3.5 :01 PROLACTIN (25823) Comments: PATIENT NOT FASTINGPERFORMED BY: Intechra HoldingsRUSTTsdnei5185 [facility] [id number] Prolactin 20.4 ng/mL (Abnormal) Range: 4.0-15.2 : GONADOTROPIN-FSH (96221) Comments: PATIENT NOT FASTINGPERFORMED BY: Intechra HoldingsRUSTPtmkxr2224 [facility] [id number] FSH 9.0 m[iU]/mL (Normal) Range: 1.5-12.4 :01 GONADOTROPIN-LH (43455) Comments: PATIENT NOT FASTINGPERFORMED BY: LabCorewell Health [facility] Hospital6370 [facility] [id number] LH 6.1 m[iU]/mL (Normal) Range: 1.7-8.6 59-Pfb-447162:15 TESTOSTERONE FREE (07707) Comments: PATIENT WAS FASTINGPERFORMED BY: LabAaron Ville 5159970 [facility] [id number] BY: [address] [id number] Free Testosterone(Direct) 5.0 pg/mL (Abnormal) Range: 7.2-24.0 75-Yks-149649:15 PSA (PROSTATE SPECIFIC Comments: PATIENT WAS FASTINGPERFORMED BY: LabHeart[facility] Yxhbwj2518 [facility] [id number] BY: [address] [id number] ANTIGEN) (V76.44) Prostate Specific Ag, 0.6 ng/mL (Normal) Range: 0.0-4.0 Serum Comments: Chandu ECLIA methodology. .According to the [employer], Serum PSA shoulddecrease and remain at undetectable levels after radicalprostatectomy. The AUA defines biochemical recurrence as an initialPSA value 0.2 ng/mL or greater followed by a subsequent confirmatoryPSA value 0.2 ng/mL or greater.Values obtained with d ifferent assay methods or kits cannot be usedinterchangeably. Results cannot be interpreted as absolute evidenceof the presence or absence of malignant disease. 31-Mbx-431918:15 METABOLIC PANEL, Comments: PATIENT WAS FASTINGPERFORMED BY: Ac[facility] Sensing TechnologyCorewell Health [facility] Hospital6370 [facility] [id number] BY: [address] [id number] COMPREHENSIVE (02420) A/G Ratio 1.6 (Normal) Range: 1.1-2.5 Alkaline [...] Glucose, Serum 84 mg/dL (Normal) Range: 65-99 04-Uix-437239:15 LIPID PANEL (45589) Comments: PATIENT WAS FASTINGPERFORMED BY: CB [facility] Gjdidw4608 [facility] [id number] BY: BN [facility] [address] [id number] LDL Cholesterol Calc 136 mg/dL (Abnormal) Range: 0-99 LDL/HDL Ratio 2.6 {ratio_units} (Normal) Range: 0.0-3.6 Cholesterol, Total 214 mg/dL (Abnormal) Range: 100-199 HDL Cholesterol 52 mg/dL (Normal) Comments: According to ATP-III Guidelines, HDL-C >59 mg/dL is considered anegative risk factor for CHD. Triglycerides 128 mg/dL (Normal) Range: 0-149 VLDL Cholesterol Yimi 26 mg/dL (Normal) Range: 5-40 04-Chu-020300:15 CBC WITH MANUAL DIFF Comments: PATIENT WAS FASTINGPERFORMED BY: CB [facility] Uhehus3395 [place] [facility] [id number] BY: BN [facility] Zezulxwzkk5435 [facility] [id number] Inf ormation: [id number] (25566) Immature Grans (Abs) 0.0 {x10E3/uL} (Normal) Range: [...] (Prothrobim Time) Comments: PATIENT WAS FASTINGPERFORMED BY: [place] 5356470 [facility] [id number] BY: [address] [id number] (06543) Prothrombin Time 31.0 {sec} (Abnormal) Range: 8.7-11.5 INR 2.9 (Abnormal) Range: 0.8-1.2 Comments: Reference interval is for non-anticoagulated patients. . Suggested INR therapeutic range for Vitamin K anta gonist therapy: Standard Dose (moderate intensity therapeutic range): 2.0 - 3.0 Higher intensity therapeutic range 2.5 - 3.5 :28 Prothrombin Time (PT) Comments: PERFORMED BY: [place] [id number] [facility] [id number] Prothrombin Time 18.5 {sec} (Abnormal) Range: 8.7-11.5 INR 1.7 (Abnormal) Range: 0.8-1.2 Comments: Reference interval is for non-anticoagulated patients. . Suggested INR therapeutic range for Vitamin K anta gonist therapy: Standard Dose (moderate intensity therapeutic range): 2.0 - 3.0 Higher intensity therapeutic range 2.5 - 3.5 :17 PT (PROTHROMBIN TIME) Comments: PATIENT NOT FASTINGPERFORMED BY: [place] 5356470 [facility] [id number] Information: [id number] (79952) Prothrombin Time 15.0 {sec} (Abnormal) Range: 8.7-11.5 [...] 9.1-11.7 :52 PRO TIME Comments: Call to DF with results. To be done on Monday. 08/07/10 INR 1.7 (Normal) Comments: CRITICAL VALUE REPEATED AND VERIFIED. CALLED TO GLDKJB24/21/11 MARY OCHOARESULTS READ BACK BY SAME. PROTIME 17.2 s (Abnormal) Range: 9.1-11.7 :57 PT (Prothrobim Time) Comments: standing order to start ; PATIENT NOT FASTINGPERFORMED BY: LabCoHoly Name Medical CenterXtmjkq5524 [facility] [id number] Information: [id number] (39158) Prothrombin Time 28.7 {sec} (Abnormal) Range: 9.1-12.0 Comments: Please note reference interval change INR 2.7 (Abnormal) Range: 0.8-1.2 Comments: Reference interval is for non-anticoagulated patients. . Suggested INR therapeutic range for Vitamin K anta gonist therapy: Standard Dose (moderate intensity therapeutic range): 2.0 - 3.0 Higher intensity therapeutic range 2.5 - 3.5 7-Xop-144927:01 Urinalysis, Office (78017) UA - LEUKOCYTE ESTERASE Negative (Normal) UA [...] 4.6-6.2 WBC 8.4 K/mm3 (Normal) Range: 4.4-11.0 36-Krf-75331:11 COMP METABOLIC GAP 10 (Normal) Range: 5-15 [...] CHOL 179 mg/dL (Normal) Comments: <200 mg/dL Zbisdojjo300-850 mg/dL Borderline>240 mg/dL High Risk :11 PSA, SCREEN 0.7 ng/mL (Normal) Range: 0.0-4.0 18-Jaz-374029:10 Urinalysis, Office (23173) UA - BLOOD Negative (Normal) UA - LEUKOCYTE ESTERASE Negative (Normal) UA - NITRITE Negative (Normal) UA - PH 5.0 (Normal) Comments: 5.5 UA - PROTEIN Negative mg/dL (Normal) UA - SPECIFIC GRAVITY 1.025 (Normal) URINE UROBILINGN YESSI TIMED 2 mg/dL (Normal) UA - BILIRUBIN Negative (Normal) UA - GLUCOSE Negative (Normal) UA - KETONES Negative mg/dL (Normal) 86-Seu-121462:10 URINE WILLEM CULTURE-YESSI COL Comments: PATIENT NOT FASTINGClinical Information: SRC:UR ADD [id number] PERFORMED BY: LabCore[facility]6370 [facility] [id number] COUNT (58166) Result 1 NG36 (Normal) Comments: No growth in 36 - 48 hours. Urine Culture,Comprehensive Final report (Normal) 26-Fyb-19602:00 Urinalysis, Office (96455) UA - BILIRUBIN Negative (Normal) UA - BLOOD Non Hemolyzed Trace (Normal) UA - GLUCOSE Negative (Normal) UA - KETONES Negative mg/dL (Normal) UA - LEUKOCYTE ESTERASE Negative (Normal) Comments: aw UA - NITRITE Negative (Normal) UA - PH 5.0 (Normal) UA - PROTEIN Negative mg/dL (Normal) UA - SPECIFIC GRAVITY 1.025 (Normal) URINE UROBILINGN YESSI TIMED Normal mg/dL (Normal) 7-Wqu-142860:08 Urinalysis, Office (76847) UA - BILIRUBIN Negative (Normal) UA - [...] was performed using the TPSA method for the[employer] chemistry system.Values obtained with different assay methods [...] 47-70 WBC 8.1 K/mm3 (Normal) Range: 4.4-11.0 31-Cup-53238:16 COMP METABOLIC A/G 1.1 {RATIO} (Normal) Range: [...] 500 mg/dL VLDL 22 mg/dL (Normal) Range: -40 :11 PSA,TOT SCREEN 0.92 ng/mL (Normal) Range: [...] Planned Observations PSA (Prostate Specific Antigen), Screening (41883)Indication: Screening for prostate cancer On: 25-Gua-158811:52 Request MICROALBUMIN: CREATININE RATIO (11311) AND (87721)Indication: Benign essential hypertension On: :51 Request URINALYSIS (88045)Indication: Benign essential hypertension On: :51 Request CBC WITH MANUAL DIFF (48625)Indication: Benign essential hypertension On: :51 Request Metabolic Panel, Comprehensive (85331)Indication: Benign essential hypertension On: :51 Request HEPATITIS C ANTIBODY (10987)Indication: Exposure to hepatitis C On: 4-Jkc-223844:47 Request METABOLIC PANEL, COMPREHENSIVE (67408)Indication: Benign essential hypertension On: :46 Request LIPOPROTEIN, BLD, BY NMR (24281)Indication: Benign essential hypertension On: :46 Request RUBEOLA IgG (79199)Indication: Encounter for routine history and physical exam for male On: :42 Request RUBELLA IgG (67602)Indication: Encounter for routine history and physical exam for male On: :42 Request MUMPS IgG (64255)Indication: Encounter for routine history and physical exam for male On: :42 Request HEPATITIS C ANTIBODY (40031)Indication: Encounter for routine history and physical exam for male On: :42 Request PSA (PROSTATE SPECIFIC ANTIGEN) (V76.44)Indication: Encounter for routine history and physical exam for male On: :07 Request URINALYSIS, W/ MICRO (60747)Indication: Benign essential hypertension On: :04 Request METABOLIC PANEL, COMPREHENSIVE (94340)Indication: Benign essential hypertension On: 59-Uxt-22905:04 Request LIPID PANEL (48205)Indication: Benign essential hypertension On: 03-Ape-35891:04 Request CBC W/AUTO DIFF WBC (64627)Indication: Benign essential hypertension On: 25-Lkd-33124:04 Request PT (Prothrobim Time) (34657)Indication: Deep vein thrombosis, unspecified laterality On: 30-Nov-2012 Request Comments: standing order PT (Prothrobim Time) (64890)Indication: Deep vein thrombosis, unspecified laterality On: 31-Oct-2012 Request Comments: standing order PT (Prothrobim Time) (13999)Indication: Deep vein thrombosis, unspecified laterality On: 01-Oct-2012 Request Comments: standing order PT (Prothrobim Time) (14013)Indication: Deep vein thrombosis, unspecified laterality On: 01-Sep-2012 Request Comments: standing order URINALYSIS, W/ MICRO (71581)Indication: Hematuria, unspecified On: 28-Aug-2012 Request PT (Prothrobim Time) (45915)Indication: Deep vein thrombosis, unspecified laterality On: 02-Aug-2012 Request Comments: standing order URINALYSIS, W/ MICRO (17531)Indication: Low HDL (under 40) On: 75-Zax-12101:20 Request METABOLIC PANEL, COMPREHENSIVE (18225)Indication: Elevated blood-pressure reading without diagnosis of hypertension On: 03-Mve-71672:19 Request CBC WITH MANUAL DIFF (31379)Indication: Personal history of thrombosis of leg On: 67-Yqt-99918:19 Request LIPID PANEL (67211)Indication: Low HDL (under 40) On: 01-Juf-15313:19 Request PSA (PROSTATE SPECIFIC ANTIGEN) (V76.44)Indication: Encounter for routine history and physical exam for male On: 36-Ulg-63449:19 Request PT (Prothrobim Time) (64902)Indication: Deep vein thrombosis, unspecified laterality On: 03-Jul-2012 Request Comments: standing order PT (Prothrobim Time) (79723)Indication: Deep vein thrombosis, unspecified laterality On: 03-Jun-2012 Request Comments: standing order PT (Prothrobim Time) (09598)Indication: Deep vein thrombosis, unspecified laterality On: 04-May-2012 Request Comments: standing order METABOLIC PANEL, COMPREHENSIVE (44706)Indication: Low HDL (under 40) On: :07 Request LIPID PANEL (27927)Indication: Low HDL (under 40) On: :07 Request URINALYSIS, W/ MICRO (10837)Indication: Hematuria, unspecified On: :06 Request METABOLIC PANEL, COMPREHENSIVE (75159)Indication: Elevated blood-pressure reading without diagnosis of hypertension On: :56 Request LIPID PANEL (03450)Indication: Elevated blood-pressure reading without diagnosis of hypertension On: :56 Request CBC WITH MANUAL DIFF (11118)Indication: Elevated blood-pressure reading without diagnosis of hypertension On: :56 Request PROLACTIN (28895)Indication: Abnormal blood chemistry On: :56 Request METABOLIC PANEL, COMPREHENSIVE (02503)Indication: Elevated blood-pressure reading without diagnosis of hypertension On: 34-Vog-086120:19 Request LIPID PANEL (89093)Indication: Elevated blood-pressure reading without diagnosis of hypertension On: 01-Sdj-720531:19 Request CBC WITH MANUAL DIFF (15925)Indication: Elevated blood-pressure reading without diagnosis of hypertension On: 30-Eqt-532061:19 Request TESTOSTERONE FREE (17291)Indication: Testicular hypofunction On: 20-Jef-297768:16 Request GONADOTROPIN-FSH (20582)Indication: Testicular hypofunction On: 84-Xxh-126567:15 Request GONADOTROPIN-LH (03678)Indication: Testicular hypofunction On: 34-Ouc-507218:15 Request PROLACTIN (76311)Indication: Testicular hypofunction On: 98-Xwa-866938:15 Request PROLACTIN (49728)Indication: Testicular hypofunction On: 4-Uum-511483:14 Request Comments: 8 weeks URINALYSIS, W/ MICRO (87408)Indication: Hematuria, unspecified On: :23 Request Planned Encounters Medical; [facility] (Doctor) - On: 05-Apr-2018 7:00 [facility] Shreyas PURDY, Chelsey Pritchett MD, Chelsey Hutchins Planned Procedures Radiology - Foot - LeftBy: Ciesa On: 22-Dec-2017 Intent Betty LEON Radiology - Foot - RightBy: Ciesa On: 22-Dec-2017 Intent Betty LEON (57946)By: Chelsey Pritchett MD On: 03-Jul-2014 Intent Chelsey Pritchett MD Comments: see scanned document of test done to see results reviewed today with patient ADMINISTRATION OF INFLUENZA VIRUS On: 28-Mar-2014 Intent VACCINE (G0008)By: Chelsey Pritchett MD, MD, Dana M Flu Vaccine (Quadrivalent) 35481Ku: On: 28-Mar-2014 Intent Chelsey Pritchett MD, MD, Dana Comments: Lot #:[id number] date:mount given:0.5ml Route: IMSite given:left deltoid Given by: Radha Hutchins IMMUNIZ ADMNIN, 1 VAC, SNGL/COMBO On: 26-Feb-2013 Intent (19789)By: Chelsey Pritchett MD, MD, Dana M FLU VAC, SPLIT, >3 YEARS, INTRAMUSC On: 26-Feb-2013 Intent (73996)By: Chelsey Pritchett MD, MD, Dana M Venous Doppler - RightBy: Shreyas On: 26-Feb-2013 Intent Chelsey PURDY MD, Dana M Comments: leg 1 week after surgery check clot pt with history of dvt Eprescribed prescriptions (G8553)By: On: 26-Feb-2013 Intent Long [employer]JUNCT POLITICAL SCIENCE INSTRUCTOR, Rina L Eprescribed prescriptions (G8553)By: On: 18-Dec-2012 Intent Long ADJUNCT POLITICAL SCIENCE INSTRUCTOR, Rina L Eprescribed prescriptions (G8553)By: On: 27-Jul-2012 Intent Long ADJUNCT POLITICAL SCIENCE INSTRUCTOR, Rina L Eprescribed prescriptions ([id number])By: On: 18-Jun-2012 Intent Long [employer] INSTRUCTOR, Rina L Eprescribed prescriptions ([id number])By: On: 27-Mar-2012 Intent Long ADJUN[employer] SCIENCE INSTRUCTOR, Rina L FLU VACCINE H1N1 ([id number])By: Shreyas On: 05-Jan-2012 Intent Chelsey PURDY MD, Dana M FLU VAC, SPLIT, >3 YEARS, INTRAMUSC On: 20-Jan-2011 Intent ([id number])By: Fior Cheek LPN Comments: Lot #[id number]/20/12Site-right deltoidgiven by: Ellis Cheek LPN IMMUNIZ ADMNIN, 1 VAC, SNGL/COMBO On: 20-Jan-2011 Intent ([id number])By: Fior Cheek LPN Eprescribed prescriptions ([id number])By: On: 16-Sep-2010 Intent Chelsey Pritchett MD, MD, Chelsey Hutchins Bio Z ([id number])By: Betty Davis CNP On: 17-Nov-2009 Intent ELECTROCARDIOGRAM, COMPLETE (ECG) On: 17-Nov-2009 Intent ([id number])By: Betty Davis CNP Eye Exam ([id number])By: Karan LARA, On: 17-Nov-2009 Intent Sharron Comments: OD- 20/20-1 OS- 20/20-1 OU- 20/20 TDAP VACCINE >7 IM ([id number])By: On: 01-Sep-2009 Intent Shreyas PURDY, Chelsey Mcclain MD Comments: Lot #[id number]/1/2012Site-right dltDose0.5mlgiven by Isiah Hutchins BIOPSY OF SKIN LESION, SINGLE On: 22-Mar-2006 Intent ([id number])By: Shreyas PURDY, Chelsey Mcclain MD Instructions Name [...] Advance Directives Name Dates Details Immunization Registry [place] - Effective on Effective: 30-Mar-201703/30/2017. Expiration date [...] (06-15-10 End: 08-Jun-2010 9:30 . [facility] ) . There have been no [...] Internal Medicine End: 20-Mar-2006 11:31 Payers Raji RAY; radha guarantor
--- OUTSIDE RECORDS SUMMARY | 2018-05-12 14:36 | XMS RPT_ITS ---
:1960 Author Organization OHIP Care Team Providers Name Role Phone Betty Davis Attending Unavailable Betty Davis Referring Unavailable Bonezzi, Chelsey Primary Care Unavailable Diallo Jacobo Attending Unavailable Diallo Jacobo Referring Unavailable Bonezzi, Chelsey Primary Care Unavailable Diallo Jacobo Attending Unavailable Diallo Jacobo Referring Unavailable Bonezzi, Chelsey Primary Care Unavailable Sara Carter Attending Unavailable Sara Carter Referring Unavailable Bonezzi, Chelsey Primary Care Unavailable TIEN BEAR Referring Unavailable TIEN BEAR Attending Unavailable BONEELVIAI, CHELSEY ALEXYS Referring Unavailable TIEN BEAR Referring Unavailable BONEZZI, CHELSEY Primary Care Unavailable TIEN BEAR Attending Unavailable BONEZZI, CHELSEY Referring Unavailable BONEZZI, CHELSEY Primary Care Unavailable PROBLEMS PROBLEMS DATE TYPE CONDITION / CODE ATTENDING STATUS SOURCE 11/05/2015 Active Acute embolism and TIEN BEAR Active [place] [facility] Other unspecified deep [place] veins of right Repository lower extremity / I82.401(ICD-10) 11/05/2015 Active Arteriovenous TIEN BEAR Active [place] fistula, acquired / [facility] Other I77.0(ICD-10) [place] [facility] 11/05/2015 Admitting Unknown / TIEN BEAR Active [place] [facility] diagnosis UNK(Unknown) [facility] 11/02/2017 Active Unknown / NA Active [place] UNK(Unknown) [facility] Other [place] Rep[facility] PROCEDURES PROCEDURES No Procedure Records FoundRESULTS RESULTS CBC W/DIFF, AUTOMATED Collected: 03/19/2018 Status: F Source: [place] 10:19 AM [facility] REPOSITORY TYPE CODE TESTS RESULT OUT OF RANGE REFERENCE UNITS LAB L100.1000 4.4-11.0 K/mm3 Normal WBC 8.1 LAB L100.1200 4.6-6.2 M/mm3 Normal RBC 4.82 LAB L100.1300 13.0-16.5 g/dl Normal HGB 14.3 LAB L100.1400 40-54 % Normal HCT 43.5 LAB L100.1500 80-94 fL Normal MCV 90.2 LAB L100.1600 27.0-32.0 pg Normal MCH 29.7 LAB L100.1700 32-36 g/gl Normal MCHC 32.9 LAB L100.1810 11.6-14.6 % Normal RDW CV 13.4 LAB L100.1820 35.1-43.9 fl Normal RDW SD 43.5 LAB L100.1900 150-450 K/mm3 Normal PLT 237 LAB L100.2000 6.2-12.0 fl Normal MPV 10.5 LAB L100.2100 47-70 % Normal NEUT% 63.6 LAB L100.2200 19-41 % Normal LY% 24.5 LAB L100.2300 0-10 % Normal MONO% 9.6 LAB L100.2400 0-5 % Normal EO% 1.5 LAB L100.2500 0-1 % Normal BASO% 0.4 LAB L100.2550 0.0-0.9 % Normal IM GRAN % 0.400 Result Comment: IG% - Immature Granulocytes (promyelocytes, myelocytes and metamyelocytes) > 1% indicates that a LEFT SHIFT is Present. LAB L100.2620 2.0-7.7 X10 3/uL Normal Absolute Neut 5.2 LAB L100.2720 0.83-4.51 X10 3/ul Normal Absolute Lymph 1.98 Performed By: #### L100.0100 #### [facility] Shayy Quesada [place], [place], [address] COMPREHENSIVE METABOLIC Collected: 03/19/2018 Status: F Source: [place] 10:19 AM [facility] REPOSITORY TYPE CODE TESTS RESULT OUT OF RANGE REFERENCE UNITS LAB L501.0100 74-106 mg/dL Normal GLU 86 Result Comment: Please note revised GLUCOSE reference range effective 2017. LAB L501.1000 7-18 mg/dL Normal BUN 18 LAB L501.1100 0.70-1.30 mg/dL Normal CREAT,SERUM 1.06 Result Comment: The validity of the calculated GFR AND GFRAA in patients over 70 years has not been determined. Clinical correlation is essential. LAB L501.1110 >60 mL/min Normal EST GFR 76 Result Comment: Non- GFR Calc LAB L501.1115 >60 mL/min Normal EST GFR - AA 92 Result Comment: GFR Calc LAB L501.1300 10-20 RATIO Normal BUN/CRE 17.0 LAB L501.1500 6.4-8.2 g/dL T Normal PROT 8.0 LAB L501.1800 3.2-5.0 g/dL Normal ALB 3.8 LAB L501.1950 2.2-4.2 g/dL Normal GLOB 4.2 LAB L501.2000 0.9-2.4 RATIO Normal A/G 0.9 LAB L501.2200 8.5-10.1 mg/dL CA Normal 9.2 LAB L501.4100 15-37 U/L Normal AST 22 LAB L501.4305 45-117 U/L High ALK P 123 LAB L501.4405 16-61 U/L Normal ALT 28 LAB L501.4600 0.20-1.00 mg/dL T Normal BILI 0.50 LAB L501.5300 136-145 mmol/L NA Normal 141 LAB L501.5600 3.5-5.1 mmol/L K Normal 4.4 LAB L501.5900 98-107 mmol/L CL Normal 105 LAB L501.6100 21.0-32.0 mmol/L Normal CO2 27.0 LAB L501.6200 5-15 Normal GAP 9 Performed By: #### L500.4050, L505.7010 #### [facility] [address] [place], [place], [address] RHEUMATOID FACTOR Collected: 03/19/2018 Status: F Source: JOHN 10:19 AM [facility] REPOSITORY TYPE CODE TESTS RESULT OUT OF RANGE REFERENCE UNITS LAB L505.7010 <15 IU/mL Normal RHEUMATOID FAC < 10.0 Performed By: #### L500.4050, L505.7010 #### [facility] [address] [place], [place], [address] HEPATITIS B SURFACE Collected: 03/19/2018 Status: F Source: JOHN AG 10:19 AM [facility] REPOSITORY TYPE CODE TESTS RESULT OUT OF RANGE REFERENCE UNITS LAB L3100.0400 Negative Normal HB Negative SURF AG Result Comment: Performed at: [facility] [address] [id number] Per[employer]ator Operator [employer] Well: Fidel Gamble PhD, Phone: [phone] Performed at: [facility] Lab[address] [id number] [employer]: Sheridan Almazan MD, Phone: [phone] Performed By: #### L3100.0390, L3100.0528, L3100.0625, L4600.0100 #### [facility] (refer to report for specific site) refer to report for address and phone number HEP B SURFACE Collected: 03/19/2018 Status: F Source: JOHN ANTIBODIES 10:19 AM [facility] REPOSITORY TYPE CODE TESTS RESULT OUT OF RANGE REFERENCE UNITS LAB L3100.0528 . Normal Hep B Reactive Swati AB Result Comment: Non Reactive: Inconsistent with immunity, less than 10 mIU/mL Reactive: Consistent with immunity, greater than 9.9 mIU/mL Performed By: #### L3100.0390, L3100.0528, L3100.0625, L4600.0100 #### [facility] (refer to report for specific site) refer to report for address and phone number HEPATITIS C ANTIBODIES Collected: 03/19/2018 Status: F Source: [place] 10:19 AM [facility] REPOSITORY TYPE CODE TESTS RESULT OUT OF RANGE REFERENCE UNITS LAB L3100.0650 0.0-0.9 s/co ratio Normal HEP C AB 0.2 Result Comment: Negative: < 0.8 Indeterminate: 0.8 - 0.9 Positive: > 0.9 The CDC recommends that a positive HCV antibody result be followed up with a HCV Nucleic Acid Amplification test (803010). Performed By: #### L3100.0390, L3100.0528, L3100.0625, L4600.0100 #### [facility] (refer to report for specific site) refer to report for address and phone number CCP IGG ANTIBODIES Collected: 03/19/2018 Status: F Source: [place] 10:19 AM [facility] REPOSITORY TYPE CODE TESTS RESULT OUT OF RANGE REFERENCE UNITS LAB L4600.0100 0-19 units Normal ANTI-CCP 6 171820 Result Comment: Negative <20 Weak positive 20 - 39 Moderate positive 40 - 59 Strong positive >59 Performed By: #### L3100.0390, L3100.0528, L3100.0625, L4600.0100 #### [facility] (refer to report for specific site) refer to report for address and phone number PELVIS 1 OR 2 VIEWS Observed: 03/19/2018 Status: F Source: [place] 9:56 AM [facility] REPOSITORY [facility] Imaging Services [address] [place] [address] Pelvis 1 or 2 Views MR#: [id number] Acct: [id number] Name: KERA RAY JrSamantha Rep #: [id number] : 1960 M 57 From: Cooper Boone MD PCP: Chelsey Clay MD Status: REG CLI Study: Pelvis 1 or 2 Views Date of Exam: 03/19/18 Exam# [id number] Ordering Dr: Sara Carter MD STUDY: X-RAY - PELVIS REASON FOR EXAM: Male, 57 years old. Pain. Foot pain. 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 TECHNIQUE: One view of the pelvis was obtained. COMPARISON: None. FINDINGS: There is a non-specific bowel gas pattern. There are multiple calcified phleboliths. Normal bilateral iliac wings, sacroiliac joints and visualized sacrum. Normal visualized bilateral superior and inferior pubic rami. Normal pubic symphysis. Normal ischial tuberosities. Normal visualized right femoral head. Normal right acetabulum. Normal right hip joint. Normal visualized left femoral head. Normal left acetabulum. Normal left hip joint. RAD/Pelvis 1 or 2 Views IMPRESSION: Normal x-ray examination of the pelvis. Electronically Signed: Cooper Boone MD at 2:21 EST , Service support , CC: Chelsey Clay MD; Sara Carter MD Pediatric Rn: Signed LOWER EXT/NO JT/W/O Observed: 02/20/2018 Status: F Source: [place] 7:10 AM [facility] REPOSITORY [facility] Imaging Services [address] [place] [address] Lower Ext/No Jt/w/o MR#: [id number] Acct: [id number] Name: KERA RAY . Rep #: [id number] : 1960 57 From: Austin Osorio MD PCP: Chelsey Clay MD Status: REG CLI Study: Lower Ext/No Jt/w/o Date of Exam: 02/20/18 Exam# [id number] Ordering Dr: Diallo Jacobo DPCuong STUDY: MRI LEFT FOREFOOT WITHOUT CONTRAST REASON FOR EXAM: Pain and swelling of the third toe, began 4 months ago with a bite. TECHNIQUE: Standardized fat and water weighted pulse sequences were obtained in all 3 orthogonal planes. COMPARISON: Radiographs 12/22/2017. FINDINGS: Normal metatarsophalangeal joint of the hallux. Normal tibial and fibular sesamoids, with normal sesamoids-first metatarsal articulations. Normal interphalangeal joint of the hallux. Normal proximal and distal phalanges of the great toe. Normal medial and lateral heads of the flexor hallucis brevis tendons. Normal flexor and extensor hallucis longus tendons. Normal second through fifth metatarsophalangeal (MTP) joints. There is mild bone edema of the third proximal and middle phalanges (T2 series 4 images 12, 13; inversion recovery series 7 images 25-31). There is no decreased T1 bone marrow signal to indicate osteomyelitis. Normal proximal and distal interphalangeal joints of the third digit without demonstrated arthropathy (T2 series 4 image 11). [...] 28) and at the level of the distal third metatarsal (inversion recovery series 7 images 16, 17). Normal extensor tendon of the third digit. Normal visualized metatarsi. Normal intrinsic muscles of the forefoot. There is edema in the subcutis adipose space of the third digit. There is no focal fluid collection to indicate soft tissue abscess. MRI/Lower Ext/No Jt/w/o IMPRESSION: Mild bone edema of the third proximal and middle phalanges. Soft tissue fullness in the plantar aspect of the second webspace suggestive of an intermetatarsal neuroma. Mild flexor tenosynovitis of the third digit. No demonstrated arthropathy of the third digit. Electronically Signed: Austin Osorio MD at 14:13 EST Tel , Service support , CC: Chelsey Clay MD; Diallo Jacobo DPM Pediatric Rn: Signed ERYTHROCYTE SED RATE Collected: 01/25/2018 Status: F Source: [place] 7:54 AM [facility] REPOSITORY TYPE CODE TESTS RESULT OUT OF RANGE REFERENCE UNITS LAB L102.0000 0-20 mm/hr High SED RATE 28 Performed By: #### L101.9900, L100.0100 #### [facility] [address] [place], [place], [address] CBC W/DIFF, AUTOMATED Collected: 01/25/2018 Status: F Source: [place] 7:54 AM [facility] REPOSITORY TYPE CODE TESTS RESULT OUT OF RANGE REFERENCE UNITS LAB L100.1000 4.4-11.0 K/mm3 Normal WBC 10.0 LAB L100.1200 4.6-6.2 M/mm3 Normal RBC 4.85 LAB L100.1300 13.0-16.5 g/dl Normal HGB 14.5 LAB L100.1400 40-54 % Normal HCT 43.3 LAB L100.1500 80-94 fL Normal MCV 89.3 LAB L100.1600 27.0-32.0 pg Normal MCH 29.9 LAB L100.1700 32-36 g/gl Normal MCHC 33.5 LAB L100.1810 11.6-14.6 % Normal RDW CV 12.9 LAB L100.1820 35.1-43.9 fl Normal RDW SD 42.1 LAB L100.1900 150-450 K/mm3 Normal PLT 243 LAB L100.2000 6.2-12.0 fl Normal MPV 10.6 LAB L100.2100 47-70 % Normal NEUT% 69.3 LAB L100.2200 19-41 % Low LY% 18.2 LAB L100.2300 0-10 % High MONO% 10.2 LAB L100.2400 0-5 % Normal EO% 1.6 LAB L100.2500 0-1 % Normal BASO% 0.4 LAB L100.2550 0.0-0.9 % Normal IM GRAN % 0.300 Result Comment: IG% - Immature Granulocytes (promyelocytes, myelocytes and metamyelocytes) > 1% indicates that a LEFT SHIFT is Present. LAB L100.2620 2.0-7.7 X10 3/uL Normal Absolute Neut 6.9 LAB L100.2720 0.83-4.51 X10 3/ul Normal Absolute Lymph 1.81 Performed By: #### L101.9900, L100.0100 #### [facility] [address] [place], [address] COMPREHENSIVE METABOLIC Collected: 01/25/2018 Status: F Source: [place] 7:54 AM [facility] REPOSITORY TYPE CODE TESTS RESULT OUT OF RANGE REFERENCE UNITS LAB L501.0100 74-106 mg/dL Normal GLU 87 Result Comment: Please note revised GLUCOSE reference range effective 2017. LAB L501.1000 7-18 mg/dL Normal BUN 18 LAB L501.1100 0.70-1.30 mg/dL Normal CREAT,SERUM 1.05 Result Comment: The validity of the calculated GFR AND GFRAA in patients over 70 years has not been determined. Clinical correlation is essential. LAB L501.1110 >60 mL/min Normal EST GFR 77 Result Comment: Non- GFR Calc LAB L501.1115 >60 mL/min Normal EST GFR - AA 94 Result Comment: GFR Calc LAB L501.1300 10-20 RATIO Normal BUN/CRE 17.1 LAB L501.1500 6.4-8.2 g/dL T Normal PROT 7.9 LAB L501.1800 3.2-5.0 g/dL Normal ALB 3.7 LAB L501.1950 2.2-4.2 g/dL Normal GLOB 4.2 LAB L501.2000 0.9-2.4 RATIO Normal A/G 0.9 LAB L501.2200 8.5-10.1 mg/dL CA Normal 9.0 LAB L501.4100 15-37 U/L Low AST 14 LAB L501.4305 45-117 U/L Normal ALK P 112 LAB L501.4405 16-61 U/L Normal ALT 30 LAB L501.4600 0.20-1.00 mg/dL T Normal BILI 0.40 LAB L501.5300 136-145 mmol/L NA Normal 142 LAB L501.5600 3.5-5.1 mmol/L K Normal 4.5 LAB L501.5900 98-107 mmol/L High CL 108 LAB L501.6100 21.0-32.0 mmol/L Normal CO2 27.0 LAB L501.6200 5-15 Normal GAP 7 Performed By: #### L500.4050, L501.1400, L501.6710, L505.7010 #### [facility] [address] [place], [address] URIC ACID Collected: 01/25/2018 Status: F Source: [place] 7:54 AM [facility] REPOSITORY TYPE CODE TESTS RESULT OUT OF RANGE REFERENCE UNITS LAB L501.1400 3.5-7.2 mg/dL Normal URIC 6.1 Result Comment: The drugs N-Acetylcysteine and Metamizole may falsely depress this assay. Performed By: #### L500.4050, L501.1400, L501.6710, L505.7010 #### [facility] [address] [place], [place], [id number] CRP Collected: 01/25/2018 Status: F Source: [place] 7:54 AM [facility] REPOSITORY TYPE CODE TESTS RESULT OUT OF RANGE REFERENCE UNITS LAB L501.6710 0.0-3.0 mg/L High 8.46 C-REACTIVE PROT Result Comment: C-Reactive Protein (CRP) provides useful information for the diagnosis, therapy and monitoring of inflammatory processes and associated diseases. For the evaluation of Relative Risk for Cardiovascular Disease, a High Sensitivity CRP (HSCRP) should be ordered. Performed By: #### L500.4050, L501.1400, L501.6710, L505.7010 #### [facility] [address] [place], [place], [id number] RHEUMATOID FACTOR Collected: 01/25/2018 Status: F Source: [place] 7:54 AM [facility] REPOSITORY TYPE CODE TESTS RESULT OUT OF RANGE REFERENCE UNITS LAB L505.7010 <15 IU/mL Normal RHEUMATOID FAC < 10.0 Performed By: #### L500.4050, L501.1400, L501.6710, L505.7010 #### [facility] [address] [place], [place], [id number] ANTINUCLEAR ANTIBODIES Collected: 01/25/2018 Status: F Source: [place] DIRECT 7:54 AM [facility] REPOSITORY TYPE CODE TESTS RESULT OUT OF RANGE REFERENCE UNITS LAB L3100.5475 Negative Normal Negative DEMETRIA-DIRECT Result Comment: Performed at: [address] [id number] [employer] Well: Fidel Gamble PhD, Phone: [phone] Performed By: #### L3100.5475 #### [facility] (refer to report for specific site) refer to report for address and phone number HLA B27 Collected: 01/25/2018 Status: F Source: [place] 7:54 AM [facility] REPOSITORY TYPE CODE TESTS RESULT OUT OF RANGE REFERENCE UNITS LAB L3410.1500 . Normal HLA Negative B27 Result Comment: HLA-B*27 Negative B27 allele interpretation for all loci based on IMGT/HLA database version 3.27 This test was developed and its performance characteristics determined by [facility]. It has not been cleared or approved by the Food and Drug Administration. [facility] CLIA ID Number [id number] This test was performed using PCR (Polymerase Chain Reaction)/SSOP (Sequence Specific Oligonucleotide Probes) technique. SBT (Sequence Based Typing) and/or SSP (Sequence Specific Primers) may be used as supplemental methods when necessary. Please contact [facility] Customer Service at if you have any questions. Director of [facility] Laboratory Dr Hermes Blair, PhD Performed at: - [address] [id number] [employer]: Jacinto Pavon MD, Phone: [phone] Performed at: [address] [place] [id number] [employer]: Hermes Blair PhD, Phone: [phone] Performed By: #### L3410.1400, L7000.4610 #### [facility] (refer to report for specific site) refer to report for address and phone number LYME ANTIBODIES,W BLOT Collected: 01/25/2018 Status: F Source: [place] 7:54 AM [facility] REPOSITORY TYPE CODE TESTS RESULT OUT OF RANGE REFERENCE UNITS LAB L7000.5920 . Normal P93 Ab Absent LAB L7000.5940 . Normal P66 Ab Absent LAB L7000.5960 . Normal P58 Ab Absent LAB L7000.5980 . Normal P45 Ab Absent LAB L7000.6000 . Normal P41 Ab Absent LAB L7000.6020 . Normal P39 Ab Absent LAB L7000.6040 . Normal P30 Ab Absent LAB L7000.6060 . Normal P28 Ab Absent LAB L7000.6080 . High P23 Ab Present LAB L7000.6100 . Normal P18 Ab Absent LAB L7000.6200 . Normal LYME IgG Negative INTERP Result Comment: Positive: 5 of the following Borrelia-specific bands: 18,23,28,30,39,41,45,58, 66, and 93. Negative: No bands or banding patterns which do not meet positive criteria. LAB L7000.6320 . Normal P41 Ab Absent LAB L7000.6340 . Normal P39 Ab Absent LAB L7000.6360 . Normal P23 Ab Absent LAB L7000.6400 . Normal LYME IgM Negative INTERP Result Comment: Note: An equivocal or positive EIA result followed by a negative Western Blot result is considered NEGATIVE. An equivocal or positive EIA result followed by a positive Western Blot is considered POSITIVE by the CDC. Positive: 2 of the following bands: 23,39 or 41 Negative: No bands or banding patterns which do not meet positive criteria. Criteria for positivity are those recommended by CDC/ASTPHLD. p23=Osp C, r04=noskcdpco Note: Sera from individuals with the following may cross react in the [place] Western Blot assays: other spirochetal diseases (periodontal disease, leptospirosis, relapsing fever, yaws, and pinta); connective autoimmune (Rheumatoid Arthritis and Systemic Lupus Erythematosus and also individuals with Antinuclear Antibody); other infections ([place] Spotted Fever; Ronal-Capone Virus, and Cytomegalovirus). Performed By: #### L3410.1400, L7000.5800 #### [facility] (refer to report for specific site) refer to report for address and phone number FOOT MIN 3 VIEWS Observed: 12/22/2017 Status: F Source: [place] 8:41 AM [facility] REPOSITORY [facility] Imaging Services [address] [place] [address] Foot min 3 Views MR#: [id number] Acct: [id number] Name: KERA RAY JR Rep #: [id number] : 1960 M 57 From: Gricelda Weiss MD PCP: Chelsey Clay MD Status: REG CLI Study: Foot min 3 Views Date of Exam: 12/22/17 Exam# [id number] Ordering Dr: Betty Davis STUDY: X-RAY - LEFT FOOT CLINICAL: Male, 57 years old. Mid foot pain TECHNIQUE: Three view(s) of the foot were obtained. COMPARISON: None. FINDINGS: Bones: There are no acute osseous abnormalities. Joints: The visualized joints are unremarkable. Soft tissues: The soft tissues are unremarkable. Foreign body: None RAD/Foot min 3 Views IMPRESSION: No significant abnormalities are seen radiographically in the left foot. If further evaluation is needed or there is clinical concern for a stress fracture, an MRI or nuclear medicine study can be obtained. Electronically Signed: Gricelda Weiss MD at 1:38 EDT Tel Direct: [phone], Service support , CC: Betty Davis NP; Chelsey Clay MD Pediatric Rn: Signed PROGRESS Observed: 11/14/2017 Status: COMPLETED Source: [place] 1:55 PM CLINIC OTHER CAMPUS REPOSITORY O ID: [id number] Author: Tien Bear Service: (none) Author Type: Physician Type: Progress Notes Filed: 11/14/2017 1:57 PM Note Text: I spent 15+ minutes in the visit, with more than 50% of the total [id number]-tc-ydas time of the visit in counseling / coordination of care. 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 In 2014 we exited tried to do some interventions on his. He still has some leg swelling but continues to wear support stockings. 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 Ultrasound was reviewed and compared to previous studies. At this time there is still an audible bruit but no visible abnormalities in the right groin. His weight has not changed dramatically but he still significantly overweight. We'll plan on reviewing his ultrasound and comparing it to the previous year in the upcoming vascular conference. Should we be able to say that this is stable I believe the impression would be that we'll just continue to follow for now. We will plan on at least an ultrasound again next year and that may not require follow-up if it stable at least not an annual follow-up. CNOV Observed: 11/14/2017 Status: COMPLETED Source: [place] 1:00 PM CLINIC OTHER CAMPUS REPOSITORY Office Visit (AGVASACC) KERA RAY ([id number]) 1960 M Date Time Provider Department 11/14/17 1:00 PM TIEN BEAR During your visit today, we recorded the following information about you: Pulse Respiration Blood pressure Weight 76/minute 16/minute 120/70 124.7 kg Height 1.702 m Tien Bear MD 11/14/2017 1:57 PM Signed I spent 15+ minutes in the visit, with more than 50% of the total [id number]-[id number] time of the visit in counseling / coordination of care. 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 In 2014 we exited tried to do some interventions on his. He still has some leg swelling but continues to wear support stockings. 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 Ultrasound was reviewed and compared to previous studies. At this time there is still an audible bruit but no visible abnormalities in the right groin. His weight has not changed dramatically but he still significantly overweight. We'll plan on reviewing his ultrasound and comparing it to the previous year in the upcoming vascular conference. Should we be able to say that this is stable I believe the impression would be that we'll just continue to follow for now. We will plan on at least an ultrasound again next year and that may not require follow-up if it stable at least not an annual follow-up. Referring Provider: CHELSEY CLAY [[id number]] Allergies As of Date: 11/14/2017 Noted Allergy Reaction ADHESIVE 06/26/2015 14 - Other: See Comments Comments: Skin irritation. Redness. PENICILLINS 04/21/2009 2 - Rash 14 - Other: See Comments Comments: Fever sutures [Other] 04/21/2009 14 - Other: See Comments Comments: self absorbing. DISSOLVING STITCHES. Skin blisters. Festered reddened inflammation. Date Reviewed: 11/14/2017 Reviewed by: Tien Bear - Fully Assessed Reason for Visit: Follow Up [171] Cmt: Arteriovenous fistula. 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 TECHNIQUE: Color-flow duplex ultrasound interrogated the vascularity in the right upper thigh. FINDINGS: A high flow arteriovenous malformation is still present with multiple arterial feeders off the superficial femoral artery and its branches directly feeding the deep venous system. There is ar terialization of venous flow above the arteriovenous malformation. 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 ALLERGIES ALLERGIES DATE TYPE / CODE NAME / CODE REACTION SEVERITY SOURCE 06/26/2015 Drug ADHESIVE OTHER: SEE C Campbell Class/[id number](SN Clinic Other OMED [facility]) [place] 04/21/2009 Drug PENICILLINS RASH Campbell Class/[id number](SN Clinic Other OMED CT) [place] [facility] 04/21/2009 Miscellaneous OTHER OTHER: SEE C Campbell Allergy/[id number]( Clinic Other SNOMED CT) [place] [facility] NG/[id number](SNOME ADHESIVE [facility] D [facility]) [facility] Rep[facility] NG/[id number](SNOME PENICILLINS [facility] D [facility]) [facility] Repository NG/[id number](SNOME OTHER [facility] D [facility]) [facility] Repository ENCOUNTERS ENCOUNTERS ADMIT/DISCHARGE ACCOUNT NUMBER ADMITTING ENCOUNTER LOCATION SOURCE CLASS 03/19/2018 [id number] [facility] ding:HPRAD Repository 02/20/2018 [id number] [facility] ding:MRI Repository 01/25/2018 [id number] [facility] ding:MTLAB Repository 12/22/2017 [id number] [facility] ding:HPRAD Repository 11/14/2017/11/15/19 [id number] Ambulatory [address] Repository 11/14/2017/11/15/19 [id number] Ambulatory [address] MEDICAL [place] 11/02/2017 [id number] Ambulatory [facility] Repository 11/02/2017/11/03/19 [id number] Ambulatory [address] [facility] PAYERS ENCOUNTER GUARANTOR PAYER SUBSCRIBER SOURCE 03/19/2018 KERA RAY Primary KELSEA E John Jr.[address] Insurance:[employer]AREPol [place]OPERDOB[place] Number: [id number] [address]Gyh: (330) [id number] Repository [phone] (HP) e Date:[id number] [address]RM: 03/19/2018 Secondary NOT GIVENUNK [place] Insurance:SELF PAY [facility] Number: Effective Repository Date:2018-03-19 02/20/2018 KERA RAY Primary KELSEA E Carman Jr.[address] Insurance:AULTCAREPol EWINGDOB: [place] Number: [id number] [address]Kyg: (330) [id number] Repository [phone] () e Date:[id number] [address] [address]CH: 02/20/2018 Secondary NOT GIVENUNK John Insurance:SELF PAY [facility] Number: Effective Repository Date:2018-02-14 01/25/2018 Kera Ray Primary KELSEA E Carman [address] Insurance:AULTCAREPol [place]DOB[place] Number: [id number] [address]Ysy: (330) [id number] Repository [phone] () e Date:[id number] [address]HG: 01/25/2018 Secondary NOT GIVENUNK John Insurance:SELF PAY [facility] Number: Effective Repository Date:2018-01-25 12/22/2017 Kera Rya Primary KELSEA E Carman [address] Insurance:AULTCAREPol [place]DOB[place] Number: [id number] [address]Ebg: (330) [id number] Repository [phone] (HP) e Date:[id number], [place] [address]UI: 12/22/2017 Secondary NOT GIVENUNK Car[place] Insurance:SELF PAY [facility] Number: Effective Repository Date:2017-12-22 11/14/2017 KERA Mason Primary KELSEA E [facility] EWINGDOB: [facility] EW[facility]DOB: [facility] S icy Number: [id number] Repository ALICE LINDSAY [id number] [place] [phone]: e Date: () 11/02/2017 KERA Mason Primary KELSEA E [facility] EWINGDOB: [facility] EWINGDOB: [facility] S icy Number: [id number] Repository ALICE LINDSAY, [id number] [place] [phone]: e Date: ()
== END ==
PROVIDERS: Family Provider Internal Medicine; PCP Internal Medicine; Referring Provider Internal Medicine Rheumatology; Visit Provider Internal Medicine Rheumatology
DX: M06.4 Inflammatory polyarthropathy (principal); M21.40 Flat foot [pes planus] (acquired), unspecified foot; I10 Essential (primary) hypertension; I77.0 Arteriovenous fistula, acquired
CPT/HCPCS: 36415; 72170; 80053; 85025; 86200; 86431; 86706; 86803; 87340

== ENCOUNTER → 2018-04-27 13:15 | Outpatient (CLI) | payer SELFPAY ==
[2018-04-27 13:50] VITALS: BP 137/80; PULSE 67; RESP 16; O2SAT 94; BMI 42.1
--- NOTE | 2018-04-27 13:55 | CT_ITS ---
STUDY: CT CHEST WITHOUT CONTRAST REASON FOR EXAM: Male, 57 years old. Hyperlipidemia RADIATION DOSAGE (If Supplied By Facility): CTDIvol = ( 12.19 ) mGy, DLP = ( 219.42 ) mGycm TECHNIQUE: Transaxial imaging was performed without the administration of intravenous contrast material. Individualized dose optimization techniques were used for this CT. COMPARISON: None. FINDINGS: Limited study was performed demonstrating calcium agatston score of 0. Heart size is normal. There are small calcified mediastinal nodes. Visualized portions of the lungs are clear of infiltrate without evidence for focal nodule CT/Limited Chest CT w/CCTA IMPRESSION: Coronary calcium score of 0 Electronically Signed: Diallo Humphrey MD at 17:36 EST , Service support ,
--- NOTE | 2018-04-30 13:04 | CA.SCORE ---
Calcium Scoring Date of Study:: 04/27/18 Coronary Calcium Scoring: Agatstons score=0 Conclusion: Patient underwent CTA evaluation on 04/27/18. Patient had the following calcium score is noted: Left main: 0 Left anterior descending, (LAD): 0 Left circumflex: 0 Right coronary artery: 0 Total Agatston score: 0 Results: The total calcium score of 0 is below the 25th percentile for men between the ages of 55 and 59. (Exact percentile calculated to be 0%; this means 0% of the population has similar calcium score and 99% of the population has a higher calcium score than this patient.) Impression: Impression: With a calcium score of 0, the patient has no identifiable athero-sclerotic plaques. Very low cardiovascular disease risk. Less than 5% chance of presence of coronary artery disease. Essentially a negative examination. Full evaluation of cardiac risk should include an assessment of all conventional risk factors, and the scores and percentile ranking is reported herein should be evaluated in this context. Recommend considering clinical correlation or alternative mode of testing if coronary occlusive disease is strongly suspected.
--- NOTE | 2018-04-30 13:09 | CCTA_ITS ---
Calcium Scoring Date of Study:: 04/27/18 Coronary Calcium Scoring: Agatstons score=0 Conclusion: Patient underwent CTA evaluation on 04/27/18. Patient had the following calcium score is noted: Left main: 0 Left anterior descending, (LAD): 0 Left circumflex: 0 Right coronary artery: 0 Total Agatston score: 0 Results: The total calcium score of 0 is below the 25th percentile for men between the ages of 55 and 59. (Exact percentile calculated to be 0%; this means 0% of the population has similar calcium score and 99% of the population has a higher calcium score than this patient.) Impression: Impression: With a calcium score of 0, the patient has no identifiable athero- sclerotic plaques. Very low cardiovascular disease risk. Less than 5% chance of presence of coronary artery disease. Essentially a negative examination. Full evaluation of cardiac risk should include an assessment of all conventional risk factors, and the scores and percentile ranking is reported herein should be evaluated in this context. Recommend considering clinical correlation or alternative mode of testing if coronary occlusive disease is strongly suspected.
== END ==
PROVIDERS: Family Provider Internal Medicine; PCP Internal Medicine; Referring Provider Internal Medicine; Visit Provider Internal Medicine
DX: E78.5 Hyperlipidemia, unspecified (principal)
CPT/HCPCS: 75571; 76380

== ENCOUNTER → 2019-02-19 | Outpatient (CLI) | payer OTHER, SELFPAY ==
[2018-04-27 13:50] VITALS: BMI 42.1
--- NOTE | 2019-02-19 16:05 | RAD_ITS ---
STUDY: X-RAY - PELVIS AND BILATERAL HIPS REASON FOR EXAM: Male, 58 years old. Pain TECHNIQUE: AP view of the pelvis.? 2 views of the right hip, and 2 views of the left hip were obtained. COMPARISON: None. FINDINGS: There is a non-specific bowel gas pattern. Normal visualized soft tissue structures. Normal bilateral iliac wings, sacroiliac joints and visualized sacrum. Normal bilateral superior and inferior pubic rami. Normal pubic symphysis. Normal bilateral ischial tuberosities. Normal visualized right femoral head. Normal right acetabulum. Normal right hip joint. Normal visualized left femoral head. Normal left acetabulum. Normal left hip joint. RAD/Hips B/L min 2 views w/ Pelvis IMPRESSION: Normal x-ray examination of the pelvis and bilateral hips. Electronically Signed: Diallo Humphrey MD at 22:20 EST , Service support ,
--- NOTE | 2019-02-19 16:10 | RAD_ITS ---
STUDY: X-RAY - SACROILIAC JOINTS REASON FOR EXAM: Male, 58 years old. Acute back pain TECHNIQUE: 3 view(s) of the sacroiliac joints were obtained. COMPARISON: None. FINDINGS: Normal bilateral sacroiliac joints. Normal visualized sacral ala and sacrum. Normal visualized iliac bones. Normal visualized soft tissue structures. RAD/S-I Jts 3 or More Views IMPRESSION: Normal x-ray examination of the bilateral sacroiliac joints. Degenerative changes of the lumbar spine. Electronically Signed: Diallo Humphrey MD at 17:05 EST , Service support ,
== END | disposition home or self-care (01) ==
PROVIDERS: Family Provider Internal Medicine; PCP Internal Medicine; Referring Provider Internal Medicine; Visit Provider Internal Medicine
DX: M54.9 Dorsalgia, unspecified (principal); M25.551 Pain in right hip; M25.552 Pain in left hip
CPT/HCPCS: 72202; 73521

== ENCOUNTER → 2025-02-12 | Outpatient (CLI) | payer BC, SELFPAY ==
[2025-02-12 10:28] LABS: Hematocrit 45.5 % (40-54); Hemoglobin 14.9 g/dL (13.0-16.5); Immature Granulocytes Count 0.050 X10^3/uL (0.0-0.0); Mean Corp Hgb Conc 32.7 g/dL (32-36); Mean Corpuscular Volume 91.2 fL (80-94); Mean Platelet Vol. 10.9 fl (6.2-12.0); NRBC Flagged by Analyzer 0 % (0-5); Platelet Count 216 K/mm3 (150-450); RBC Distribution Width CV 13.2 % (11.6-14.6); RBC Distribution Width SD 44.4 fl (35.1-43.9); Red Blood Count 4.99 M/mm3 (4.6-6.2); White Blood Count 9.1 K/mm3 (4.4-11.0)
[2025-02-12 10:54] LABS: AST(SGOT) 54 U/L (<=37); Alanine Aminotransfer ALT/SGPT 276 U/L (<=46); Albumin, Serum 4.3 g/dL (3.4-4.8); Alkaline Phosphatase 151 U/L (40-129); Anion Gap 11 (5-15); BUN 32 mg/dL (4-19); BUN/Creat Ratio 25.4 RATIO (10-20); Calcium,Total 10.1 mg/dL (7.6-11.0); Carbon Dioxide 24.5 mmol/L (21.0-32.0); Chloride 102 mmol/L (98-108); Cholesterol 216 mg/dL (<=200); Globulin 3.5 g/dL (2.2-4.2); Glucose 93 mg/dL (70-99); Low Density Lipoprotein Calc. 146 mg/dL; Potassium 4.4 mmol/L (3.3-5.1); Triglycerides 126 mg/dL; Very Low Density Lipoprotein 25 mg/dL (5-40); cholesterol:hdl ratio screen 4.57
== END | disposition home or self-care (01) ==
PROVIDERS: PCP Internal Medicine; Referring Provider Internal Medicine; Visit Provider Internal Medicine
DX: I10 Essential (primary) hypertension (principal)
CPT/HCPCS: 36415; 80053; 80061; 85025

== ENCOUNTER → 2025-02-14 | Outpatient (CLI) | payer BC, SELFPAY ==
--- NOTE | 2025-02-14 07:04 | US_ITS ---
PROCEDURE: US/Abdomen Limited
== END | disposition home or self-care (01) ==
PROVIDERS: PCP Internal Medicine; Referring Provider Internal Medicine; Visit Provider Internal Medicine
DX: R10.9 Unspecified abdominal pain (principal); R79.89 Other specified abnormal findings of blood chemistry
CPT/HCPCS: 76705

== ENCOUNTER → 2025-03-17 | Outpatient (CLI) | payer BC, SELFPAY ==
[2025-03-17 12:43] LABS: AST(SGOT) 19 U/L (<=37); Alanine Aminotransfer ALT/SGPT 19 U/L (<=46); Albumin, Serum 4.3 g/dL (3.4-4.8); Alkaline Phosphatase 104 U/L (40-129); Anion Gap 10 (5-15); BUN 16 mg/dL (4-19); BUN/Creat Ratio 14.6 RATIO (10-20); Calcium,Total 9.8 mg/dL (7.6-11.0); Carbon Dioxide 27.4 mmol/L (21.0-32.0); Chloride 101 mmol/L (98-108); Globulin 3.4 g/dL (2.2-4.2); Glucose 97 mg/dL (70-99); Potassium 4.4 mmol/L (3.3-5.1)
== END | disposition home or self-care (01) ==
LOC: CIMLAB 10:12
PROVIDERS: PCP Internal Medicine; Referring Provider Internal Medicine; Visit Provider Internal Medicine
DX: R73.09 Other abnormal glucose (principal); R79.89 Other specified abnormal findings of blood chemistry
CPT/HCPCS: 36415; 80053; 83036; 84443